=== PATIENT | female | born 1950 | race Caucasian/White ===

== ENCOUNTER → 2017-11-11 08:27 | Outpatient (REF) | payer MEDICARE, MEDICAID, SELFPAY ==
[2017-11-11 10:08] LABS: T4 Total Thyroxine 8.11 ug/dL (5.5-11.0)
[2017-11-11 10:22] LABS: TSH w/ Reflex to FT4 0.03 uIU/mL (0.47-4.68)
[2017-11-11 10:50] LABS: Free T4, Direct Thyroxine 1.25 ng/dL (0.78-2.19)
== END ==
LOC: LAB 08:27
PROVIDERS: PCP Family Medicine; Visit Provider Family Medicine
DX: R53.1 Weakness (principal)
CPT/HCPCS: 36415; 84436; 84439; 84443

== ENCOUNTER → 2018-02-21 10:31 | Outpatient (CLI) | payer MEDICARE, MEDICAID, SELFPAY ==
[2018-02-21 13:18] LABS: Free T4, Direct Thyroxine 1.09 ng/dL (0.78-2.19)
== END ==
PROVIDERS: Family Medicine; Visit Provider Registered Nurse
DX: E07.9 Disorder of thyroid, unspecified (principal)
CPT/HCPCS: 36415; 84439; 84443

== ENCOUNTER → 2018-03-10 13:22 | Outpatient (CLI) | payer MEDICARE, MEDICAID, SELFPAY ==
--- NOTE | 2018-03-10 | DI.US.S_ITS ---
PROCEDURE: US CAROTID DOPPLER BI INDICATIONS: RIGHT PARTIAL RETINAL VASCULAR OCCULSION TECHNIQUE: Color and pulse Doppler interrogation was performed of both carotid systems, with image documentation and velocity measurements. COMPARISON: None. FINDINGS: Stenosis calculations are based on SRU (Society of Radiologists in Ultrasound) criteria. Right side: Brachial blood pressure: Not obtained Common carotid artery peak systolic velocity: 41 cm/sec. Internal carotid artery peak systolic velocity: 35 cm/sec. Internal carotid artery end diastolic velocity: 13 cm/sec. External carotid artery peak systolic velocity: 68 cm/sec. ICA/CCA peak systolic ratio: 0.85 . Del Castillo scale imaging description: Mild plaque at the bifurcation Percent internal carotid artery stenosis: Less than 50%. Vertebral artery: Flow direction is antegrade. Left side: Brachial blood pressure: Not obtained Common carotid artery peak systolic velocity: 77 cm/sec. Internal carotid artery peak systolic velocity: 206 cm/sec. Internal carotid artery end diastolic velocity: 22 cm/sec. External carotid artery peak systolic velocity: 125 cm/sec. ICA/CCA peak systolic ratio: 2.7 . Del Castillo scale imaging description: Moderate plaque at the bifurcation Percent internal carotid artery stenosis: 50-69%. It is noted velocity has increased compared to prior exam. Vertebral artery: Not visualized IMPRESSION: 1. 50-69% stenosis within the left internal carotid artery, increased compared to prior exam. 2. Less than 50% stenosis of the right internal carotid artery, unchanged. Dictated by: Brittanie Arceo M.D. on 03/10/2018 at 16:00 Approved by: Brittanie Arceo M.D. on 03/10/2018 at 16:03
== END ==
PROVIDERS: PCP Family Medicine; Visit Provider Ophthalmology
DX: H34.9 Unspecified retinal vascular occlusion (principal); I65.23 Occlusion and stenosis of bilateral carotid arteries
CPT/HCPCS: 93880

== ENCOUNTER → 2018-04-04 08:20 | Outpatient (REF) | payer MEDICARE, MEDICAID, SELFPAY ==
[2018-04-04 10:04] LABS: Free T4, Direct Thyroxine 0.87 ng/dL (0.78-2.19)
== END ==
LOC: LAB 08:20
PROVIDERS: Registered Nurse; PCP Family Medicine; Visit Provider Family Medicine
DX: E03.9 Hypothyroidism, unspecified (principal)
CPT/HCPCS: 36415; 84439; 84443

== ENCOUNTER → 2018-04-17 14:52 | Outpatient (REF) | payer MEDICARE, MEDICAID, SELFPAY ==
[2018-04-17 16:25] LABS: Campylobacter Not Detected (Not Detect); Clostridium difficile toxin AB Not Detected (Not Detect); Plesiomonsa shigelloides Not Detected (Not Detect); Salmonella Not Detected (Not Detect); Vibrio Not Detected (Not Detect); Vibrio cholerae Not Detected (Not Detect)
[2018-04-17 16:26] LABS: Adenovirus F 40/41 Not Detected (Not Detect); Astrovirus Not Detected (Not Detect); Cryptosporidium Not Detected (Not Detect); Cyclospora cayetanensis Not Detected (Not Detect); Entamoeba histolytica Not Detected (Not Detect); Enteroaggregative E.coli Not Detected (Not Detect); Enteropathogenic E.coli Not Detected (Not Detect); Enterotoxigenic E.coli It/st Not Detected (Not Detect); Giardia lamblia Not Detected (Not Detect); Norovirus GI/GII Detected (Not Detect); Rotavirus A Not Detected (Not Detect); Sapovirus Not Detected (Not Detect); Shiga-like toxin-prod E.coli Not Detected (Not Detect); Shigella/Enteroinvasive E.coli Not Detected (Not Detect); Yersinia enterocolitica Not Detected (Not Detect)
== END ==
LOC: LAB 14:52
PROVIDERS: PCP Family Medicine; Visit Provider Student in an Organized Health Care Education/Training Program
DX: R19.5 Other fecal abnormalities (principal)
CPT/HCPCS: 87507

== ENCOUNTER → 2018-06-17 13:44 | Outpatient (CLI) | payer MEDICARE, MEDICAID, SELFPAY ==
[2018-06-17 14:06] LABS: Hematocrit 39.2 % (36-46); Hemoglobin 13.5 g/dL (12.0-16.0); Mean Corpuscular HGB Conc 34.4 % (30-36); Mean Corpuscular Hemoglobin 32.1 PG (26-34); Mean Corpuscular Volume 93.3 fL (80-100); Platelet Count 231 X10^3/uL (150-400); Red Blood Cell Count 4.21 X10^6/uL (4.0-5.2); Red Cell Distribution Width 13.5 % (11.6-14.8); White Blood Cell Count 6.9 X10^3/uL (4.5-11.0)
[2018-06-17 14:20] LABS: Hemoglobin A1C% w Est Avg Glu 6.2 % (4.0-6.0)
[2018-06-17 14:33] LABS: HEMOLYSIS < 15 (0-50); Iron 90 ug/dL (37-170)
[2018-06-17 14:38] LABS: BUN Creatinine Ratio 19.2 (6-22); Blood Urea Nitrogen 23 mg/dL (7-17); Calcium 9.1 mg/dL (8.4-10.2); Carbon Dioxide 25 mmol/L (22-32); Chloride 104 mmol/L (98-107); Cholesterol 218 mg/dL (140-199); Estimated Glomerular Filt Rate 44.7 mL/min (>60); Glucose 154 mg/dL (80-110); HDL Cholesterol 56 mg/dL (40-60); HEMOLYSIS < 15 (0-50); LDL Cholesterol Calculated 115 mg/dL (<100); Potassium 4.1 mmol/L (3.4-5.1); Sodium 139 mmol/L (137-145); Triglycerides 235 mg/dL (35-150)
[2018-06-17 14:44] LABS: Percent Iron Saturation 29 % (15-50); Total Iron Binding Capacity 308 ug/dL (265-497); Transferrin 249 mg/dL (206-381)
[2018-06-17 14:47] LABS: Free T3, Triiodothyronine Free 3.28 pg/mL (2.77-5.27); Free T4, Direct Thyroxine 1.54 ng/dL (0.78-2.19)
[2018-06-17 15:01] LABS: Thyroid Stimulating Hormone 3.58 uIU/mL (0.47-4.68)
[2018-06-17 15:46] LABS: Vitamin D 25 Hydroxy (D3) 48.7 ng/mL (30.0-100.0)
[2018-06-19 16:07] LABS: Anti Thyroglobulin Antibody 14 IU/mL (< 2); Thyroid Peroxidase Antibodies 1 IU/mL (< 9)
== END ==
PROVIDERS: PCP Student in an Organized Health Care Education/Training Program; Visit Provider Student in an Organized Health Care Education/Training Program
DX: D50.9 Iron deficiency anemia, unspecified (principal); E03.9 Hypothyroidism, unspecified; E11.9 Type 2 diabetes mellitus without complications; E66.01 Morbid (severe) obesity due to excess calories; Z13.220 Encounter for screening for lipoid disorders; E55.9 Vitamin D deficiency, unspecified
CPT/HCPCS: 36415; 80048; 80061; 82306; 83036; 83540; 83550; 84439; 84443; 84481; 85027; 86376; 86800

== ENCOUNTER → 2018-09-19 07:24 | Outpatient (ROUT) | payer MEDICARE, MEDICAID, SELFPAY ==
[2018-09-19 08:29] LABS: Alanine Aminotransferase 49 IU/L (9-52); Albumin 3.8 g/dL (3.5-5.0); Albumin Globulin Ratio 1.3 (1.0-2.8); Alkaline Phosphatase 115 U/L (38-126); Aspartate Aminotransferase 31 IU/L (14-36); BUN Creatinine Ratio 16.7 (6-22); Bilirubin Total 0.9 mg/dL (0.2-1.3); Blood Urea Nitrogen 25 mg/dL (7-17); Carbon Dioxide 29 mmol/L (22-32); Chloride 104 mmol/L (98-107); Cholesterol 114 mg/dL (140-199); Estimated Glomerular Filt Rate 34.4 mL/min (>60); Glucose 128 mg/dL (80-110); HDL Cholesterol 43 mg/dL (40-60); HEMOLYSIS < 15 (0-50); LDL Cholesterol Calculated 52 mg/dL (<100); Potassium 3.6 mmol/L (3.4-5.1); Sodium 141 mmol/L (137-145); Total Protein 6.8 g/dL (6.3-8.2); Triglycerides 94 mg/dL (35-150)
== END ==
PROVIDERS: PCP Student in an Organized Health Care Education/Training Program; Visit Provider Student in an Organized Health Care Education/Training Program
DX: E78.2 Mixed hyperlipidemia (principal); N18.3 Chronic kidney disease, stage 3 (moderate); I12.9 Hypertensive chronic kidney disease with stage 1 through stage 4 chronic kidney disease, or unspecified chronic kidney disease; Z79.899 Other long term (current) drug therapy
CPT/HCPCS: 36415; 80053; 80061

== ENCOUNTER → 2018-10-29 08:47 | Outpatient (ROUT) | payer MEDICARE, MEDICAID, SELFPAY ==
[2018-10-29 10:16] LABS: Add Manual Diff / Slide Review NO; Basophils Absolute Auto 100 /uL (0-100); Basophils Percent Auto 1.4 % (0-2); Eosinophils Absolute Auto 100 /uL (0-450); Eosinophils Percent Auto 1.8 % (2-4); Hematocrit 38.3 % (36-46); Hemoglobin 12.7 g/dL (12.0-16.0); Lymphocytes Absolute Auto 1600 /uL (1100-4500); Lymphocytes Percent Auto 29.3 % (25-40); Mean Corpuscular HGB Conc 33.2 % (30-36); Mean Corpuscular Hemoglobin 32.1 PG (26-34); Mean Corpuscular Volume 96.6 fL (80-100); Monocytes Absolute Auto 400 /uL (0-900); Monocytes Percent Auto 6.7 % (3-14); Neutrophils Absolute Auto 3300 /uL (1500-7000); Neutrophils Percent Auto 60.8 % (50-75); Platelet Count 200 X10^3/uL (150-400); Red Blood Cell Count 3.96 X10^6/uL (4.0-5.2); Red Cell Distribution Width 13.7 % (11.6-14.8); White Blood Cell Count 5.4 X10^3/uL (4.5-11.0)
[2018-10-29 10:58] LABS: BUN Creatinine Ratio 18.2 (6-22); Blood Urea Nitrogen 20 mg/dL (7-17); Calcium 9.2 mg/dL (8.4-10.2); Carbon Dioxide 29 mmol/L (22-32); Chloride 106 mmol/L (98-107); Estimated Glomerular Filt Rate 49.2 mL/min (>60); Glucose 113 mg/dL (80-110); HEMOLYSIS < 15 (0-50); Sodium 143 mmol/L (137-145)
== END ==
PROVIDERS: PCP Student in an Organized Health Care Education/Training Program; Visit Provider Student in an Organized Health Care Education/Training Program
DX: Z79.899 Other long term (current) drug therapy (principal); N28.9 Disorder of kidney and ureter, unspecified
CPT/HCPCS: 36415; 80048; 85025

== ENCOUNTER → 2018-10-31 09:46 | Outpatient (ROUT) | payer MEDICARE, MEDICAID, SELFPAY ==
[2018-10-31 09:52] LABS: Bacteria Urine None Seen; RBC Urine None Seen (0-5/HPF)
[2018-10-31 10:03] LABS: Appearance Urine UA CLOUDY; Bilirubin Urine UA NEGATIVE (NEGATIVE); Color Urine UA YELLOW; Glucose Urine UA NEGATIVE (Negative); Ketones Urine UA NEGATIVE (NEGATIVE); Leukocyte Esterase Urine UA 1+ (NEGATIVE); Nitrite Urine UA POSITIVE (Negative); Occult Blood Urine UA NEGATIVE (Negative); Protein Urine UA NEGATIVE (Negative); Urobilinogen Urine UA 0.2 E.U./dL (0.2)
[2018-10-31 10:09] LABS: Squamous Epithelial Cell Urine 5-10 /HPF (0-5/HPF); WBC Urine 5-10/HPF (0-5/HPF)
[2018-10-31 10:44] LABS: Creatinine Urine Random 38.9 mg/dL
[2018-10-31 10:49] LABS: Microalbumi Creatinin Ratio Ur 251.9 ug/mg CR (<30); Microalbumin Urine Random 9.8 mg/dL (0-1.6)
== END ==
PROVIDERS: PCP Student in an Organized Health Care Education/Training Program; Visit Provider Internal Medicine Nephrology
DX: N18.9 Chronic kidney disease, unspecified (principal)
CPT/HCPCS: 81001; 82043; 82570; 87077; 87086; 87186

== ENCOUNTER → 2018-11-03 09:34 | Outpatient (ROUT) | payer MEDICARE, MEDICAID, SELFPAY ==
[2018-11-03 10:42] LABS: Albumin 3.7 g/dL (3.5-5.0); BUN Creatinine Ratio 15.2 (6-22); Blood Urea Nitrogen 32 mg/dL (7-17); Calcium 9.1 mg/dL (8.4-10.2); Carbon Dioxide 28 mmol/L (22-32); Chloride 105 mmol/L (98-107); Estimated Glomerular Filt Rate 23.4 mL/min (>60); Glucose 112 mg/dL (80-110); HEMOLYSIS < 15 (0-50); Phosphorous 4.4 mg/dL (2.8-4.1); Potassium 3.9 mmol/L (3.4-5.1); Sodium 142 mmol/L (137-145)
[2018-11-05 12:34] LABS: Free Kappa Light Chain 46.3 mg/L (3.3-19.4); Free Kappa/ Lambda Ratio 1.18 (0.26-1.65)
[2018-11-06 13:47] LABS: Parathyroid Hormone Int 79 pg/mL (14-64)
[2018-11-06 21:53] LABS: Albumin 3.4 g/dL (3.8-4.8); Alpha 1 Globulin 0.3 g/dL (0.2-0.3); Alpha 2 Globulin 0.8 g/dL (0.5-0.9); Beta 1 Globulin 0.5 g/dL (0.4-0.6); Gamma Globulin 0.7 g/dL (0.8-1.7); Protein, Total 6.1 g/dL (6.1-8.1)
[2018-11-17 14:11] LABS: Immunofixation, Serum SEE COMMENT BELOW
== END ==
PROVIDERS: PCP Student in an Organized Health Care Education/Training Program; Visit Provider Internal Medicine Nephrology
DX: N18.3 Chronic kidney disease, stage 3 (moderate) (principal)
CPT/HCPCS: 36415; 80069; 82784; 83883; 83970; 84155; 84165; 86334

== ENCOUNTER 2018-11-08 18:46 | Emergency (ER) | payer MEDICARE, MEDICAID, SELFPAY ==
[2018-11-08 18:50] VITALS: BP 87/47; PULSE 56; RESP 19; TEMP 37; O2SAT 93
--- NOTE | 2018-11-08 19:11 | PC.NURSE ---
Patient with right hip pain s/p fall from wheelchair while reaching for something. No shortening or external rotation noted. CMS intact with strong pedal pulse. No external observable trauma.
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
--- NOTE | 2018-11-08 19:22 | DI.RAD.S_ITS ---
PROCEDURE: XR HIP W PEL IF DONE RT 2V INDICATIONS: right hip pain after all TECHNIQUE: AP pelvis with lateral view(s) of the left hip(s). COMPARISON: [facility], CT, ABDOMEN/PELVIS WITH CONTRAST, 12/27/2015, 20:24. FINDINGS: Bones: No fractures or dislocations. Pelvic ring appears intact. No suspicious bony lesions. Soft tissues: The visualized bowel gas pattern is normal. No suspicious soft tissue calcifications. Note is made of 2 left paramedian low pelvic rounded calcifications, the larger of which measures up to 1.5 cm and the smaller measures up to 1.2 cm. These were present on prior CT scanning dated 12/27/15, and appear to represent calcified sigmoid mesocolon lymph nodes. They have not changed over time. IMPRESSION: No trauma found. Mild symmetric hip joint osteoarthritis. Sigmoid mesocolon small calcified lymph nodes again incidentally noted. No followup necessary. Dictated by: Chavez Cook M.D. on 11/08/2018 at 19:55 Approved by: Chavez Cook M.D. on 11/08/2018 at 19:57
== END 2018-11-08 20:23 | disposition home or self-care (01) ==
PROVIDERS: Emergency Provider Emergency Medicine; PCP Student in an Organized Health Care Education/Training Program
DX: S70.01XA Contusion of right hip, initial encounter (principal); W05.0XXA Fall from non-moving wheelchair, initial encounter
CPT/HCPCS: 73502; 99282; 99283

== ENCOUNTER → 2018-11-19 06:51 | Outpatient (ROUT) | payer MEDICARE, MEDICAID, SELFPAY ==
[2018-11-19 08:01] LABS: BUN Creatinine Ratio 19.3 (6-22); Blood Urea Nitrogen 27 mg/dL (7-17); Calcium 9.1 mg/dL (8.4-10.2); Carbon Dioxide 27 mmol/L (22-32); Chloride 106 mmol/L (98-107); Estimated Glomerular Filt Rate 37.3 mL/min (>60); Glucose 127 mg/dL (80-110); HEMOLYSIS 27 (0-50); Potassium 3.7 mmol/L (3.4-5.1); Sodium 142 mmol/L (137-145)
== END ==
PROVIDERS: PCP Student in an Organized Health Care Education/Training Program; Visit Provider Internal Medicine Nephrology
DX: N28.9 Disorder of kidney and ureter, unspecified (principal)
CPT/HCPCS: 36415; 80048

== ENCOUNTER → 2019-01-23 07:18 | Outpatient (ROUT) | payer MEDICARE, MEDICAID, SELFPAY ==
[2019-01-23 08:05] LABS: BUN Creatinine Ratio 21.1 (6-22); Blood Urea Nitrogen 19 mg/dL (7-17); Calcium 9.3 mg/dL (8.4-10.2); Carbon Dioxide 29 mmol/L (22-32); Chloride 102 mmol/L (98-107); Estimated Glomerular Filt Rate > 60.0 mL/min (>60); Glucose 153 mg/dL (80-110); HEMOLYSIS < 15 (0-50); Potassium 3.8 mmol/L (3.4-5.1); Sodium 140 mmol/L (137-145)
== END ==
PROVIDERS: PCP Student in an Organized Health Care Education/Training Program; Visit Provider Internal Medicine Nephrology
DX: N28.9 Disorder of kidney and ureter, unspecified (principal)
CPT/HCPCS: 36415; 80048

== ENCOUNTER → 2019-05-22 08:14 | Outpatient (ROUT) | payer MEDICARE, MEDICAID, SELFPAY ==
[2019-05-22 08:54] LABS: Add Manual Diff / Slide Review NO; Basophils Absolute Auto 100 /uL (0-100); Basophils Percent Auto 2.1 % (0-2); Eosinophils Absolute Auto 200 /uL (0-450); Eosinophils Percent Auto 2.5 % (2-4); Hematocrit 37.4 % (36-46); Hemoglobin 13.2 g/dL (12.0-16.0); Lymphocytes Absolute Auto 1900 /uL (1100-4500); Lymphocytes Percent Auto 28.7 % (25-40); Mean Corpuscular HGB Conc 35.5 % (30-36); Mean Corpuscular Hemoglobin 32.7 PG (26-34); Mean Corpuscular Volume 92.3 fL (80-100); Monocytes Absolute Auto 500 /uL (0-900); Neutrophils Absolute Auto 3800 /uL (1500-7000); Neutrophils Percent Auto 58.7 % (50-75); Platelet Count 186 X10^3/uL (150-400); Red Blood Cell Count 4.05 X10^6/uL (4.0-5.2); Red Cell Distribution Width 13.4 % (11.6-14.8); White Blood Cell Count 6.6 X10^3/uL (4.5-11.0)
[2019-05-22 09:17] LABS: Albumin 3.8 g/dL (3.5-5.0); BUN Creatinine Ratio 19.1 (6-22); Blood Urea Nitrogen 21 mg/dL (7-17); Carbon Dioxide 28 mmol/L (22-32); Chloride 103 mmol/L (98-107); Estimated Glomerular Filt Rate 49.2 mL/min (>60); Glucose 194 mg/dL (80-110); HEMOLYSIS < 15 (0-50); Phosphorous 3.7 mg/dL (2.8-4.1); Potassium 3.7 mmol/L (3.4-5.1); Sodium 139 mmol/L (137-145)
[2019-05-26 15:46] LABS: Parathyroid Hormone Int 33 pg/mL (14-64)
== END ==
PROVIDERS: PCP Student in an Organized Health Care Education/Training Program; Visit Provider Internal Medicine Nephrology
DX: N18.2 Chronic kidney disease, stage 2 (mild) (principal)
CPT/HCPCS: 36415; 80069; 83970; 85025

== ENCOUNTER → 2019-11-25 07:11 | Outpatient (ROUT) | payer MEDICARE, MEDICAID, SELFPAY ==
[2019-11-25 08:57] LABS: Albumin 3.7 g/dL (3.5-5.0); BUN Creatinine Ratio 14.5 (6-22); Blood Urea Nitrogen 16 mg/dL (7-17); Calcium 9.3 mg/dL (8.4-10.2); Carbon Dioxide 31 mmol/L (22-32); Chloride 103 mmol/L (98-107); Estimated Glomerular Filt Rate 49.1 mL/min (>60); Glucose 152 mg/dL (80-110); HEMOLYSIS < 15 (0-50); Potassium 3.5 mmol/L (3.4-5.1); Sodium 139 mmol/L (137-145)
== END ==
PROVIDERS: PCP Student in an Organized Health Care Education/Training Program; Visit Provider Internal Medicine Nephrology
DX: N18.2 Chronic kidney disease, stage 2 (mild) (principal)
CPT/HCPCS: 36415; 80069

== ENCOUNTER → 2019-12-02 07:36 | Outpatient (ROUT) | payer MEDICARE, MEDICAID, SELFPAY ==
[2019-12-02 08:36] LABS: Hemoglobin A1C% w Est Avg Glu 7.7 % (4.0-6.0)
== END ==
PROVIDERS: PCP Student in an Organized Health Care Education/Training Program; Visit Provider Student in an Organized Health Care Education/Training Program
DX: Z13.220 Encounter for screening for lipoid disorders (principal); Z13.6 Encounter for screening for cardiovascular disorders; D50.9 Iron deficiency anemia, unspecified; E03.9 Hypothyroidism, unspecified; E11.9 Type 2 diabetes mellitus without complications; E66.01 Morbid (severe) obesity due to excess calories
CPT/HCPCS: 36415; 83036

== ENCOUNTER → 2020-02-03 11:21 | Outpatient (CLI) | payer MEDICARE, MEDICAID, SELFPAY ==
--- NOTE | 2020-02-03 11:23 | DI.MG.S_ITS ---
BILATERAL DIGITAL SCREENING MAMMOGRAM 3D/2D WITH CAD: 02/03/2020 CLINICAL: Routine screening. Family history of breast cancer. Comparison is made to exams dated: 09/13/2017 mammogram, 07/08/2013 mammogram, and 01/05/2013 mammogram - [facility]. The tissue of both breasts is predominantly fatty. Current study was also evaluated with a Computer Aided Detection (CAD) system. There are benign calcifications in both breasts. There also are benign post operative findings in both breasts. No significant masses, calcifications, or other findings are seen in either breast. There has been no significant interval change. IMPRESSION: BENIGN There is no mammographic evidence of malignancy. A 1 year screening mammogram is recommended. This exam was interpreted at Station ID: [id number]. NOTE: For mammograms, a report in lay terms will be sent to the patient. Approximately 15% of breast malignancies will not be visualized mammographically. In the management of a palpable breast mass, a negative mammogram must not discourage biopsy of a clinically suspicious lesion. Electronically Signed By: Samuel ruelas/chris:02/03/2020 12:40:30 letter sent: Normal Exam ACR BI-RADS Category 2: Benign Finding(s) 3342F
== END ==
PROVIDERS: PCP Student in an Organized Health Care Education/Training Program; Referring Provider Student in an Organized Health Care Education/Training Program; Visit Provider Student in an Organized Health Care Education/Training Program
DX: Z12.31 Encounter for screening mammogram for malignant neoplasm of breast (principal); Z80.3 Family history of malignant neoplasm of breast
CPT/HCPCS: 77063; 77067

== ENCOUNTER → 2020-07-27 08:18 | Outpatient (ROUT) | payer MEDICARE, MEDICAID, SELFPAY ==
[2020-07-27 08:46] LABS: Hemoglobin A1C% w Est Avg Glu 6.5 % (4.0-6.0)
== END ==
PROVIDERS: PCP Student in an Organized Health Care Education/Training Program; Visit Provider Student in an Organized Health Care Education/Training Program
DX: E11.9 Type 2 diabetes mellitus without complications (principal)
CPT/HCPCS: 36415; 83036

== ENCOUNTER → 2020-12-02 11:43 | Outpatient (ROUT) | payer MEDICARE, MEDICAID, SELFPAY ==
[2020-12-02 12:06] LABS: Add Manual Diff / Slide Review NO; Basophils Absolute Auto 100 /uL (0-100); Eosinophils Absolute Auto 100 /uL (0-450); Eosinophils Percent Auto 1.7 % (2-4); Hematocrit 35.9 % (36-46); Hemoglobin 11.9 g/dL (12.0-16.0); Lymphocytes Absolute Auto 1300 /uL (1100-4500); Mean Corpuscular HGB Conc 33.3 % (30-36); Mean Corpuscular Hemoglobin 29.6 PG (26-34); Monocytes Absolute Auto 400 /uL (0-900); Monocytes Percent Auto 6.5 % (3-14); Neutrophils Absolute Auto 4100 /uL (1500-7000); Neutrophils Percent Auto 68.8 % (50-75); Platelet Count 228 X10^3/uL (150-400); Red Blood Cell Count 4.03 X10^6/uL (4.0-5.2); Red Cell Distribution Width 14.8 % (11.6-14.8)
[2020-12-02 12:20] LABS: Albumin 4.2 g/dL (3.5-5.0); BUN Creatinine Ratio 14.1 (6-22); Blood Urea Nitrogen 20 mg/dL (7-17); Calcium 9.8 mg/dL (8.4-10.2); Carbon Dioxide 27 mmol/L (22-32); Chloride 105 mmol/L (98-107); Estimated Glomerular Filt Rate 36.5 mL/min (>60); Glucose 163 mg/dL (80-110); HEMOLYSIS < 15 (0-50); Phosphorous 3.5 mg/dL (2.8-4.1); Potassium 4.1 mmol/L (3.4-5.1); Sodium 142 mmol/L (137-145)
[2020-12-02 12:36] LABS: Vitamin D 25 Hydroxy (D3) 57.4 ng/mL (30.0-100.0)
[2020-12-03 07:36] LABS: Parathyroid Hormone Int 43 pg/mL (15-65)
== END ==
PROVIDERS: PCP Student in an Organized Health Care Education/Training Program; Visit Provider Internal Medicine Nephrology
DX: Z51.81 Encounter for therapeutic drug level monitoring (principal)
CPT/HCPCS: 36415; 80069; 82306; 83970; 85025

== ENCOUNTER → 2021-01-25 07:25 | Outpatient (ROUT) | payer MEDICARE, MEDICAID, SELFPAY ==
[2021-01-25 10:43] LABS: Free T4, Direct Thyroxine 0.48 ng/dL (0.78-2.19)
== END ==
PROVIDERS: PCP Student in an Organized Health Care Education/Training Program; Visit Provider Student in an Organized Health Care Education/Training Program
DX: E03.9 Hypothyroidism, unspecified (principal)
CPT/HCPCS: 36415; 84439; 84443

== ENCOUNTER → 2021-01-26 12:50 | Outpatient (CLI) | payer MEDICARE, MEDICAID, SELFPAY ==
[2021-01-26 14:40] LABS: Hemoglobin A1C% w Est Avg Glu 6.6 % (4.0-6.0)
[2021-01-26 14:41] LABS: BUN Creatinine Ratio 14.4 (6-22); Blood Urea Nitrogen 27 mg/dL (7-17); Estimated Glomerular Filt Rate 26.4 mL/min (>60)
[2021-01-26 15:00] LABS: Free T3, Triiodothyronine Free 2.75 pg/mL (2.77-5.27)
[2021-01-26 15:52] LABS: Thyroid Stimulating Hormone 128 uIU/mL (0.47-4.68)
== END ==
PROVIDERS: PCP Student in an Organized Health Care Education/Training Program; Referring Provider Student in an Organized Health Care Education/Training Program; Visit Provider Student in an Organized Health Care Education/Training Program
DX: R94.6 Abnormal results of thyroid function studies (principal); N18.9 Chronic kidney disease, unspecified; E11.9 Type 2 diabetes mellitus without complications; E03.9 Hypothyroidism, unspecified
CPT/HCPCS: 36415; 82565; 83036; 84439; 84443; 84481; 84520

== ENCOUNTER → 2021-03-08 08:50 | Outpatient (ROUT) | payer MEDICARE, MEDICAID, SELFPAY ==
[2021-03-08 09:45] LABS: BUN Creatinine Ratio 12.9 (6-22); Blood Urea Nitrogen 20 mg/dL (7-17); Calcium 8.9 mg/dL (8.4-10.2); Carbon Dioxide 29 mmol/L (22-32); Chloride 105 mmol/L (98-107); Glucose 106 mg/dL (80-110); HEMOLYSIS < 15 (0-50); Potassium 3.8 mmol/L (3.4-5.1); Sodium 141 mmol/L (137-145)
[2021-03-08 10:35] LABS: Free T3, Triiodothyronine Free 3.15 pg/mL (2.77-5.27); Free T4, Direct Thyroxine 0.84 ng/dL (0.78-2.19)
[2021-03-08 10:49] LABS: Thyroid Stimulating Hormone 52.9 uIU/mL (0.47-4.68)
== END ==
PROVIDERS: PCP Student in an Organized Health Care Education/Training Program; Visit Provider Student in an Organized Health Care Education/Training Program
DX: E03.9 Hypothyroidism, unspecified (principal); N18.4 Chronic kidney disease, stage 4 (severe)
CPT/HCPCS: 36415; 80048; 84439; 84443; 84481

== ENCOUNTER → 2021-04-25 16:16 | Outpatient (ROUT) | payer MEDICARE, MEDICAID, SELFPAY ==
[2021-04-25 17:00] LABS: Free T4, Direct Thyroxine 2.98 ng/dL (0.78-2.19)
[2021-04-25 17:14] LABS: Thyroid Stimulating Hormone 0.091 uIU/mL (0.47-4.68)
== END ==
PROVIDERS: PCP Student in an Organized Health Care Education/Training Program; Visit Provider Student in an Organized Health Care Education/Training Program
DX: E03.9 Hypothyroidism, unspecified (principal)
CPT/HCPCS: 84439; 84443

== ENCOUNTER → 2021-06-29 14:48 | Outpatient (CLI) | payer MEDICARE, MEDICAID, SELFPAY ==
[2021-06-29 20:01] LABS: Appearance Urine UA CLOUDY; Bilirubin Urine UA NEGATIVE (NEGATIVE); Color Urine UA YELLOW; Glucose Urine UA NEGATIVE (Negative); Ketones Urine UA TRACE (NEGATIVE); Leukocyte Esterase Urine UA 2+ (NEGATIVE); Nitrite Urine UA NEGATIVE (Negative); Occult Blood Urine UA 2+ (Negative); Protein Urine UA 3+ (Negative); Urobilinogen Urine UA 0.2 E.U./dL (0.2)
[2021-06-29 20:10] LABS: Bacteria Urine Many (>30); Culture Indicated Urine Specimen Cultured; RBC Urine 5-10/HPF (0-5/HPF); Squamous Epithelial Cell Urine 1-5 /HPF (0-5/HPF); Transitional Epi Cells Urine 5-10/HPF (0-5/HPF); WBC Urine >100/HPF (0-5/HPF)
== END ==
PROVIDERS: PCP Student in an Organized Health Care Education/Training Program; Referring Provider Student in an Organized Health Care Education/Training Program; Visit Provider Student in an Organized Health Care Education/Training Program
DX: R41.82 Altered mental status, unspecified (principal)
CPT/HCPCS: 81001; 87077; 87086; 87186

== ENCOUNTER 2021-08-17 16:33 | Emergency (ER) | payer MEDICARE, MEDICAID, SELFPAY ==
[2021-08-17 16:49] VITALS: BP 108/62; PULSE 61; RESP 17; TEMP 36.6; O2SAT 94
== END 2021-08-17 19:40 | disposition left against medical advice (07) ==
PROVIDERS: Emergency Provider Emergency Medicine; PCP Student in an Organized Health Care Education/Training Program
DX: N93.9 Abnormal uterine and vaginal bleeding, unspecified (principal)
CPT/HCPCS: 99281

== ENCOUNTER 2021-08-18 11:08 | Emergency (ER) | payer MEDICARE, MEDICAID, SELFPAY ==
[2021-08-18 11:22] VITALS: BP 115/53; PULSE 63; RESP 20; TEMP 36.9; O2SAT 92; BMI 32.9
[2021-08-18 11:25] VITALS: PULSE 89; O2SAT 92
[2021-08-18 11:30] VITALS: PULSE 90; O2SAT 91
[2021-08-18 11:31] VITALS: PULSE 89; O2SAT 92
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
[2021-08-18 11:34] VITALS: BP 115/79; PULSE 88; O2SAT 91
== END 2021-08-18 12:50 | disposition home or self-care (01) ==
PROVIDERS: Emergency Provider Emergency Medicine; PCP Student in an Organized Health Care Education/Training Program
DX: L89.159 Pressure ulcer of sacral region, unspecified stage (principal); B37.2 Candidiasis of skin and nail; Z87.891 Personal history of nicotine dependence
CPT/HCPCS: 99281

== ENCOUNTER → 2021-11-27 11:04 | Outpatient (CLI) | payer MEDICARE, MEDICAID, SELFPAY ==
[2021-11-27 14:03] LABS: Add Manual Diff / Slide Review NO; Basophils Absolute Auto 100 /uL (0-100); Basophils Percent Auto 0.9 % (0-2); Eosinophils Absolute Auto 100 /uL (0-450); Eosinophils Percent Auto 1.3 % (2-4); Hemoglobin 13.2 g/dL (12.0-16.0); Lymphocytes Absolute Auto 2700 /uL (1100-4500); Lymphocytes Percent Auto 32.4 % (25-40); Mean Corpuscular HGB Conc 33.9 % (30-36); Mean Corpuscular Volume 82.6 fL (80-100); Monocytes Absolute Auto 700 /uL (0-900); Monocytes Percent Auto 8.3 % (3-14); Neutrophils Absolute Auto 4700 /uL (1500-7000); Neutrophils Percent Auto 57.1 % (50-75); Platelet Count 247 X10^3/uL (150-400); Red Blood Cell Count 4.72 X10^6/uL (4.0-5.2); Red Cell Distribution Width 14.8 % (11.6-14.8); White Blood Cell Count 8.3 X10^3/uL (4.5-11.0)
[2021-11-27 15:02] LABS: Albumin 3.7 g/dL (3.5-5.0); BUN Creatinine Ratio 17.7 (6-22); Blood Urea Nitrogen 23 mg/dL (7-17); Calcium 9.2 mg/dL (8.4-10.2); Carbon Dioxide 25 mmol/L (22-32); Chloride 106 mmol/L (98-107); Estimated Glomerular Filt Rate 44 mL/min (>60); Glucose 79 mg/dL (80-110); HEMOLYSIS < 15 (0-50); Phosphorous 4.4 mg/dL (2.8-4.1); Potassium 4.1 mmol/L (3.4-5.1); Sodium 138 mmol/L (137-145)
[2021-11-27 15:11] LABS: Vitamin D 25 Hydroxy (D3) 55.7 ng/mL (30.0-100.0)
[2021-11-28 06:01] LABS: Parathyroid Hormone Int 43 pg/mL (15-65)
== END ==
PROVIDERS: PCP Student in an Organized Health Care Education/Training Program; Referring Provider Internal Medicine Nephrology; Visit Provider Nurse Practitioner Family
DX: N18.30 Chronic kidney disease, stage 3 unspecified (principal); N18.31 Chronic kidney disease, stage 3a; E83.9 Disorder of mineral metabolism, unspecified
CPT/HCPCS: 36415; 80069; 82306; 83970; 85025

== ENCOUNTER 2022-06-14 17:33 | Inpatient (IN) | payer MEDICARE, MEDICAID, SELFPAY ==
[2022-06-14] VITALS (13 sets, daily range): BP systolic 117–176; BP diastolic 58–102; PULSE 73–95; RESP 11–57; TEMP 36.3–36.9; O2SAT 89–96; BMI 29.3
--- NOTE | 2022-06-14 17:40 | ED.SOB ---
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 Dose: Not Given Documented By: Midodrine (Midodrine Hcl 5 Mg Tablet) 5 mg PO TID [facility] Last Admin: 06/18/22 01:37 Dose: 5 mg Documented By: COLTON Naloxone HCl (Naloxone 0.4 Mg/Ml Vial) 0.2 mg IV Q2MIN PRN PRN Reason: Opiate Reversal Naloxone HCl (Naloxone 0.4 Mg/Ml Vial) 0.2 mg IV Q2MIN PRN PRN Reason: Opiate Reversal Nystatin (Nystatin Powder 15gm) 1 applic TOP BID PRN PRN Reason: Rash Last Admin: 06/16/22 20:59 Dose: 1 applic Documented By: KENTRELL Pantoprazole Sodium (Pantoprazole Dr 40 Mg Tablet) 40 mg PO 0600 [facility] Last Admin: 06/19/22 06:24 Dose: 40 mg Documented By: Admin: 06/18/22 08:29 Dose: 40 mg Documented By: Admin: 06/17/22 05:53 Dose: 40 mg Documented By: Admin: 06/16/22 05:53 Dose: 40 mg Documented By: Admin: 06/15/22 06:18 Dose: 40 mg Documented By: MARLEN Potassium Chloride (Potassium Chloride 20 Meq Tab) 40 meq PO NOW ONE Stop: 06/15/22 07:34 Last Admin: 06/15/22 09:00 Dose: Not Given Documented By: RANJIT Potassium Chloride (Potassium Chloride 20 Meq/15 Ml Udc) 40 meq PO NOW ONE Stop: 06/15/22 15:19 Last Admin: 06/15/22 16:35 Dose: 40 meq Documented By: RANJIT Potassium Chloride (Potassium Chloride 20 Meq Tab) 20 meq PO NOW ONE Stop: 06/17/22 07:46 Last Admin: 06/17/22 10:11 Dose: 20 meq Documented By: VERA Prednisolone Acetate (Prednisolone Ophth Susp) 1 drops EYE-LEFT DAILY [facility] Last Admin: 06/19/22 08:47 Dose: 1 drop Documented By: Admin: 06/18/22 09:54 Dose: 1 drop Documented By: Admin: 06/17/22 09:49 Dose: 1 drop Documented By: Admin: 06/16/22 09:22 Dose: 1 drop Documented By: Admin: 06/15/22 10:32 Dose: 1 drop Documented By: RANJIT Sertraline HCl (Sertraline 50 Mg Tablet) 150 mg PO DAILY [facility] Last Admin: 06/19/22 08:46 Dose: 150 mg Documented By: Admin: 06/18/22 08:29 Dose: 150 mg Documented By: Admin: 06/17/22 09:49 Dose: 150 mg Documented By: Admin: 06/16/22 09:21 Dose: 150 mg Documented By: Admin: 06/15/22 10:34 Dose: 150 mg Documented By: RANJIT Sodium Chloride (Sodium Chloride 0.9% Flush) 10 ml IV PRN PRN PRN Reason: Flush Sodium Chloride (Sodium Chloride 0.9% Flush) 10 ml IV BID [facility] Admin: 06/19/22 09:23 Dose: 10 ml Documented By: Admin: 06/18/22 20:48 Dose: 10 ml Documented By: Admin: 06/18/22 08:31 Dose: 10 ml Documented By: Admin: 06/17/22 20:52 Dose: 10 ml Documented By: Admin: 06/17/22 10:11 Dose: 10 ml Documented By: Admin: 06/16/22 20:37 Dose: 10 ml Documented By: Admin: 06/16/22 09:22 Dose: 10 ml Documented By: Admin: 06/15/22 21:01 Dose: 10 ml Documented By: KENTRELL Timolol Maleate (Timolol 0.5% Ophth) 1 drops EYE-LEFT BID [facility] Last Admin: 06/19/22 08:47 Dose: 1 drop Documented By: Admin: 06/18/22 20:47 Dose: 1 drop Documented By: Admin: 06/18/22 10:32 Dose: 1 drop Documented By: Admin: 06/17/22 21:05 Dose: 1 drop Documented By: KENTRELL(2) Admin: 06/17/22 09:48 Dose: 1 drop Documented By: Admin: 06/16/22 20:37 Dose: 1 drop Documented By: Admin: 06/16/22 09:22 Dose: 1 drop Documented By: Admin: 06/15/22 20:45 Dose: 1 drop Documented By: Admin: 06/15/22 10:31 Dose: 1 drop Documented By: Admin: 06/14/22 23:00 Dose: Not Given Documented By: MARLEN Trazodone HCl (Trazodone 100 Mg Tablet) 100 mg PO BEDTIME [facility] Last Admin: 06/17/22 23:06 Dose: Not Given Documented By: KENTRELL(2) Admin: 06/16/22 20:37 Dose: 100 mg Documented By: Admin: 06/15/22 20:45 Dose: 100 mg Documented By: KENTRELL Trazodone HCl (Trazodone 50 Mg Tablet) 50 mg PO BEDTIME [facility] Last Admin: 06/18/22 23:08 Dose: 50 mg Documented By: ANAM Verapamil HCl (Verapamil Sr 120 Mg Tablet) 120 mg PO DAILY [facility] Last Admin: 06/17/22 09:49 Dose: 120 mg Documented By: Admin: 06/16/22 09:21 Dose: 120 mg Documented By: Admin: 06/15/22 10:35 Dose: 120 mg Documented By: RANJIT Vital Signs Vital signs: Vital Signs - 8 hr 06/14/22 17:38 06/14/22 17:37 06/14/22 17:38 Temperature 98.5 F Pulse Rate 95 H 91 H 91 H Respiratory Rate 18 11 L Blood Pressure 173/102 H Pulse Oximetry 89 L 91 89 L Oxygen Delivery Method Room Air Oxygen Flow Rate 06/14/22 17:38 06/14/22 18:00 06/14/22 18:01 Temperature Pulse Rate 78 78 Respiratory Rate 22 18 Blood Pressure 173/102 H Pulse Oximetry 96 96 Oxygen Delivery Method Oxygen Flow Rate 06/14/22 18:01 06/14/22 18:30 06/14/22 18:31 Temperature Pulse Rate 76 Respiratory Rate 23 Blood Pressure 176/79 H 117/66 Pulse Oximetry 94 Oxygen Delivery Method Oxygen Flow Rate 06/14/22 18:31 06/14/22 19:00 06/14/22 19:00 Temperature Pulse Rate 77 77 Respiratory Rate 57 H 17 Blood Pressure 122/58 L Pulse Oximetry 94 95 Oxygen Delivery Method Oxygen Flow Rate 06/14/22 19:30 06/14/22 19:30 06/14/22 20:00 Temperature Pulse Rate 75 80 Respiratory Rate 24 19 Blood Pressure 125/62 Pulse Oximetry 93 93 Oxygen Delivery Method Room Air Nasal Cannula Oxygen Flow Rate 4 4 06/14/22 20:01 06/14/22 20:01 06/14/22 20:30 Temperature Pulse Rate 79 Respiratory Rate Blood Pressure 133/95 H 126/88 Pulse Oximetry 92 Oxygen Delivery Method Nasal Cannula Oxygen Flow Rate 4 06/14/22 20:30 06/14/22 21:00 06/14/22 21:00 Temperature Pulse Rate 73 79 Respiratory Rate 20 33 H Blood Pressure 122/77 Pulse Oximetry 95 96 Oxygen Delivery Method Nasal Cannula Nasal Cannula Oxygen Flow Rate 4 4 MDM - SOB/Dyspnea <Maude Redding, DO - Last Filed: 06/22/22 07:52> Lab Data 06/14/22 18:19 06/14/22 18:19 Labs: Lab Results 06/14/22 06/14/22 06/14/22 Range/Units 18:19 18:19 18:19 WBC 8.3 (4.5-11.0) X10^3/uL RBC 4.73 (4.0-5.2) X10^6/uL Hgb 13.1 (12.0-16.0) g/dL Hct 39.8 (36-46) % MCV 84.3 (80-100) fL MCH 27.7 (26-34) PG MCHC 32.9 (30-36) % RDW 15.4 H (11.6-14.8) % Plt Count 215 (150-400) X10^3/uL Neut % (Auto) 69.5 (50-75) % Lymph % (Auto) 21.4 L (25-40) % Emanuel % (Auto) 7.5 (3-14) % Eos % (Auto) 0.9 L (2-4) % Baso % (Auto) 0.7 (0-2) % Neut # (Auto) 5700 (1957-0404) /uL Lymph # (Auto) 1800 (5458-0224) /uL Emanuel # (Auto) 600 (0-900) /uL Eos # (Auto) 100 (0-450) /uL Baso # (Auto) 100 (0-100) /uL PT 13.1 H (10.1-12.7) SECONDS INR 1.1 (0.9-1.3) APTT 20 L (26-36) SECONDS Sodium 141 (137-145) mmol/L Potassium 4.0 (3.4-5.1) mmol/L Chloride 106 (98-107) mmol/L Carbon Dioxide 24 (22-32) mmol/L BUN 16 (7-17) mg/dL Creatinine 0.98 (0.52-1.04) mg/dL Estimated GFR > 60 (>60) mL/min BUN/Creatinine Ratio 16.3 (6-22) Glucose 156 H (80-110) mg/dL Hemoglobin A1c (4.0-6.0) % Calcium 8.5 (8.4-10.2) mg/dL Magnesium (1.6-2.3) mg/dL Total Bilirubin 1.5 H (0.2-1.3) mg/dL AST 55 H (14-36) IU/L ALT 25 (<35) IU/L Alkaline Phosphatase 168 H (38-126) U/L Total Creatine Kinase 91 (30-135) U/L CK-MB (CK-2) TNP CK-MB (CK-2) Rel Index TNP Troponin I 0.033 (0.01-0.034) ng/mL NT-Pro-B Natriuret Pep (<125) pg/mL Total Protein 6.9 (6.3-8.2) g/dL Albumin 3.4 L (3.5-5.0) g/dL Globulin 3.5 (1.7-4.1) g/dL Albumin/Globulin Ratio 1.0 (1.0-2.8) Lipase 531 H (23-300) U/L TSH (0.47-4.68) uIU/mL SARS-CoV-2 (PCR) (Negative) 06/14/22 06/14/22 06/14/22 Range/Units 18:19 18:19 18:19 WBC (4.5-11.0) X10^3/uL RBC (4.0-5.2) X10^6/uL Hgb (12.0-16.0) g/dL Hct (36-46) % MCV (80-100) fL MCH (26-34) PG MCHC (30-36) % RDW (11.6-14.8) % Plt Count (150-400) X10^3/uL Neut % (Auto) (50-75) % Lymph % (Auto) (25-40) % Emanuel % (Auto) (3-14) % Eos % (Auto) (2-4) % Baso % (Auto) (0-2) % Neut # (Auto) (7574-1929) /uL Lymph # (Auto) (0582-9783) /uL Emanuel # (Auto) (0-900) /uL Eos # (Auto) (0-450) /uL Baso # (Auto) (0-100) /uL PT (10.1-12.7) SECONDS INR (0.9-1.3) APTT (26-36) SECONDS Sodium (137-145) mmol/L Potassium (3.4-5.1) mmol/L Chloride (98-107) mmol/L Carbon Dioxide (22-32) mmol/L BUN (7-17) mg/dL Creatinine (0.52-1.04) mg/dL Estimated GFR (>60) mL/min BUN/Creatinine Ratio (6-22) Glucose (80-110) mg/dL Hemoglobin A1c (4.0-6.0) % Calcium (8.4-10.2) mg/dL Magnesium 1.7 (1.6-2.3) mg/dL Total Bilirubin (0.2-1.3) mg/dL AST (14-36) IU/L ALT (<35) IU/L Alkaline Phosphatase (38-126) U/L Total Creatine Kinase (30-135) U/L CK-MB (CK-2) CK-MB (CK-2) Rel Index Troponin I (0.01-0.034) ng/mL NT-Pro-B Natriuret Pep 7930 H (<125) pg/mL Total Protein (6.3-8.2) g/dL Albumin (3.5-5.0) g/dL Globulin (1.7-4.1) g/dL Albumin/Globulin Ratio (1.0-2.8) Lipase (23-300) U/L TSH 0.020 L (0.47-4.68) uIU/mL SARS-CoV-2 (PCR) (Negative) 06/14/22 06/14/22 Range/Units 18:19 20:39 WBC (4.5-11.0) X10^3/uL RBC (4.0-5.2) X10^6/uL Hgb (12.0-16.0) g/dL Hct (36-46) % MCV (80-100) fL MCH (26-34) PG MCHC (30-36) % RDW (11.6-14.8) % Plt Count (150-400) X10^3/uL Neut % (Auto) (50-75) % Lymph % (Auto) (25-40) % Emanuel % (Auto) (3-14) % Eos % (Auto) (2-4) % Baso % (Auto) (0-2) % Neut # (Auto) (3465-3267) /uL Lymph # (Auto) (1323-3192) /uL Emanuel # (Auto) (0-900) /uL Eos # (Auto) (0-450) /uL Baso # (Auto) (0-100) /uL PT (10.1-12.7) SECONDS INR (0.9-1.3) APTT (26-36) SECONDS Sodium (137-145) mmol/L Potassium (3.4-5.1) mmol/L Chloride (98-107) mmol/L Carbon Dioxide (22-32) mmol/L BUN (7-17) mg/dL Creatinine (0.52-1.04) mg/dL Estimated GFR (>60) mL/min BUN/Creatinine Ratio (6-22) Glucose (80-110) mg/dL Hemoglobin A1c 5.7 (4.0-6.0) % Calcium (8.4-10.2) mg/dL Magnesium (1.6-2.3) mg/dL Total Bilirubin (0.2-1.3) mg/dL AST (14-36) IU/L ALT (<35) IU/L Alkaline Phosphatase (38-126) U/L Total Creatine Kinase (30-135) U/L CK-MB (CK-2) CK-MB (CK-2) Rel Index Troponin I (0.01-0.034) ng/mL NT-Pro-B Natriuret Pep (<125) pg/mL Total Protein (6.3-8.2) g/dL Albumin (3.5-5.0) g/dL Globulin (1.7-4.1) g/dL Albumin/Globulin Ratio (1.0-2.8) Lipase (23-300) U/L TSH (0.47-4.68) uIU/mL SARS-CoV-2 (PCR) Negative (Negative) MDM Narrative Medical decision making narrative: This is a 71-year-old female who had a witnessed choking event with loss of consciousness who has some persistent hypoxia afterwards. Patient does not appear to have any obstructive changes currently. Labs, chest x-ray EKG were being obtained. Patient has been placed on 4 L which improves her hypoxia she does not have any sensation of shortness of breath or discomfort. Patient signed out to Dr. Ware while awaiting work up and final disposition. <Breanna Ware, DO - Last Filed: 06/15/22 01:39> Lab Data Labs: Lab Results 06/14/22 06/14/22 06/14/22 Range/Units 18:19 18:19 18:19 WBC 8.3 (4.5-11.0) X10^3/uL RBC 4.73 (4.0-5.2) X10^6/uL Hgb 13.1 (12.0-16.0) g/dL Hct 39.8 (36-46) % MCV 84.3 (80-100) fL MCH 27.7 (26-34) PG MCHC 32.9 (30-36) % RDW 15.4 H (11.6-14.8) % Plt Count 215 (150-400) X10^3/uL Neut % (Auto) 69.5 (50-75) % Lymph % (Auto) 21.4 L (25-40) % Emanuel % (Auto) 7.5 (3-14) % Eos % (Auto) 0.9 L (2-4) % Baso % (Auto) 0.7 (0-2) % Neut # (Auto) 5700 (9999-9994) /uL Lymph # (Auto) 1800 (0339-5074) /uL Emanuel # (Auto) 600 (0-900) /uL Eos # (Auto) 100 (0-450) /uL Baso # (Auto) 100 (0-100) /uL PT 13.1 H (10.1-12.7) SECONDS INR 1.1 (0.9-1.3) APTT 20 L (26-36) SECONDS Sodium 141 (137-145) mmol/L Potassium 4.0 (3.4-5.1) mmol/L Chloride 106 (98-107) mmol/L Carbon Dioxide 24 (22-32) mmol/L BUN 16 (7-17) mg/dL Creatinine 0.98 (0.52-1.04) mg/dL Estimated GFR > 60 (>60) mL/min BUN/Creatinine Ratio 16.3 (6-22) Glucose 156 H (80-110) mg/dL Hemoglobin A1c (4.0-6.0) % Calcium 8.5 (8.4-10.2) mg/dL Magnesium (1.6-2.3) mg/dL Total Bilirubin 1.5 H (0.2-1.3) mg/dL AST 55 H (14-36) IU/L ALT 25 (<35) IU/L Alkaline Phosphatase 168 H (38-126) U/L Total Creatine Kinase 91 (30-135) U/L CK-MB (CK-2) TNP CK-MB (CK-2) Rel Index TNP Troponin I 0.033 (0.01-0.034) ng/mL NT-Pro-B Natriuret Pep (<125) pg/mL Total Protein 6.9 (6.3-8.2) g/dL Albumin 3.4 L (3.5-5.0) g/dL Globulin 3.5 (1.7-4.1) g/dL Albumin/Globulin Ratio 1.0 (1.0-2.8) Lipase 531 H (23-300) U/L TSH (0.47-4.68) uIU/mL SARS-CoV-2 (PCR) (Negative) 06/14/22 06/14/22 06/14/22 Range/Units 18:19 18:19 18:19 WBC (4.5-11.0) X10^3/uL RBC (4.0-5.2) X10^6/uL Hgb (12.0-16.0) g/dL Hct (36-46) % MCV (80-100) fL MCH (26-34) PG MCHC (30-36) % RDW (11.6-14.8) % Plt Count (150-400) X10^3/uL Neut % (Auto) (50-75) % Lymph % (Auto) (25-40) % Emanuel % (Auto) (3-14) % Eos % (Auto) (2-4) % Baso % (Auto) (0-2) % Neut # (Auto) (1820-5830) /uL Lymph # (Auto) (4831-0679) /uL Emanuel # (Auto) (0-900) /uL Eos # (Auto) (0-450) /uL Baso # (Auto) (0-100) /uL PT (10.1-12.7) SECONDS INR (0.9-1.3) APTT (26-36) SECONDS Sodium (137-145) mmol/L Potassium (3.4-5.1) mmol/L Chloride (98-107) mmol/L Carbon Dioxide (22-32) mmol/L BUN (7-17) mg/dL Creatinine (0.52-1.04) mg/dL Estimated GFR (>60) mL/min BUN/Creatinine Ratio (6-22) Glucose (80-110) mg/dL Hemoglobin A1c (4.0-6.0) % Calcium (8.4-10.2) mg/dL Magnesium 1.7 (1.6-2.3) mg/dL Total Bilirubin (0.2-1.3) mg/dL AST (14-36) IU/L ALT (<35) IU/L Alkaline Phosphatase (38-126) U/L Total Creatine Kinase (30-135) U/L CK-MB (CK-2) CK-MB (CK-2) Rel Index Troponin I (0.01-0.034) ng/mL NT-Pro-B Natriuret Pep 7930 H (<125) pg/mL Total Protein (6.3-8.2) g/dL Albumin (3.5-5.0) g/dL Globulin (1.7-4.1) g/dL Albumin/Globulin Ratio (1.0-2.8) Lipase (23-300) U/L TSH 0.020 L (0.47-4.68) uIU/mL SARS-CoV-2 (PCR) (Negative) 06/14/22 06/14/22 Range/Units 18:19 20:39 WBC (4.5-11.0) X10^3/uL RBC (4.0-5.2) X10^6/uL Hgb (12.0-16.0) g/dL Hct (36-46) % MCV (80-100) fL MCH (26-34) PG MCHC (30-36) % RDW (11.6-14.8) % Plt Count (150-400) X10^3/uL Neut % (Auto) (50-75) % Lymph % (Auto) (25-40) % Emanuel % (Auto) (3-14) % Eos % (Auto) (2-4) % Baso % (Auto) (0-2) % Neut # (Auto) (4409-0237) /uL Lymph # (Auto) (1598-7725) /uL Emanuel # (Auto) (0-900) /uL Eos # (Auto) (0-450) /uL Baso # (Auto) (0-100) /uL PT (10.1-12.7) SECONDS INR (0.9-1.3) APTT (26-36) SECONDS Sodium (137-145) mmol/L Potassium (3.4-5.1) mmol/L Chloride (98-107) mmol/L Carbon Dioxide (22-32) mmol/L BUN (7-17) mg/dL Creatinine (0.52-1.04) mg/dL Estimated GFR (>60) mL/min BUN/Creatinine Ratio (6-22) Glucose (80-110) mg/dL Hemoglobin A1c 5.7 (4.0-6.0) % Calcium (8.4-10.2) mg/dL Magnesium (1.6-2.3) mg/dL Total Bilirubin (0.2-1.3) mg/dL AST (14-36) IU/L ALT (<35) IU/L Alkaline Phosphatase (38-126) U/L Total Creatine Kinase (30-135) U/L CK-MB (CK-2) CK-MB (CK-2) Rel Index Troponin I (0.01-0.034) ng/mL NT-Pro-B Natriuret Pep (<125) pg/mL Total Protein (6.3-8.2) g/dL Albumin (3.5-5.0) g/dL Globulin (1.7-4.1) g/dL Albumin/Globulin Ratio (1.0-2.8) Lipase (23-300) U/L TSH (0.47-4.68) uIU/mL SARS-CoV-2 (PCR) Negative (Negative) Imaging Data Chest x-ray: Radiologist's Impression: Signed Patient: Brianna Sims MR#: [id number] : 1950 Acct:[id number] Age/Sex: 71 / F Date of Service: 06/15/22 Loc: 216-1 Accession Number: [id number] ?? Procedure: XR chest 1V Ordering Provider: Gena Mccord PROCEDURE:? XR CHEST 1V ? INDICATIONS:? ?Aspiration ? TECHNIQUE:? One view of the chest was acquired.? ? COMPARISON:? [facility], , XR CHEST 1V, 06/14/2022, 17:46. ? FINDINGS:? ? Surgical changes and devices:? None.? ? Lungs and pleura:? There is persistent pulmonary edema.? Linear left basilar retrocardiac opacities likely represent atelectasis the differential but the differential includes developing consolidation.? No pleural effusions or pneumothorax.? ? Mediastinum:? Mediastinal contours appear unchanged.? Heart size is enlarged.? ? Bones and chest wall:? No suspicious bony lesions.? Overlying soft tissues appear unremarkable.? ? IMPRESSION:? ? 1. Persistent pulmonary edema with linear left basilar atelectasis versus developing consolidation.? ? ? Dictated by: Klaus Edwards M.D. on 06/15/2022 at 1:15 ? ? [facility] Narrative Medical decision making narrative: This is a 71-year-old female who had a witnessed choking event with loss of consciousness who has some persistent hypoxia afterwards. Patient does not appear to have any obstructive changes currently. Labs, chest x-ray EKG were being obtained. Patient has been placed on 4 L which improves her hypoxia she does not have any sensation of shortness of breath or discomfort. Patient signed out to Dr. Ware while awaiting work up and final disposition. Jeanie-patient signed out to me by Dr. Redding evaluated myself. She is hypoxic requiring 3-4 L she is found have a BNP elevated at 7900 without an elevated troponin. She was previously not short of breath or hypoxic prior to her choking event. The choking and abdominal thrusting may have caused some stress on her heart. No prior history of congestive heart failure. She does have a history of a TBI gets around by wheelchair. Family at bedside. Patient would like to go home however she understands that she needs to stay no prior history of congestive heart failure. She is given Lasix in the ED Brianna Mccord admit patient Discharge Plan Departure Patient Disposition: Admitted As Inpatient Clinical Impression: Choking in adult, Hypoxia, Congestive heart failure Admit Date/Time: 06/14/22 21:07 Admit Provider: Gena Mccord
--- NOTE | 2022-06-14 17:41 | DI.RAD.S_ITS ---
PROCEDURE: XR CHEST 1V INDICATIONS: choking episode, +loc, low O2 TECHNIQUE: One view of the chest was acquired. COMPARISON: [facility], CHEST 2 VIEW, 10/18/2016, 13:29. [facility], , CHEST 1 VIEW, 01/02/2016, 12:50. [facility], , CHEST 1 VIEW, 12/27/2015, 22:36. FINDINGS: Surgical changes and devices: None. Lungs and pleura: An incomplete inspiratory result is noted, causing a crowded appearance to the lung markings. No focal infiltrates are seen. No pneumothorax or significant pleural effusions are seen. Mediastinum: Mediastinal contours appear normal. Heart size is at the upper limits of normal. Bones and chest wall: No suspicious bony lesions. Age-appropriate bony degenerative changes are seen. Overlying soft tissues appear unremarkable. IMPRESSION: Low lung volumes, without focal infiltrates. If there is strong clinical concern for developing aspiration pneumonia in this patient, please consider a short term followup examination, as aspiration pneumonia can have a delayed radiographic appearance. Dictated by: Oleg Anaya M.D. on 06/14/2022 at 17:11 Approved by: Oleg Anaya M.D. on 06/14/2022 at 17:11
[2022-06-14 18:30] LABS: Add Manual Diff / Slide Review NO; Basophils Absolute Auto 100 /uL (0-100); Basophils Percent Auto 0.7 % (0-2); Eosinophils Absolute Auto 100 /uL (0-450); Eosinophils Percent Auto 0.9 % (2-4); Hematocrit 39.8 % (36-46); Hemoglobin 13.1 g/dL (12.0-16.0); Lymphocytes Absolute Auto 1800 /uL (1100-4500); Lymphocytes Percent Auto 21.4 % (25-40); Mean Corpuscular HGB Conc 32.9 % (30-36); Mean Corpuscular Hemoglobin 27.7 PG (26-34); Mean Corpuscular Volume 84.3 fL (80-100); Monocytes Absolute Auto 600 /uL (0-900); Monocytes Percent Auto 7.5 % (3-14); Neutrophils Absolute Auto 5700 /uL (1500-7000); Neutrophils Percent Auto 69.5 % (50-75); Platelet Count 215 X10^3/uL (150-400); Red Blood Cell Count 4.73 X10^6/uL (4.0-5.2); Red Cell Distribution Width 15.4 % (11.6-14.8); White Blood Cell Count 8.3 X10^3/uL (4.5-11.0)
[2022-06-14 18:40] LABS: INR 1.1 (0.9-1.3); Prothrombin Time 13.1 SECONDS (10.1-12.7)
[2022-06-14 18:43] LABS: PTT Partial Thromboplastin Tim 20 SECONDS (26-36)
[2022-06-14 18:50] LABS: Alanine Aminotransferase 25 IU/L (<35); Albumin 3.4 g/dL (3.5-5.0); Alkaline Phosphatase 168 U/L (38-126); Aspartate Aminotransferase 55 IU/L (14-36); BUN Creatinine Ratio 16.3 (6-22); Bilirubin Total 1.5 mg/dL (0.2-1.3); Blood Urea Nitrogen 16 mg/dL (7-17); Calcium 8.5 mg/dL (8.4-10.2); Carbon Dioxide 24 mmol/L (22-32); Chloride 106 mmol/L (98-107); Creatine Kinase 91 U/L (30-135); Estimated Glomerular Filt Rate > 60 mL/min (>60); Globulin 3.5 g/dL (1.7-4.1); Glucose 156 mg/dL (80-110); HEMOLYSIS 43 (0-50); Lipase 531 U/L (23-300); Sodium 141 mmol/L (137-145); Total Protein 6.9 g/dL (6.3-8.2)
[2022-06-14 18:59] LABS: NT-proBNP (BNP-Adult 18+) 7930 pg/mL (<125)
[2022-06-14 19:01] LABS: Troponin I 0.033 ng/mL (0.01-0.034)
--- NOTE | 2022-06-14 19:48 | PC.NURSE ---
Care assumed by this RN, vitals prior to 1914 can not be verified
--- NOTE | 2022-06-14 20:12 | PC.NURSE ---
brother and sister in-law to see patient.
[2022-06-14] MEDS: FUROSEMIDE 40 MG/4 ML VIAL IV (21:10)
[2022-06-14 21:20] LABS: Appearance Urine UA CLOUDY; Bilirubin Urine UA NEGATIVE (NEGATIVE); Color Urine UA YELLOW; Glucose Urine UA NEGATIVE (Negative); Ketones Urine UA NEGATIVE (NEGATIVE); Leukocyte Esterase Urine UA 2+ (NEGATIVE); Nitrite Urine UA NEGATIVE (Negative); Occult Blood Urine UA 1+ (Negative); Protein Urine UA 2+ (Negative)
[2022-06-14 21:24] LABS: Magnesium 1.7 mg/dL (1.6-2.3)
[2022-06-14 21:31] LABS: Bacteria Urine Moderate (10-30); Culture Indicated Urine Specimen Cultured; RBC Urine 1-5/HPF (0-5/HPF); Squamous Epithelial Cell Urine 1-5 /HPF (0-5/HPF); WBC Urine 30-100/HPF (0-5/HPF)
[2022-06-14 21:33] LABS: COVID19 -Nasal RAPID Negative (Negative)
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
[2022-06-14 22:45] LABS: Hemoglobin A1C% w Est Avg Glu 5.7 % (4.0-6.0)
[2022-06-14] MEDS: GABAPENTIN 300 MG CAPSULE PO (23:00)
[2022-06-14] MEDS: ATORVASTATIN 20 MG TABLET PO (23:00)
[2022-06-15] VITALS (8 sets, daily range): BP systolic 104–158; BP diastolic 52–70; PULSE 56–78; RESP 18–20; TEMP 36.1–36.4; O2SAT 93–97
--- NOTE | 2022-06-15 | DI.ECHO.S_ITS ---
[facility] +---------+ Hospital +---------+ : : [id number] [place] : : : : [id number] : : : : Phone: [phone] Echocardiogram Report + + :Name: JONATHAN LOZANO Study Date: 06/15/2022 Height: 62 in : :[facility] ReadingLocation: Weight: 170 lb : : Gender: Female BSA: 1.8 m2 : :: 1950 Age: 71 yrs BP: 158/63 mmHg: :Reason For Study: NEW CONGESTIVE HEART FAILURE, HYPOXIA : :Ordering Physician: Jaswant FIELDSformed By: Pilar Kumar : :Referring: WILL FIELDS : + + Interpretation Summary The ejection fraction is estimated to be 55-60%. Grade II diastolic dysfunction. The right ventricular systolic function is normal. The right ventricular systolic pressure is estimated to be at least 58 mmHg based on an estimated right atrial pressure of 8 mm Hg. There is moderate mitral annular calcification. Mild mitral stenosis There is mild aortic regurgitation. There is moderate to severe aortic stenosis. The calculated aortic valve area is 0.80 cm2. The aortic valve mean gradient is 26 mmHg. The peak aortic velocity is 3.3 m/sec. Procedure: A two-dimensional transthoracic echocardiogram with color flow and Doppler was performed. The study quality was technically adequate. Comparison is made with the echocardiogram of 03/30/2013. The patient was in sinus rhythm with heart rates between 65-77 bpm during the exam. Left Ventricle: The left ventricle is normal in size. There is mild-moderate concentric left ventricular hypertrophy. The ejection fraction is estimated to be 55-60%. Grade II diastolic dysfunction. Right Ventricle: The right ventricle is mildly dilated. The right ventricular systolic function is normal. Atria: The left atrium is mildly dilated. The right atrium is mildly dilated. There is no Doppler evidence for an interatrial shunt. Mitral Valve: There is moderate mitral annular calcification. The mitral valve leaflets are mildly calcified. The mitral valve mean gradient is 3.7 mmHg. There is trace mitral regurgitation. Aortic Valve: The aortic valve is severely calcified. There is moderate to severe aortic stenosis. The peak aortic velocity is 3.3 m/sec. The aortic valve mean gradient is 26 mmHg. The calculated aortic valve area is 0.80 cm2. There is mild aortic regurgitation. Tricuspid Valve: The tricuspid valve is normal in structure and function. There is mild tricuspid regurgitation. The right ventricular systolic pressure is estimated to be at least 58 mmHg based on an estimated right atrial pressure of 8 mm Hg. Pulmonic Valve: The pulmonic valve is not well visualized. There is no pulmonic valvular regurgitation. Great Vessels: The aortic root is normal size. The dimensions of the ascending aorta are normal. The IVC is dilated (diameter is greater than 2.1 cm) yet it collapses greater than 50% with a sniff. This suggests a right atrial pressure of 8 mm Hg. Pericardium/ Pleura There is no pericardial effusion. MMode/2D Measurements & Calculations LVIDd: 4.3 cm LVOT diam: 2.0 cm LVIDs: 3.1 cm Ao root diam: 2.7 cm FS: 28.5 % asc Aorta Diam: 2.8 cm IVSd: 1.4 cm LVPWd: 1.2 cm LV marcos. diameter/BSA (cm/m^2): 2.4 LV sys. diameter/BSA (cm/m^2): 1.7 LA A2 area: 23.1 cm2 RA long axis: 4.8 cm LA A4 area: 23.3 cm2 RA area: 20.1 cm2 LA length (vol): 6.2 cm RA vol: 71.8 ml LA vol: 73.7 ml RA : 40.2 ml/m2 LA vol index: 41.3 ml/m2 IVC diam: 2.1 cm RVD1 (basal): 4.2 cm RVD2 (mid): 3.1 cm TAPSE: 1.7 cm Doppler Measurements & Calculations Ao V2 max: 326.5 cm/sec LVOT Max [place]: 80.5 cm/sec Ao V2 mean: 241.0 cm/sec LV V1 max P.6 mmHg Ao max P.5 mmHg LV V1 VTI: 21.0 cm Ao mean P.3 mmHg LIBRA(I,D): 0.79 cm2 Ao V2 VTI: 86.2 cm LIBRA(V,D): 0.80 cm2 sev ratio: 0.24 LIBRA indexed to BSA (cm^2/m^2): 0.44 MV E max cayetano: 104.2 cm/sec TR max cayetano: 354.3 cm/sec MV A max cayetano: 143.4 cm/sec TR max P.2 mmHg MV E/A: 0.73 PA V2 max: 116.2 cm/sec Med Peak E' [place]: 2.6 cm/sec PA V2 mean: 82.5 cm/sec E/E' med: 40.6 PA mean P.0 mmHg Lat Peak E' [place]: 3.5 cm/sec E/E' lat: 29.8 E/e' average: 35.2 MV dec time: 0.35 sec MVA(VTI): 1.7 cm2 MV V2 mean: 89.6 cm/sec SV(LVOT): 67.8 ml MV mean P.7 mmHg MV V2 VTI: 39.0 cm Reading Physician:MICHELL
--- NOTE | 2022-06-15 | DI.RAD.S_ITS ---
PROCEDURE: XR CHEST 1V INDICATIONS: ?Aspiration TECHNIQUE: One view of the chest was acquired. COMPARISON: [facility], CR, XR CHEST 1V, 06/14/2022, 17:46. FINDINGS: Surgical changes and devices: None. Lungs and pleura: There is persistent pulmonary edema. Linear left basilar retrocardiac opacities likely represent atelectasis the differential but the differential includes developing consolidation. No pleural effusions or pneumothorax. Mediastinum: Mediastinal contours appear unchanged. Heart size is enlarged. Bones and chest wall: No suspicious bony lesions. Overlying soft tissues appear unremarkable. IMPRESSION: 1. Persistent pulmonary edema with linear left basilar atelectasis versus developing consolidation. Dictated by: Klaus Edwards M.D. on 06/15/2022 at 1:15 Approved by: Klaus Edwards M.D. on 06/15/2022 at 1:18
[2022-06-15 00:28] LABS: Troponin I 0.085 ng/mL (0.01-0.034)
[2022-06-15 05:56] LABS: Add Manual Diff / Slide Review NO; Basophils Absolute Auto 100 /uL (0-100); Basophils Percent Auto 0.9 % (0-2); Eosinophils Absolute Auto 100 /uL (0-450); Eosinophils Percent Auto 1.1 % (2-4); Hematocrit 37.2 % (36-46); Hemoglobin 12.4 g/dL (12.0-16.0); Lymphocytes Absolute Auto 2000 /uL (1100-4500); Lymphocytes Percent Auto 25.9 % (25-40); Mean Corpuscular HGB Conc 33.4 % (30-36); Mean Corpuscular Hemoglobin 27.7 PG (26-34); Mean Corpuscular Volume 83.2 fL (80-100); Monocytes Absolute Auto 600 /uL (0-900); Monocytes Percent Auto 8.2 % (3-14); Neutrophils Absolute Auto 4900 /uL (1500-7000); Neutrophils Percent Auto 63.9 % (50-75); Platelet Count 225 X10^3/uL (150-400); Red Blood Cell Count 4.47 X10^6/uL (4.0-5.2); Red Cell Distribution Width 15.8 % (11.6-14.8); White Blood Cell Count 7.6 X10^3/uL (4.5-11.0)
[2022-06-15 05:57] LABS: Alanine Aminotransferase 22 IU/L (<35); Albumin 3.2 g/dL (3.5-5.0); Albumin Globulin Ratio 0.9 (1.0-2.8); Alkaline Phosphatase 158 U/L (38-126); Aspartate Aminotransferase 35 IU/L (14-36); BUN Creatinine Ratio 15.2 (6-22); Bilirubin Total 1.2 mg/dL (0.2-1.3); Blood Urea Nitrogen 16 mg/dL (7-17); Calcium 8.5 mg/dL (8.4-10.2); Carbon Dioxide 30 mmol/L (22-32); Chloride 107 mmol/L (98-107); Estimated Glomerular Filt Rate 56 mL/min (>60); Globulin 3.5 g/dL (1.7-4.1); Glucose 98 mg/dL (80-110); HEMOLYSIS < 15 (0-50); Magnesium 1.6 mg/dL (1.6-2.3); Potassium 3.3 mmol/L (3.4-5.1); Sodium 142 mmol/L (137-145); Total Protein 6.7 g/dL (6.3-8.2)
[2022-06-15 06:07] LABS: Troponin I 0.063 ng/mL (0.01-0.034)
[2022-06-15] MEDS: LEVOTHYROXINE 137 MCG TABLET PO (06:18)
[2022-06-15] MEDS: PANTOPRAZOLE DR 40 MG TABLET PO (06:18)
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
[2022-06-15] MEDS: MAGNESIUM SULFATE 2 GM/50 ML PIGGYBACK IV (08:21)
[2022-06-15] MEDS: ENOXAPARIN 40 MG/0.4 ML SYRINGE SUBCUT (08:21)
[2022-06-15] MEDS: FUROSEMIDE 40 MG/4 ML VIAL IV (08:21)
[2022-06-15] MEDS: cefTRIAXone 1,000 MG in SODIUM CHLORIDE 0.9% 100 ML 200 MG IV (08:40)
[2022-06-15] MEDS: TIMOLOL 0.5% OPHTH 1 DROPS EYE-LEFT ×2 (10:31→20:45)
[2022-06-15] MEDS: prednisoLONE OPHTH SUSP 1 DROPS EYE-LEFT (10:32)
[2022-06-15] MEDS: SERTRALINE 50 MG TABLET 150 MG PO (10:34)
[2022-06-15] MEDS: VERAPAMIL SR 120 MG TABLET PO (10:35)
[2022-06-15] MEDS: GABAPENTIN 300 MG CAPSULE PO ×3 (11:10→20:45)
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
[2022-06-15] MEDS: POTASSIUM CHLORIDE 20 MEQ/15 ML UDC 40 MEQ PO (16:35)
[2022-06-15] MEDS: INSULIN LISPRO 100 UNIT/ML 3ML VIAL SUBCUT (18:12)
[2022-06-15] MEDS: TRAZODONE 100 MG TABLET PO (20:45)
[2022-06-15] MEDS: ATORVASTATIN 20 MG TABLET PO (20:45)
[2022-06-15] MEDS: ACETAMINOPHEN SUSP 650 MG/20.3 ML UDC 1000 MG PO (20:47)
[2022-06-15] MEDS: SODIUM CHLORIDE 0.9% FLUSH 10 ML IV (21:01)
--- NOTE | 2022-06-15 23:30 | PC.NURSE ---
Patient is oriented only to self and birthdate. Breath sounds CTA but has a congested sounding, intermittent cough; oxygen at 3L/min per NC with sat of 93%. HRR w/murmur; rate is bradycardic in 50's w/telemetry reading of SR w/BBB. Denied nausea. BT present and abdomen is soft; has been incontinent of stool and reportedly had 3 loose stools on previous shift. Indwelling catheter is patent; urine is clear, dark yellow. Is needing to be repositioned q2h as unable to move herself. By history is non-ambulatory but gets up in chair. Denied pain. Wearing bilateral calf SCD's. Yeast type rash noted in perineum; zinc type barrier cream applied. Fall risk score is high and bed alarm is activated.
[2022-06-16] VITALS (7 sets, daily range): BP systolic 93–115; BP diastolic 39–56; PULSE 51–71; RESP 16–20; TEMP 35.6–36.3; O2SAT 92–94
[2022-06-16] MEDS: PANTOPRAZOLE DR 40 MG TABLET PO (05:53)
[2022-06-16] MEDS: LEVOTHYROXINE 137 MCG TABLET PO (05:54)
[2022-06-16] MEDS: cefTRIAXone 1,000 MG in SODIUM CHLORIDE 0.9% 100 ML 200 MG IV (08:18)
[2022-06-16] MEDS: ENOXAPARIN 40 MG/0.4 ML SYRINGE SUBCUT (08:18)
[2022-06-16] MEDS: FUROSEMIDE 40 MG/4 ML VIAL IV (08:18)
[2022-06-16 08:53] LABS: BUN Creatinine Ratio 15.4 (6-22); Blood Urea Nitrogen 18 mg/dL (7-17); Calcium 8.8 mg/dL (8.4-10.2); Carbon Dioxide 30 mmol/L (22-32); Chloride 104 mmol/L (98-107); Estimated Glomerular Filt Rate 50 mL/min (>60); Glucose 102 mg/dL (80-110); HEMOLYSIS < 15 (0-50); Potassium 3.7 mmol/L (3.4-5.1); Sodium 140 mmol/L (137-145)
[2022-06-16 08:55] LABS: Add Manual Diff / Slide Review NO; Basophils Absolute Auto 100 /uL (0-100); Basophils Percent Auto 0.9 % (0-2); Eosinophils Absolute Auto 100 /uL (0-450); Hematocrit 37.6 % (36-46); Hemoglobin 12.5 g/dL (12.0-16.0); Lymphocytes Absolute Auto 1900 /uL (1100-4500); Lymphocytes Percent Auto 27.9 % (25-40); Mean Corpuscular HGB Conc 33.2 % (30-36); Mean Corpuscular Hemoglobin 27.9 PG (26-34); Mean Corpuscular Volume 83.9 fL (80-100); Monocytes Absolute Auto 600 /uL (0-900); Monocytes Percent Auto 8.3 % (3-14); Neutrophils Absolute Auto 4200 /uL (1500-7000); Neutrophils Percent Auto 60.9 % (50-75); Platelet Count 217 X10^3/uL (150-400); Red Blood Cell Count 4.48 X10^6/uL (4.0-5.2); Red Cell Distribution Width 16.1 % (11.6-14.8); White Blood Cell Count 6.9 X10^3/uL (4.5-11.0)
[2022-06-16 08:56] LABS: Magnesium 1.9 mg/dL (1.6-2.3)
[2022-06-16] MEDS: GABAPENTIN 300 MG CAPSULE PO ×3 (09:21→20:36)
[2022-06-16] MEDS: SERTRALINE 50 MG TABLET 150 MG PO (09:21)
[2022-06-16] MEDS: VERAPAMIL SR 120 MG TABLET PO (09:21)
[2022-06-16] MEDS: TIMOLOL 0.5% OPHTH 1 DROPS EYE-LEFT ×2 (09:22→20:37)
[2022-06-16] MEDS: SODIUM CHLORIDE 0.9% FLUSH 10 ML IV ×2 (09:22→20:37)
[2022-06-16] MEDS: prednisoLONE OPHTH SUSP 1 DROPS EYE-LEFT (09:22)
--- NOTE | 2022-06-16 14:03 | ST.IPTN ---
Visit Care Team Role Provider Type Oscar Angel MD Primary Care Provider Physician Address: [address] [place] [address], [address], [place], [address] Breanna Ware DO Emergency Provider Physician Referring Provider Address: [address] [place] [address], [address] PATTIE Latham Admit Provider Physician Attending Provider Address: [address] [place] [address], [id number] SLIPPER MAKER Treatment Note SLIPPER MAKER Clinical Instructor Line Start: 06/15/22 15:24 Freq: Status: Active Protocol: Document 06/15/22 15:25 MC (Rec: 06/15/22 15:59 MC [id number]) Clinical Instructor Signature Clinical Instructor Clinical Instructor Yes SLIPPER MAKER Treatment Note Start: 06/16/22 13:46 Freq: Status: Active Protocol: Document 06/16/22 13:46 CG (Rec: 06/16/22 14:01 CG [id number]) Speech Pathology Treatment Note Session Time Visit Start Time 12:18 Visit Stop Time 01:02 Total Visit Minutes 44 Visit Information Visit Number 2 Setting Treatment Setting Acute Care Visit Type Note Type Treatment Note Next Note Type Next Note Type Treatment Note General Information Patient History Per H+P 06/14/22: Brianna Sims is a 71-year-old female with a history of bipolar, GERD, dyslipidemia, hypothyroidism, diabetes and chronic kidney disease stage 4.? Patient presented to the ED after a choking episode.? She had a witnessed choking event with chicken, apparently with a loss of consciousness for which she received abdominal thrusts.? Patient was breathing spontaneously afterwards.? There was no CPR. ? Medics arrived and states she was 87% to 89% persistently so started on oxygen.? Patient states she remembers choking, she does not remember the abdominal thrusts but knows where she, nor does she know why she is here.??Unable to conduct a meaningfull review of systems. She states that she was previously a diabetic and that she is no longer diabetic. Chest x-ray ordered in the ED was negative for suspected aspiration, she is afebrile, blood pressure 122/77 respiratory rate 33 oxygen saturation of 96% on 4 L she weighs 77.5 kg with a BMI of 29.3. CBC is unremarkable, glucose is 156 total bilirubin is 1.5 AST 55 alk-phos 168 proBNP is 7930 lipase is 531 TSH is low at 0.024 urine is possibly contaminated, and COVID-19 PCR is negative. She was administered IV Lasix 40 mg x1 in the emergency department. Subjective Observations/Patient Presentation Pt was awake and alert, seated partially upright in bed with her lunch meal tray when SLIPPER MAKER entered the room. Pt was initially at 35 degrees recline. She demonstrated continued cognitive communication deficits (e.g., attention, memory) and required repeated verbal cueing to refocus attention to task and conversation. She was agreeable to skilled interventions, but quickly forgot their purpose ( forgetting why she was on thickened liquids by the end of the session after SLIPPER MAKER education at beginning of session.) Chief Complaint(s) Swallowing,Cognitive Objective Short Term Goals The pt will perform safe swallow strategies with oral intake independently to reduce risk of aspiration. Shelter Goals The pt will safely tolerate least restrictive diet meet her nutrition and hydration needs. Treatment Activities SLIPPER MAKER provided assessment of current diet with mealtime analysis of lunch meal. Repositioned pt and lunch tray to reduce aspiration risk. Provided pt education regarding safe swallow strategies/precautions and aspiration risk. Communicated with nursing and physician regarding status and plan of care. Administered the [facility] Mental Status Examination to monitor cognition. Assessment Patient Response to Treatment Fair Impairments Identified Cognitive communication, Swallow Progress Towards Goals Slow Progress Assessment of Overall Progress Unchanged Assessment of Improvement During intake of regular solids, the pt demonstrated some anterior bolus loss with reduced sensation. Of more concern, her rate of intake/ bolus sizes demonstrated poor safety awareness as the pt frequently attempted to put large spoonfuls into her mouth and talk while eating, which resulted in coughing on solids . Pt tolerated regular solids WNL when given cues for small bites and no talking while eating. Trials nectar thick liquid resulted in cough x1 out of 5 trials, and mild wet vocal quality on approximately 50% of trials. Wet vocal quality and cough resolved with a chin tuck, though pt required verbal cues to utilize chin tuck in all trials. She did not recall having been instructed in safe swallowing strategies by SLIPPER MAKER during yesterday's evaluation, though swallow reccomendations sign was taped to her wall. Pt remains distractible and impulsive, and her cognition negatively impacts her safety with swallowing. Pt will continue on current diet but SLIPPER MAKER advised supervision for meals to cue pt to take small bites and only one bite at a time, as well as to use a chin tuck. SLUMS examination was completed, with pt scoring a 3 /30, indicative of dementia. She was oriented to place and person, but stated it was a Saturday and that the year was 1919-something. Pt seems slightly aware of cognitive deficits and was frustrated with herself throughout the evaluation. Recommend re-evaluating cognition for ongoing monitoring and possibly trial thin liquids on Saturday to determine tolerance. Reviewed with Patient Progress Being Made Patient/Caregiver Understanding Fair Plan Therapeutic Contents Cognitive-Linguistic Training, Swallowing/Feeding Provided Patient/Caregiver Instruction Plan of Care Comment Education re aspiration risk Therapy Recommendations Continue with Current Program
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
[2022-06-16] MEDS: ATORVASTATIN 20 MG TABLET PO (20:36)
[2022-06-16] MEDS: MELATONIN 3 MG TABLET PO (20:36)
[2022-06-16] MEDS: ACETAMINOPHEN SUSP 650 MG/20.3 ML UDC 1000 MG PO (20:36)
[2022-06-16] MEDS: TRAZODONE 100 MG TABLET PO (20:37)
[2022-06-16] MEDS: NYSTATIN POWDER 15GM 1 APPLIC TOP (20:59)
--- NOTE | 2022-06-16 21:47 | PC.NURSE ---
Addendum entered by Candace White R.N. 06/17/22 05:22: Sats initially were dropping as low as 83% intermittently while on 1L/min oxygen so had to increase her up to 3L/min in order to maintain sats > 88%. Have now weaned her down to 2L/min and is maintaining sats but when decreased further again starts dropping below 88%. Patient has been asleep all night and did not even arouse when vital signs were done at 0000 and again at 0400. Original Note: Patient is oriented to self and birthdate only. Identified age as 39. Breath sounds CTA but continuing to require oxygen at 1L/min per NC with sat of 93% but desats to < 88% when on RA. When asleep she is mouth breathing and intermittently desats to 87%; is on continuous oximetry. HRR w/telemetry reading of SR w/BBB. BP low at 99/45 and has been trending low; MAP was 68. Denies nausea. Is on fluid restriction and aspiration precautions; receiving nectar thick liquids. BT present and abdomen is soft; is incontinent of stool. Indwelling catheter is patent; urine is clear, yellow. Is unable to move herself so is being repositioned q2h. Perineum/groins are reddened and has nystatin powder ordered. Wearing bilateral calf SCD's. Denies pain. Fall risk score is high and bed alarm is activated.
[2022-06-17] VITALS (15 sets, daily range): BP systolic 64–125; BP diastolic 28–65; PULSE 51–71; RESP 16–20; TEMP 35.9–36.6; O2SAT 90–97
[2022-06-17] MEDS: LEVOTHYROXINE 137 MCG TABLET PO (05:53)
[2022-06-17] MEDS: PANTOPRAZOLE DR 40 MG TABLET PO (05:53)
[2022-06-17 06:03] LABS: Add Manual Diff / Slide Review NO; BUN Creatinine Ratio 16.3 (6-22); Basophils Absolute Auto 100 /uL (0-100); Basophils Percent Auto 1.2 % (0-2); Blood Urea Nitrogen 20 mg/dL (7-17); Calcium 8.5 mg/dL (8.4-10.2); Carbon Dioxide 30 mmol/L (22-32); Chloride 104 mmol/L (98-107); Eosinophils Absolute Auto 200 /uL (0-450); Eosinophils Percent Auto 3.2 % (2-4); Estimated Glomerular Filt Rate 47 mL/min (>60); Glucose 94 mg/dL (80-110); HEMOLYSIS < 15 (0-50); Hematocrit 35.5 % (36-46); Hemoglobin 11.8 g/dL (12.0-16.0); Lymphocytes Absolute Auto 1800 /uL (1100-4500); Lymphocytes Percent Auto 30.8 % (25-40); Mean Corpuscular HGB Conc 33.3 % (30-36); Mean Corpuscular Hemoglobin 27.7 PG (26-34); Mean Corpuscular Volume 83.4 fL (80-100); Monocytes Absolute Auto 600 /uL (0-900); Monocytes Percent Auto 9.6 % (3-14); Neutrophils Absolute Auto 3200 /uL (1500-7000); Neutrophils Percent Auto 55.2 % (50-75); Platelet Count 206 X10^3/uL (150-400); Potassium 3.5 mmol/L (3.4-5.1); Red Blood Cell Count 4.26 X10^6/uL (4.0-5.2); Red Cell Distribution Width 16.1 % (11.6-14.8); Sodium 139 mmol/L (137-145); White Blood Cell Count 5.8 X10^3/uL (4.5-11.0)
[2022-06-17 06:04] LABS: Magnesium 1.9 mg/dL (1.6-2.3)
[2022-06-17] MEDS: ENOXAPARIN 40 MG/0.4 ML SYRINGE SUBCUT (09:47)
[2022-06-17] MEDS: TIMOLOL 0.5% OPHTH 1 DROPS EYE-LEFT ×2 (09:48→21:05)
[2022-06-17] MEDS: GABAPENTIN 300 MG CAPSULE PO ×3 (09:49→20:51)
[2022-06-17] MEDS: SERTRALINE 50 MG TABLET 150 MG PO (09:49)
[2022-06-17] MEDS: prednisoLONE OPHTH SUSP 1 DROPS EYE-LEFT (09:49)
[2022-06-17] MEDS: VERAPAMIL SR 120 MG TABLET PO (09:49)
[2022-06-17] MEDS: POTASSIUM CHLORIDE 20 MEQ TAB PO (10:11)
[2022-06-17] MEDS: SODIUM CHLORIDE 0.9% FLUSH 10 ML IV ×2 (10:11→20:52)
--- NOTE | 2022-06-17 10:43 | CM.DPC ---
DCP Return to Assisted Living Per MD, pt getting close to being stable for d/c back to [facility]. SW called [facility] RN report number and updated staff that pt may be stable for d/c today and they will need to check with their administrators and SW faxed clinicals to review as pt now weaned to room air and ST completed swallow eval and recommendations. SW received a call back from [facility] staff stating they do not have the staff to accept pt back today Saturday but their RN will help coordinate return tomorrow Saturday. SW discussed that MD would need justification for medical criteria for pt to remain in the hospital and they acknowledged understanding but do not have the staff. SW updated RN and MD. Plan: SW to follow for plan of pt return to [facility] tomorrow Saturday when they have staff to accept pt back. CARLOS Steve
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
[2022-06-17] MEDS: FUROSEMIDE 40 MG TABLET PO (16:18)
[2022-06-17] MEDS: AMOXICILLIN/CLAV 875/125 MG 1 TAB PO ×2 (16:18→20:48)
[2022-06-17] MEDS: INSULIN LISPRO 100 UNIT/ML 3ML VIAL SUBCUT (17:13)
--- NOTE | 2022-06-17 20:35 | PC.NURSE ---
Addendum entered by Cabrera Martin R.N. 06/18/22 00:05: Leisa SEATING AND MOBILITY TECHNOLOGIST and Coordinator, Lucina RN assessed patient. BP 60/36 (42) HR 44 and 71/44 (53) HR 47. Nursing staff spoke with Hospitalist at 0000 and provided recent vital signs and a change in condition. PATTIE Kinney wants to be notified if MAP is below 55. Normal Saline .9% ordered at an increased rate from 125 mls/hr to 150mls/hr. Addendum entered by Cabrera Martin R.N. 06/17/22 23:16: 2217: Hospitalist aware of 68/49 Map 49. no new orders 2242: Hospitalist ordered 125 mls/hr for 4 hours and Q2h vitals. per nursing discretion, will reassess BP [id number]. Original Note: Manual BP at 1957 90/60 in slight trendelenburg, checked w/ noc hospitalist Gena Mccord. IV placed as previous no IV access. at 2032 manual BP 74/54 map 55. 500cc bolus ordered.
[2022-06-17] MEDS: SODIUM CHLORIDE 0.9% 500 ML 1000 ML IV (20:45)
[2022-06-17] MEDS: ACETAMINOPHEN SUSP 650 MG/20.3 ML UDC 1000 MG PO (20:48)
[2022-06-17] MEDS: ATORVASTATIN 20 MG TABLET PO (20:51)
[2022-06-17] MEDS: SODIUM CHLORIDE 0.9% 1,000 ML 125 ML IV (23:07)
[2022-06-18] VITALS (80 sets, daily range): BP systolic 65–175; BP diastolic 36–95; PULSE 39–78; RESP 10–54; TEMP 36.1–36.6; O2SAT 88–98
--- NOTE | 2022-06-18 00:58 | P.EN_ITS ---
Event Note Event Note (Rapid Response, Code, or fall): 71 year old female has been transferred to the ICU with ICU consult due to persistent hypotension. Her case was escalated to ICU nurses, nursing informatics specialist and finally the ED doc with concerns of her hypotension despite bolusing. Discussed the case with Dr. Márquez and recommended oral midodrine. I have ordered a set of all new labs to make sure she isn't developing sepsis. Hypotension, worsening during nights * Tolentino was placed, though she was developing reduced UOP * She will have a purwick applied so as to monitor her i/os * She has not been taking in much by mouth * She was bolused X 2 500 mls, then started on maintenance fluids of 125, then 150 ml/hour. * Transfer to ICU * She is alert and oriented, very weak * PT eval in the am, will likely delay discharge anticipated for tomorrow. * CBC, CMP, lactate, troponin, procalcitonin repeated today. She has worsening renal function today * BP meds and diuretics are being held. Choking episode w/syncope, probable aspiration PNA and acute respiratory failure with hypoxia. * started on rocephin x5 days, lost IV access will change to augmentin to complete course (to end 06/20) * Speech therapy put patient on mech soft with nectar thick liquids, continue PROPERTY WORKER evaluations. * still short of breath today, but off of supplemental oxygen. HFpEF exacerbation, acute, present on admission with acute respiratory failure with hypoxia. * continued IV lasix 40mg daily, working well currently now off of O2. Will transition to oral furosemide with loss of IV today. * Echocardiogram shows EF 55-60% with diastolic dysfunction and mod-severe * monitor lytes with continued diuresis. * transition to oral lasix today as noted above. Diabetes type 2, well controlled. * A1c is 5.7% * Low-dose correctional scale insulin * Diabetic carb controlled with 1200 cc fluid restriction Hypertension, chronic * Currently hypotensive Hypothyroidism, currently over corrected * TSH low at 0.02 * She takes levothyroxine 200 mcg daily recommend reduction in dosage to 137 mcg daily and recheck in 1 month CKD stage 4, chronic * Her renal functions appear to be normal currently Left eye diplopia suspected to be from traumatic brain injury * Continue timolol and daily prednisolone eyedrops Bipolar, depression, chronic * Continue home dose of sertraline, trazodone. Chronic pain syndrome * Continue Tylenol 1000 mg daily and gabapentin 300 mg p.o. t.i.d..? It appears that her gabapentin was lowered in dose recently. Critical care time: 40 minutes.
--- NOTE | 2022-06-18 00:58 | PM.EVENT ---
Event Note Event Note (Rapid Response, Code, or fall): 71 year old female has been transferred to the ICU with ICU consult due to persistent hypotension. Her case was escalated to ICU nurses, nursing informatics specialist and finally the ED doc with concerns of her hypotension despite bolusing. Discussed the case with Dr. Márquez and recommended oral midodrine. I have ordered a set of all new labs to make sure she isn't developing sepsis. Hypotension, worsening during nights Tolentino was placed, though she was developing reduced UOP She will have a purwick applied so as to monitor her i/os She has not been taking in much by mouth She was bolused X 2 500 mls, then started on maintenance fluids of 125, then 150 ml/hour. Transfer to ICU She is alert and oriented, very weak PT eval in the am, will likely delay discharge anticipated for tomorrow. CBC, CMP, lactate, troponin, procalcitonin repeated today. She has worsening renal function today BP meds and diuretics are being held. Choking episode w/syncope, probable aspiration PNA and acute respiratory failure with hypoxia. started on rocephin x5 days, lost IV access will change to augmentin to complete course (to end 06/20) Speech therapy put patient on mech soft with nectar thick liquids, continue FINANCIAL SYSTEMS ADMINISTRATOR evaluations. still short of breath today, but off of supplemental oxygen. HFpEF exacerbation, acute, present on admission with acute respiratory failure with hypoxia. continued IV lasix 40mg daily, working well currently now off of O2. Will transition to oral furosemide with loss of IV today. Echocardiogram shows EF 55-60% with diastolic dysfunction and mod-severe monitor lytes with continued diuresis. transition to oral lasix today as noted above. Diabetes type 2, well controlled. A1c is 5.7% Low-dose correctional scale insulin Diabetic carb controlled with 1200 cc fluid restriction Hypertension, chronic Currently hypotensive Hypothyroidism, currently over corrected TSH low at 0.02 She takes levothyroxine 200 mcg daily recommend reduction in dosage to 137 mcg daily and recheck in 1 month CKD stage 4, chronic Her renal functions appear to be normal currently Left eye diplopia suspected to be from traumatic brain injury Continue timolol and daily prednisolone eyedrops Bipolar, depression, chronic Continue home dose of sertraline, trazodone. Chronic pain syndrome Continue Tylenol 1000 mg daily and gabapentin 300 mg p.o. t.i.d..? It appears that her gabapentin was lowered in dose recently. Critical care time: 40 minutes.
[2022-06-18] MEDS: MIDODRINE HCL 5 MG TABLET PO (01:37)
--- NOTE | 2022-06-18 01:39 | DI.RAD.S_ITS ---
PROCEDURE: XR CHEST 1V INDICATIONS: Hypotension, concerning for sepsis, aspiration PNA TECHNIQUE: One view of the chest was acquired. COMPARISON: [facility], CR, XR CHEST 1V, 06/15/2022, 0:04. FINDINGS: Surgical changes and devices: None. Lungs and pleura: There is pulmonary vascular prominence suggestive of mild edema. No focal consolidation. No pleural effusions or pneumothorax. Mediastinum: Mediastinal contours are unchanged. Heart size is enlarged. Bones and chest wall: No suspicious bony lesions. Overlying soft tissues appear unremarkable. IMPRESSION: 1. Pulmonary vascular prominence suggestive of mild edema. Dictated by: Klaus Edwards M.D. on 06/18/2022 at 2:31 Approved by: Klaus Edwards M.D. on 06/18/2022 at 2:32
[2022-06-18 01:48] LABS: Alanine Aminotransferase 19 IU/L (<35); Albumin 2.9 g/dL (3.5-5.0); Albumin Globulin Ratio 0.9 (1.0-2.8); Alkaline Phosphatase 129 U/L (38-126); Aspartate Aminotransferase 34 IU/L (14-36); BUN Creatinine Ratio 14.7 (6-22); Bilirubin Total 0.7 mg/dL (0.2-1.3); Blood Urea Nitrogen 23 mg/dL (7-17); Calcium 8.4 mg/dL (8.4-10.2); Carbon Dioxide 23 mmol/L (22-32); Chloride 106 mmol/L (98-107); Estimated Glomerular Filt Rate 35 mL/min (>60); Globulin 3.3 g/dL (1.7-4.1); Glucose 111 mg/dL (80-110); HEMOLYSIS < 15 (0-50); Lactate (Lactic Acid) 1.3 mmol/L (0.7-2.1); Potassium 3.9 mmol/L (3.4-5.1); Sodium 137 mmol/L (137-145); Total Protein 6.2 g/dL (6.3-8.2)
[2022-06-18 01:49] LABS: Add Manual Diff / Slide Review NO; Basophils Absolute Auto 100 /uL (0-100); Basophils Percent Auto 0.9 % (0-2); Eosinophils Absolute Auto 200 /uL (0-450); Hematocrit 37.8 % (36-46); Hemoglobin 12.4 g/dL (12.0-16.0); Lymphocytes Absolute Auto 2500 /uL (1100-4500); Lymphocytes Percent Auto 29.9 % (25-40); Mean Corpuscular HGB Conc 32.8 % (30-36); Mean Corpuscular Hemoglobin 27.7 PG (26-34); Mean Corpuscular Volume 84.4 fL (80-100); Monocytes Absolute Auto 700 /uL (0-900); Monocytes Percent Auto 8.4 % (3-14); Neutrophils Absolute Auto 5000 /uL (1500-7000); Neutrophils Percent Auto 58.8 % (50-75); Platelet Count 277 X10^3/uL (150-400); Red Blood Cell Count 4.48 X10^6/uL (4.0-5.2); Red Cell Distribution Width 15.9 % (11.6-14.8); White Blood Cell Count 8.5 X10^3/uL (4.5-11.0)
[2022-06-18 01:51] LABS: Fractionated Inspired Oxygen 28; HCO3 ABG 23 mmol/L (23-27); Oxygen Saturation ABG 98 % (95-100); PCO2 ABG 34.2 mmHg (35-45); PO2 ABG 103 mmHg (80-100); TCO2 ABG 24 mmol/L (23-27); pH ABG 7.44 (7.35-7.45)
[2022-06-18 02:00] LABS: Troponin I 0.027 ng/mL (0.01-0.034)
[2022-06-18 02:05] LABS: Procalcitonin 0.09 ng/mL (<0.5)
[2022-06-18 02:21] LABS: Magnesium 1.9 mg/dL (1.6-2.3)
[2022-06-18] MEDS: AMPICILLIN/SULBACTAM 3 GM 3 GM in SODIUM CHLORIDE 0.9% 100 ML IV ×3 (03:04→17:31)
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
--- NOTE | 2022-06-18 03:23 | DI.RAD.S_ITS ---
PROCEDURE: XR CHEST 1V INDICATIONS: confirm central line placement TECHNIQUE: One view of the chest was acquired. COMPARISON: [facility], CR, XR CHEST 1V, 06/18/2022, 1:37. FINDINGS: Surgical changes and devices: Right-sided central venous catheter is present projecting over the right atrium. Lungs and pleura: Diffuse appearance of increased pulmonary vascularity. Mediastinum: Mediastinal contours appear normal. Heart size is mildly enlarged. Bones and chest wall: No suspicious bony lesions. Overlying soft tissues appear unremarkable. IMPRESSION: Increased vascularity suggestive of edema. Central line placement is present with distal tip projecting over the right atrium. Dictated by: Brittanie Arceo M.D. on 06/18/2022 at 7:56 Approved by: Brittanie Arceo M.D. on 06/18/2022 at 8:05
--- NOTE | 2022-06-18 03:35 | PM.PROC.1 ---
Procedures Date/Time Date of procedure: 06/18/22 Time of procedure: 03:36 General Procedure description: Asked by hospitalist to place central line for vasopressor administration and vascular access Central Line Placement Patient placed on monitor/pulse ox: Yes MD prep: mask, gown and gloves Central line prep: Povidone-Iodine 1% and sterile drapes applied Local anesthesia used: lidocaine 1% Amount of anesthesia used (ml): 2 Ultrasound used for placement: Yes Central line lumen inserted: triple Post procedure: sutured in place, good blood return, all ports aspirated, flushed, capped and sterile dressing applied Post procedure x-ray: tip of catheter in good position (initially too low and line pulled back to 15 cm mariano) and no pneumothorax seen Patient tolerated procedure: well and no complications Complications: none
[2022-06-18] MEDS: DOPAMINE HCL IN DEXTROSE 5 % 400 MG/250 ML PLAST..BAG 8.494 MG IV (03:42)
[2022-06-18] MEDS: LACTATED RINGERS 1,000 ML 50 ML IV (03:43)
[2022-06-18 04:59] LABS: Add Manual Diff / Slide Review NO; Basophils Absolute Auto 100 /uL (0-100); Basophils Percent Auto 1.3 % (0-2); Eosinophils Absolute Auto 200 /uL (0-450); Eosinophils Percent Auto 1.9 % (2-4); Hematocrit 36.9 % (36-46); Hemoglobin 12.2 g/dL (12.0-16.0); Lymphocytes Absolute Auto 2300 /uL (1100-4500); Lymphocytes Percent Auto 28.4 % (25-40); Mean Corpuscular HGB Conc 32.9 % (30-36); Mean Corpuscular Hemoglobin 27.6 PG (26-34); Mean Corpuscular Volume 83.8 fL (80-100); Monocytes Absolute Auto 800 /uL (0-900); Monocytes Percent Auto 9.6 % (3-14); Neutrophils Absolute Auto 4900 /uL (1500-7000); Neutrophils Percent Auto 58.8 % (50-75); Platelet Count 243 X10^3/uL (150-400); Red Blood Cell Count 4.41 X10^6/uL (4.0-5.2); Red Cell Distribution Width 16.2 % (11.6-14.8); White Blood Cell Count 8.3 X10^3/uL (4.5-11.0)
[2022-06-18 05:09] LABS: BUN Creatinine Ratio 16.3 (6-22); Blood Urea Nitrogen 24 mg/dL (7-17); Carbon Dioxide 24 mmol/L (22-32); Chloride 104 mmol/L (98-107); Estimated Glomerular Filt Rate 38 mL/min (>60); Glucose 119 mg/dL (80-110); HEMOLYSIS 16 (0-50); Potassium 3.7 mmol/L (3.4-5.1); Sodium 141 mmol/L (137-145)
[2022-06-18 05:21] LABS: Troponin I 0.087 ng/mL (0.01-0.034)
[2022-06-18 05:40] LABS: TSH w/ Reflex to FT4 < 0.02 uIU/mL (0.47-4.68)
--- NOTE | 2022-06-18 06:09 | PC.NURSE ---
Shift Note-Received patient at 0100 from , transferred to ICU room 226 for hypotension. Initial BP 149/84 after sliding to ICU bed, then down to 69/42(49) HRR 40-44 junctional, see vital trends. EKG, ABG, CXR done, Blood cultures and labs drawn, midodrine given, Dopamine started at 3mcg/kg/min, Unasyn infused, RIJ CL placed by ED PhD, tolerated well. Patient has been drowsy, oriented to person, place, and situation, participates in care and makes needs known, denies pain, dizziness, or shortness of breath. Tele-wind farm support specialist consulted.
[2022-06-18 06:12] LABS: Magnesium 1.9 mg/dL (1.6-2.3)
--- NOTE | 2022-06-18 08:02 | PC.NURSE ---
Late Note from 06/17/22 [id number] At initiation of IV abx this am pt complained of discomfort at the the IV site to left forearm. IV site found compromised. Dr. Max had been made aware and said ok to leave IV out as he changed pts IV meds to PO. Dr. Max reported that he would be trying to discharge this pt back to home today and she would not need her Tele or [place]. Tele and [place] removed by PCT as delegated.
[2022-06-18] MEDS: SERTRALINE 50 MG TABLET 150 MG PO (08:29)
[2022-06-18] MEDS: PANTOPRAZOLE DR 40 MG TABLET PO (08:29)
[2022-06-18] MEDS: ENOXAPARIN 40 MG/0.4 ML SYRINGE SUBCUT (08:30)
[2022-06-18] MEDS: SODIUM CHLORIDE 0.9% FLUSH 10 ML IV ×2 (08:31→20:48)
[2022-06-18] MEDS: LEVOTHYROXINE 137 MCG TABLET PO (08:35)
--- NOTE | 2022-06-18 09:30 | P.TELICUPN_ITS ---
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 Current Medications Current Medications Medications: Home Medications magnesium hydroxide 2,400 mg/10 mL oral suspension (Milk Of Magnesia Concentrated) 30 ml PO SEE INSTRUCTIONS #473 mL 10/16/16 [Rx Confirmed 06/14/22] aspirin 81 mg tablet,delayed release 81 mg PO DAILY #90 tabs 11/01/21 [Rx Confirmed 06/14/22] cholecalciferol (vitamin D3) 50 mcg (2,000 unit) tablet (Vitamin D3) 2,000 unit PO QDAY #90 tabs 12/06/21 [Rx Confirmed 06/14/22] nystatin 100,000 unit/gram topical powder See Rx Instructions topical TID #15 grams 12/19/21 [Rx Confirmed 06/14/22] atorvastatin 20 mg tablet 20 mg PO BEDTIME #90 tabs 01/03/22 [Rx Confirmed 06/14/22] levothyroxine 200 mcg tablet 200 mcg PO DAILY #90 tabs 01/03/22 [Rx Confirmed 06/14/22] omeprazole 20 mg capsule,delayed release 20 mg PO DAILY #90 caps 01/03/22 [Rx Confirmed 06/14/22] valacyclovir 500 mg tablet 500 mg PO DAILY #90 tabs 01/03/22 [Rx Confirmed 06/14/22] sertraline 100 mg tablet 150 mg PO QDAY #135 tabs 02/02/22 [Rx Confirmed 06/14/22] timolol maleate 0.5 % eye drops 1 drp EYE-LEFT BID #5 mL 02/14/22 [Rx Confirmed 06/14/22] prednisolone acetate 1 % eye drops,suspension 1 drp EYE-LEFT DAILY #5 mL 02/26/22 [Rx Confirmed 06/14/22] trazodone 100 mg tablet 100 mg PO HS #90 tabs 03/05/22 [Rx Confirmed 06/14/22] nystatin 100,000 unit/gram topical ointment 1 applic topical TID #30 grams 03/22/22 [Rx Confirmed 06/14/22] gabapentin 300 mg capsule 300 mg PO TID #270 caps 05/08/22 [Rx Confirmed 06/14/22] loperamide 2 mg capsule 2 mg PO PRN PRN loose stool #50 caps 05/18/22 [Rx Confirmed 06/14/22] acetaminophen 500 mg tablet 1,000 mg PO BEDTIME #180 tabs 05/29/22 [Rx Confirmed 06/14/22] verapamil 120 mg tablet,extended release 120 mg PO DAILY 06/14/22 [History C onfirmed 06/14/22] Visit Medications (administered) Generic Name Dose Route Start Last Admin Trade Name Nati PRN Reason Stop Dose Admin Acetaminophen 1,000 mg 06/15/22 21:00 06/17/22 20:48 Acetaminophen Susp 650 Mg/20.3 Ml Udc PO 1,000 mg BEDTIME ELENI Administration Atorvastatin Calcium 20 mg 06/14/22 22:15 06/17/22 20:51 Atorvastatin 20 Mg Tablet PO 20 mg BEDTIME ELENI Administration Enoxaparin Sodium 40 mg 06/15/22 09:00 06/18/22 08:30 Enoxaparin 40 Mg/0.4 Ml Syringe SUBCUT 40 mg DAILY ELENI Administration Gabapentin 300 mg 06/14/22 22:15 06/17/22 20:51 Gabapentin 300 Mg Capsule PO 300 mg TID ELENI Administration Ampicillin Sodium/Sulbactam 100 mls @ 200 mls/hr 06/18/22 02:30 06/18/22 05:05 Sodium 3 gm/ Sodium Chloride IV Infused Q8H ELENI Infusion Dopamine HCl/Dextrose 400 mg in 250 mls @ 8.494 mls/hr 06/18/22 03:00 06/18/22 03:42 Dopamine 400 Mg-D5w 250 Ml IV 3 mcg/kg/min TITRATE ELENI 8.494 mls/hr Administration Protocol 3 MCG/KG/MIN Lactated Ringer's 1,000 mls @ 50 mls/hr 06/18/22 03:15 06/18/22 03:43 Lactated Ringers IV 50 mls/hr CONT ELENI Administration Insulin Human Lispro 0 unit 06/14/22 21:00 06/18/22 08:30 Insulin Lispro 100 Unit/Ml 3ml Vial SUBCUT Not Given ACHS ELENI Protocol Levothyroxine Sodium 137 mcg 06/15/22 06:00 06/18/22 08:35 Levothyroxine 137 Mcg Tablet PO 137 mcg DAILY@0600 ELENI Administration Melatonin 3 mg 06/16/22 21:00 06/17/22 23:07 Melatonin 3 Mg Tablet PO Not Given BEDTIME ELENI Nystatin 1 applic 06/15/22 23:40 06/16/22 20:59 Nystatin Powder 15gm TOP 1 applic BID PRN Administration Rash Pantoprazole Sodium 40 mg 06/15/22 06:00 06/18/22 08:[address] 40 Mg Tablet PO 40 mg 0600 ELENI Administration Prednisolone Acetate 1 drops 06/15/22 09:00 06/17/22 09:49 Prednisolone Ophth Susp EYE-LEFT 1 drop DAILY ELENI Administration Sertraline HCl 150 mg 06/15/22 09:00 06/18/22 08:29 Sertraline 50 Mg Tablet PO 150 mg DAILY ELENI Administration Sodium Chloride 10 ml 06/15/22 21:00 06/18/22 08:31 Sodium Chloride 0.9% Flush IV 10 ml BID ELENI Administration Timolol Maleate 1 drops 06/14/22 22:15 06/17/22 21:05 Timolol 0.5% Ophth EYE-LEFT 1 drop BID ELENI Administration Objective Labs 06/18/22 04:48 06/18/22 04:48 Labs: Laboratory Results - last 24 hr 06/18/22 06/18/22 06/18/22 01:02 01:24 01:24 WBC RBC Hgb Hct MCV MCH MCHC RDW Plt Count Neut % (Auto) Lymph % (Auto) Nance % (Auto) Eos % (Auto) Baso % (Auto) Neut # (Auto) Lymph # (Auto) Nance # (Auto) Eos # (Auto) Baso # (Auto) ABG pH 7.44 ABG pCO2 34.2 L ABG pO2 103 H ABG HCO3 23 ABG Total CO2 24 ABG O2 Saturation 98 ABG Base Excess -1.0 FiO2 28 Sodium Potassium Chloride Carbon Dioxide BUN Creatinine Estimated GFR BUN/Creatinine Ratio Glucose Lactate Calcium Magnesium 1.9 Total Bilirubin AST ALT Alkaline Phosphatase Troponin I 0.027 Total Protein Albumin Globulin Albumin/Globulin Ratio Procalcitonin TSH Free T4 Nasal Screen MRSA (PCR) 06/18/22 06/18/22 06/18/22 01:24 01:24 01:24 WBC 8.5 RBC 4.48 Hgb 12.4 Hct 37.8 MCV 84.4 MCH 27.7 MCHC 32.8 RDW 15.9 H Plt Count 277 Neut % (Auto) 58.8 Lymph % (Auto) 29.9 Nance % (Auto) 8.4 Eos % (Auto) 2.0 Baso % (Auto) 0.9 Neut # (Auto) 5000 Lymph # (Auto) 2500 Nance # (Auto) 700 Eos # (Auto) 200 Baso # (Auto) 100 ABG pH ABG pCO2 ABG pO2 ABG HCO3 ABG Total CO2 ABG O2 Saturation ABG Base Excess FiO2 Sodium 137 Potassium 3.9 Chloride 106 Carbon Dioxide 23 BUN 23 H Creatinine 1.56 H Estimated GFR 35 L BUN/Creatinine Ratio 14.7 Glucose 111 H Lactate 1.3 Calcium 8.4 Magnesium Total Bilirubin 0.7 AST 34 ALT 19 Alkaline Phosphatase 129 H Troponin I Total Protein 6.2 L Albumin 2.9 L Globulin 3.3 Albumin/Globulin Ratio 0.9 L Procalcitonin TSH Free T4 Nasal Screen MRSA (PCR) 06/18/22 06/18/22 06/18/22 01:24 01:30 04:48 WBC 8.3 RBC 4.41 Hgb 12.2 Hct 36.9 MCV 83.8 MCH 27.6 MCHC 32.9 RDW 16.2 H Plt Count 243 Neut % (Auto) 58.8 Lymph % (Auto) 28.4 Nance % (Auto) 9.6 Eos % (Auto) 1.9 L Baso % (Auto) 1.3 Neut # (Auto) 4900 Lymph # (Auto) 2300 Nance # (Auto) 800 Eos # (Auto) 200 Baso # (Auto) 100 ABG pH ABG pCO2 ABG pO2 ABG HCO3 ABG Total CO2 ABG O2 Saturation ABG Base Excess FiO2 Sodium Potassium Chloride Carbon Dioxide BUN Creatinine Estimated GFR BUN/Creatinine Ratio Glucose Lactate Calcium Magnesium Total Bilirubin AST ALT Alkaline Phosphatase Troponin I Total Protein Albumin Globulin Albumin/Globulin Ratio Procalcitonin 0.09 TSH Free T4 Nasal Screen MRSA (PCR) Negative for mrsa 06/18/22 06/18/22 06/18/22 04:48 04:48 04:48 WBC RBC Hgb Hct MCV MCH MCHC RDW Plt Count Neut % (Auto) Lymph % (Auto) Nance % (Auto) Eos % (Auto) Baso % (Auto) Neut # (Auto) Lymph # (Auto) Nance # (Auto) Eos # (Auto) Baso # (Auto) ABG pH ABG pCO2 ABG pO2 ABG HCO3 ABG Total CO2 ABG O2 Saturation ABG Base Excess FiO2 Sodium 141 Potassium 3.7 Chloride 104 Carbon Dioxide 24 BUN 24 H Creatinine 1.47 H Estimated GFR 38 L BUN/Creatinine Ratio 16.3 Glucose 119 H Lactate Calcium 8.0 L Magnesium Total Bilirubin AST ALT Alkaline Phosphatase Troponin I 0.087 H Total Protein Albumin Globulin Albumin/Globulin Ratio Procalcitonin TSH < 0.02 L Free T4 2.20 H Nasal Screen MRSA (PCR) 06/18/22 04:48 WBC RBC Hgb Hct MCV MCH MCHC RDW Plt Count Neut % (Auto) Lymph % (Auto) Nance % (Auto) Eos % (Auto) Baso % (Auto) Neut # (Auto) Lymph # (Auto) Nance # (Auto) Eos # (Auto) Baso # (Auto) ABG pH ABG pCO2 ABG pO2 ABG HCO3 ABG Total CO2 ABG O2 Saturation ABG Base Excess FiO2 Sodium Potassium Chloride Carbon Dioxide BUN Creatinine Estimated GFR BUN/Creatinine Ratio Glucose Lactate Calcium Magnesium 1.9 Total Bilirubin AST ALT Alkaline Phosphatase Troponin I Total Protein Albumin Globulin Albumin/Globulin Ratio Procalcitonin TSH Free T4 Nasal Screen MRSA (PCR) Exam Vital Signs (past 8 hours): - 06/18/22 01:36 06/18/22 01:36 06/18/22 01:59 Temperature Pulse Rate 42 L 42 L Respiratory Rate 17 19 Blood Pressure 65/36 L Pulse Oximetry 94 96 Oxygen Delivery Method Oxygen Flow Rate 06/18/22 01:59 06/18/22 02:00 06/18/22 02:00 Temperature Pulse Rate 42 L Respiratory Rate 19 Blood Pressure 71/44 L 73/44 L Pulse Oximetry 95 Oxygen Delivery Method Oxygen Flow Rate 06/18/22 02:15 06/18/22 02:15 06/18/22 02:30 Temperature Pulse Rate 41 L Respiratory Rate 15 Blood Pressure 70/44 L 70/45 L Pulse Oximetry 95 Oxygen Delivery Method Oxygen Flow Rate 06/18/22 02:30 06/18/22 02:46 06/18/22 02:46 Temperature Pulse Rate 40 L 40 L Respiratory Rate 20 17 Blood Pressure 86/54 L Pulse Oximetry 98 98 Oxygen Delivery Method Oxygen Flow Rate 06/18/22 03:00 06/18/22 03:01 06/18/22 03:01 Temperature Pulse Rate 40 L 40 L Respiratory Rate 19 15 Blood Pressure 96/55 L Pulse Oximetry 96 97 Oxygen Delivery Method Oxygen Flow Rate 06/18/22 03:15 06/18/22 03:15 06/18/22 03:30 Temperature Pulse Rate 39 L 47 L Respiratory Rate 15 25 H Blood Pressure 89/62 L Pulse Oximetry 96 96 Oxygen Delivery Method Oxygen Flow Rate 06/18/22 03:31 06/18/22 03:31 06/18/22 03:45 Temperature Pulse Rate 47 L 48 L Respiratory Rate 28 H 19 Blood Pressure 103/51 L Pulse Oximetry 95 88 L Oxygen Delivery Method Oxygen Flow Rate 06/18/22 03:45 06/18/22 04:00 06/18/22 04:00 Temperature 97.9 F Pulse Rate 49 L Respiratory Rate 25 H Blood Pressure 101/54 L 95/53 L Pulse Oximetry 93 Oxygen Delivery Method Oxygen Flow Rate 2 06/18/22 04:00 06/18/22 04:30 06/18/22 04:51 Temperature Pulse Rate 54 L 57 L Respiratory Rate 15 16 Blood Pressure 95/53 L Pulse Oximetry 92 94 Oxygen Delivery Method Oxygen Flow Rate 06/18/22 04:51 06/18/22 04:00 06/18/22 05:00 Temperature Pulse Rate 49 L Respiratory Rate Blood Pressure 95/54 L 95/53 L Pulse Oximetry Oxygen Delivery Method Nasal Cannula Oxygen Flow Rate 06/18/22 05:00 06/18/22 05:06 06/18/22 05:06 Temperature Pulse Rate 61 61 Respiratory Rate 17 16 Blood Pressure 102/59 L Pulse Oximetry 95 96 Oxygen Delivery Method Oxygen Flow Rate 06/18/22 05:15 06/18/22 05:15 06/18/22 05:30 Temperature Pulse Rate 62 Respiratory Rate 20 Blood Pressure 107/56 L 105/58 L Pulse Oximetry 95 Oxygen Delivery Method Oxygen Flow Rate 06/18/22 05:30 06/18/22 05:45 06/18/22 05:45 Temperature Pulse Rate 64 64 Respiratory Rate 17 15 Blood Pressure 103/59 L Pulse Oximetry 95 94 Oxygen Delivery Method Oxygen Flow Rate 06/18/22 06:00 06/18/22 06:04 06/18/22 06:04 Temperature Pulse Rate 65 65 Respiratory Rate 15 13 Blood Pressure 110/55 L Pulse Oximetry 96 96 Oxygen Delivery Method Oxygen Flow Rate 2 06/18/22 07:00 06/18/22 07:00 06/18/22 07:15 Temperature Pulse Rate 71 Respiratory Rate 16 Blood Pressure 113/61 119/60 Pulse Oximetry 94 Oxygen Delivery Method Oxygen Flow Rate 06/18/22 07:15 06/18/22 07:30 06/18/22 07:30 Temperature Pulse Rate 71 71 Respiratory Rate 19 10 L Blood Pressure 113/66 Pulse Oximetry 96 97 Oxygen Delivery Method Oxygen Flow Rate Fraction of Inspired Oxygen 36 SaO2/FiO2 Ratio 266 Oxygen Delivery Method Nasal Cannula Oxygen Flow Rate 2 Narrative Exam Narrative: Awake, alert and interactive. VS are WNL with Dopa @ 3. Quality TeleICU VTE Deep Vein Thrombosis/Pulmonary Embolism Present on Admission: No Stress Ulcer Stress ulcer prophylaxis: yes Assessment & Plan Assessment & Plan narrative: 71F with HTN, DM, Hypothyroidism and HFpEF, upgraded to ICU on 06/18 due to bradycardia and hypotension. # Shock - suspect due to bradycardia, possibly septic. Perhaps exacerbated by over diuresis, tenuous given mod-severe # Bradycardia - possibly due to Midodrine, Verapamil. Consider ischemia # Acute UTI, growing Proteus # Aspiration # LYN on CKD # Aortic Stenosis, mod-severe on recent TTE # HFpEF # History of DM2 # History of HTN # History of Hypothyroidism N: SSRI, Gabapentin, Trazodone ongoing. Delirium precautions, frequent reorientation C: Dopa, continue. Targeting MAP >65, HR >50-60 to achieve this MAP. Cardiology consulted. Trend troponins. Repeat EKG if change in status or uptrending troponins. Possible transfer will be needed for pacemaker if persistent garcia cardia/shock. Would attempt to stop Dopa early afternoon (time for other meds to wear off) and see if patient can tolerate. P: Supplemental O2 as needed for sat goal of 92-96%. Aspiration precautions. GI: PPI. Consider swallow eval given aspiration concerns. R: Continue LR @ 50, goal gently positive (500cc) given history. Monitor Cr, lytes. Avoid nephrotoxins H/O: Lovenox PPX. No acute issues ID: Continue Unasyn. Follow up cultures. If worsening shock, would broaden. E: Continue LT4. BG goal is <180, sliding scale insulin Lines: RIJ CVC (placed 06/18) Time Spent With Patient Critical Care time: I spent a total of [35] minutes of critical care time on this patient's care today; this time is exclusive of procedural time.
[2022-06-18] MEDS: prednisoLONE OPHTH SUSP 1 DROPS EYE-LEFT (09:54)
[2022-06-18] MEDS: TIMOLOL 0.5% OPHTH 1 DROPS EYE-LEFT ×2 (10:32→20:47)
--- NOTE | 2022-06-18 11:20 | CM.DPC ---
Addendum entered by CARLOS Steve 06/18/22 15:58: ADD: SW received a call from October at [facility] stating she had reviewed pt and can accept if SNF needed and noticed pt was put on IV Unisen and they could accept this med if needed after d/c. SW met bedside with pt and RN and pt confused at this time and somewhat distrustful and therefore ongoing d/c discussion not had with pt yet as did not want to upset her and she is just getting off the dopamine. RN attempting to contact family with update and pt had friend visiting bedside with her earlier today. PASRR completed in case SNF needed at d/c. Plan: SW to follow for plan of return to [facility] vs [facility] prior to d/c. CARLOS Steve Addendum entered by CARLOS Steve 06/18/22 12:00: ADD: HANNAH received a msg from Maryann at [facility] requesting clinicals to be faxed for review to her fax [phone] to confirm no SNF needed prior to return. HANNAH faxed clinicals to [facility] fax as yesterday clinicals were faxed to RN station at [facility] and updated on coversheet that pt does not appear to need SNF level of care at this time and likely could be ready for d/c by tomorrow. BF Original Note: DCP Return to [facility] Per MD, pt had some bp issues overnight and likely over corrected and now on dopamine but stable and may need to remain admitted another 1-2 days before stable for discharge. HANNAH called Solis RN at [facility] to update on pt and confirm plan for her return as pt's initial medical concern has been addressed by ST moser and recommendations. Plan: SW to follow for plan of pt return to [facility] when medically stable in 1-2 days. SW to follow for return call from [facility] RN to confirm awareness of return. CARLOS Steve
[2022-06-18 11:37] LABS: Creatine Kinase 83 U/L (30-135)
--- NOTE | 2022-06-18 11:41 | DIET.CONS ---
Addendum entered by Katelin Srinivasan 06/18/22 12:04: RD agrees with Facilities Maintenance Engineer assessment below. Original Note: Dietary Consultation Note Admission Date: 06/14/2022 21:07 Assessment: 71 y/o F admitted for chocking event. Referred to nutrition for james score of 15. 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 Met with pt bedside to discuss dietary intake and the need for increased protein. Pt reports no usual breakfast intake - did not eat breakfast (sausage and eggs) this morning. Pt states she drinks strawberry ensure daily at home and prefers plain yogurt. Ht: 162.56 cm Wt: 75.5 kg BMI: 29.3 UBW: Last BM: 06/17/22 (06/17/22 11:54) MNA: 10 James Score: 14 Diet: 06/15/22 Lunch Dysphagia Diet Diet Modifications: *SMALL STRAWS ONLY* cues to take small sips, ADA Liquid consistency: Dysart Consistency Food texture: Regular texture 06/16/22 Breakfast Fluid Restriction Diet Diet Modifications: Total fluid amount: 1,200 Amount allotted to patient trays: 0 Fluid in addition to trays: 6060-4500 amount: 700 [id number] amount: 500 Nutrition Percent Meal Consumed 75% 06/17/22 18:00 Percent Meal Consumed 100% 06/17/22 13:11 Percent Meal Consumed 25% 06/17/22 09:14 Percent Meal Consumed 50% 06/16/22 18:00 Percent Meal Consumed 75% 06/16/22 13:27 Labs: RBC 4.41 X10^6/uL (4.0-5.2) 06/18/22 04:48 Hgb 12.2 g/dL (12.0-16.0) 06/18/22 04:48 Hct 36.9 % (36-46) 06/18/22 04:48 Creatinine 1.47 mg/dL (0.52-1.04) H 06/18/22 04:48 Hemoglobin A1c 5.7 % (4.0-6.0) 06/14/22 18:19 Lactate 1.3 mmol/L (0.7-2.1) 06/18/22 01:24 NT-Pro-B Natriuret Pep 7930 pg/mL (<125) H 06/14/22 18:19 Nutrition Diagnosis: Increased protein needs r/t yinka area excoriation, 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 Interventions: Added ensure (strawberry) 2x/d and the addition of plain yogurt to meal trays. EER: 78 g protein (1 g/kg for wound healing) Monitoring/Evaluations: PNS tolerance, BGs Electronically Signed by: Hailee Cox 06/18/22 11:41 Clinical Dietitian [address] [id number]
[2022-06-18 12:00] LABS: Troponin I 0.805 ng/mL (0.01-0.034)
--- NOTE | 2022-06-18 12:58 | PC.NURSE ---
1230 New result for increased Troponin 0.[address] Sneed. EKG order received and completed by RT. Hospitalist Dr. Max notified of Troponin and shown EKG. No new orders. Notified Dr. Max that Dr. Sneed would like to speak to him about patient. Transfer Center called for an update on patient. Notified of current Troponin and current Dopamine requirement and gave Dr. Max's phone number.
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
--- NOTE | 2022-06-18 13:20 | ST.IPDYTX ---
Visit Care Team Role Provider Type Oscar Angel MD Primary Care Provider Physician Specialty: Internal Medicine Address: [address] [place] [address], [address], [place], [address] Email: [email or web address] Ranjith Snow MD Other Providers Physician Specialty: Medical Address: Phone: Fax: Email: Jerrica Hansen MD Other Providers Physician Specialty: Medical Address: Phone: Fax: Email: Ken Holm MD Other Providers Physician Specialty: Medical Address: [address] [place], [address] Phone: Fax: Email: Shagufta Mason MD Other Providers Physician Specialty: Internal Medicine Address: Phone: Fax: Email: Asif Hwang MD Other Providers Physician Specialty: Medical Address: Phone: Fax: Email: Eloise Sauceda MD Other Providers Physician Specialty: Anesthesiology Internal Medicine Address: [address] [place] [address], [address] Fax: Email: [email or web address] Bharath Martell MD Other Providers Physician Specialty: Internal Medicine Address: [address] [place], [address] Phone: Fax: Email: [email or web address] Márquez MD Other Providers Physician Specialty: Internal Medicine Address: Phone: Fax: Email: Carlos Manuel Bone MD Other Providers Physician Specialty: Medical Address: Phone: Fax: Email: Mike Allen MD Other Providers Physician Specialty: Internal Medicine Address: [address] [place], [address] Phone: Fax: Email: Hernandez Kamara MD Other Providers Physician Specialty: Medical Address: [address], [address] Phone: Fax: Email: Ame Cordova MD Other Providers Physician Specialty: Medical Address: Phone: Fax: Email: Brigida Sneed Other Providers Physician Specialty: Medical Address: Phone: Fax: Email: Renay Munroe MD Other Providers Physician Specialty: Internal Medicine Address: Phone: Fax: Email: Breanna Ware DO Emergency Provider Physician Referring Provider Specialty: Emergency Medicine Address: [address] [place] [address], [address] Email: [email or web address] PATTIE Latham Admit Provider Physician Attending Provider Specialty: Internal Medicine Address: [address] [place] [address], [address] Email: [email or web address] Dysphagia Treatment [employer] Clinical Instructor Line Start: 06/15/22 15:24 Freq: Status: Active Protocol: Document 06/15/22 15:25 MC (Rec: 06/15/22 15:59 [id number]) Clinical Instructor Signature Clinical Instructor Clinical Instructor Yes [employer] Dysphagia Treatment Start: 06/16/22 13:38 Freq: Status: Active Protocol: Document 06/18/22 12:23 CG (Rec: 06/18/22 12:31 CG [id number]) Dysphagia Treatment Session Time Visit Start Time 11:46 Visit Stop Time 12:55 Total Visit Minutes 39 Visit Information Visit Number 3 Setting Assessment Location Acute Care Next Note Type Next Note Type Treatment Note Patient Information Identification Type Name,ID Wristband Subjective Observations Pt was laying asleep in her bed at about 30 degrees recline upon [employer] entry to the room. She remained somnolent throughout initial visit and required tactile and verbal cues to remain awake and follow directions. Treatment Liquids Trialed Maud Solids Trialed Regular Administration Type Tea Spoon Treatment Activities [employer] conducted PO trials of nectar thick liquids via teaspoon and mech soft solids via pt self-feeding and [employer] feeding. Assessment Patient Response to Treatment Fair Rehab Potential Fair Assessment of Improvement Pt was recently transferred from acute care to ICU due to declining cardiac status with pt presenting with bradycardia and meeting criteria for sepsis. Her overall cognitive function appears to have declined secondary to these medical complications. She remains disoriented to time though she is oriented to person and place. Pt does not tolerate repositioning past about 40 degrees incline which keeps her at risk of aspiration even on altered diet/liquids. She remains on nectar thick liquids. Occasional wet vocal quality is present even on nectar thick liquids; recommend pt be encouraged to clear her throat throughout intake. During intake of mech soft solids, pt was observed to be highly impulsive with no rate control, and to attempt to inhale while food was still present in her mouth. [employer] had to take over feeding the pt in order to control bolus size. Pt required max cues to swallow each bite before taking another bite. Recommend mech soft solids due to reduced impulse control and 1:1 supervision for feeding. Recommend positioning the pt as high up as possible for intake and reminding her this is to decrease choking risk. Diet Recommendations Recommendations Downgrade Diet Order Liquids Order Maud Diet Order Mechanical Soft Medication Recommendations Whole in [facility] Additional Dietary Needs 1:1 Supervision Aspiration Precautions Recommended Precautions Small Bites/Sips,Liquids from Spoon Additional Precautions Cues to swallow after each bite Treatment Plan Placement Recommendation after Discharge Assisted Facility Appropriate for Continued Therapy Yes Dysphagia Goals Short Term Goals: The pt will perform safe swallow strategies with oral intake independently to reduce risk of aspiration. Casino Controller Goals: The pt will safely tolerate least restrictive diet meet her nutrition and hydration needs.
[2022-06-18 17:46] LABS: Creatine Kinase 82 U/L (30-135)
[2022-06-18 18:24] LABS: Troponin I 0.873 ng/mL (0.01-0.034)
[2022-06-18] MEDS: ACETAMINOPHEN SUSP 650 MG/20.3 ML UDC 1000 MG PO (20:45)
[2022-06-18] MEDS: ATORVASTATIN 20 MG TABLET PO (20:45)
[2022-06-18] MEDS: GABAPENTIN 300 MG CAPSULE PO (20:45)
--- NOTE | 2022-06-18 20:54 | PM.ICURNDS ---
- Date Patient Seen: 06/18/22 Time Patient Seen: 20:54 :: This patient was seen via real time interactive two-way audiovisual telecommunication. Note: appears comfortable afebrile, HD stable off dopamine since 3pm continue current care
[2022-06-18] MEDS: MELATONIN 3 MG TABLET PO (23:07)
[2022-06-18] MEDS: TRAZODONE 50 MG TABLET PO (23:08)
[2022-06-18 23:52] LABS: Creatine Kinase 81 U/L (30-135)
[2022-06-19] VITALS (23 sets, daily range): BP systolic 112–190; BP diastolic 56–117; PULSE 62–71; RESP 12–54; O2SAT 87–96
[2022-06-19 00:12] LABS: Troponin I 0.869 ng/mL (0.01-0.034)
[2022-06-19] MEDS: AMPICILLIN/SULBACTAM 3 GM 3 GM in SODIUM CHLORIDE 0.9% 100 ML IV ×2 (03:26→11:46)
[2022-06-19] MEDS: LEVOTHYROXINE 137 MCG TABLET PO (06:24)
[2022-06-19] MEDS: PANTOPRAZOLE DR 40 MG TABLET PO (06:24)
[2022-06-19] MEDS: ENOXAPARIN 40 MG/0.4 ML SYRINGE SUBCUT (08:45)
[2022-06-19] MEDS: SERTRALINE 50 MG TABLET 150 MG PO (08:46)
[2022-06-19] MEDS: GABAPENTIN 300 MG CAPSULE PO (08:46)
[2022-06-19] MEDS: prednisoLONE OPHTH SUSP 1 DROPS EYE-LEFT (08:47)
[2022-06-19] MEDS: TIMOLOL 0.5% OPHTH 1 DROPS EYE-LEFT (08:47)
[2022-06-19] MEDS: SODIUM CHLORIDE 0.9% FLUSH 10 ML IV (09:23)
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
--- NOTE | 2022-06-19 10:39 | CM.DPC ---
DCP : Spoke to Solis at [facility], as patient is ready to go back to their facility. He indicated, he did not think that they could accept patient, exceeding their level of care. Asked him if he had known this for a while, or if he had worked on alernative plan, as this is her home, and now, not allowing her back. Called over at [facility], spoke to October, let her know that [facility] is not accepting patient back. She did indicate that she can accept patient, and is aware of [facility] not accepting patient back. Referral had been sent yesterday on patient to [facility] as back up. Left a message for [facility] to call back, on Katie's number, that facility is refusing to accept patient back into her home due to her care needs. Confirmed grape picker time of 1300 for [facility], and hospitalist is working on orders, placed COVID swab as well. PASSR completed, will fax over orders once completed. P: Patient is discharging to [facility] today. Jelly Chester RN/Air Quality Chemist
--- NOTE | 2022-06-19 10:53 | ST.IPDYTX ---
Visit Care Team Role Provider Type Oscar Angel MD Primary Care Provider Physician Specialty: Internal Medicine Address: [address] [place] [address], [address], [place], [address] Email: [email or web address] Ranjith Snow MD Other Providers Physician Specialty: Medical Address: Phone: Fax: Email: Jerrica Hansen MD Other Providers Physician Specialty: Medical Address: Phone: Fax: Email: Ken Holm MD Other Providers Physician Specialty: Medical Address: [address] [place], [address] Phone: Fax: Email: Shagufta Mason MD Other Providers Physician Specialty: Internal Medicine Address: Phone: Fax: Email: Aisf Hwang MD Other Providers Physician Specialty: Medical Address: Phone: Fax: Email: Eloise Sauceda MD Other Providers Physician Specialty: Anesthesiology Internal Medicine Address: [address] [place] [address], [address] Fax: Email: [email or web address] Bharath Martell MD Other Providers Physician Specialty: Internal Medicine Address: [address] [place], [address] Phone: Fax: Email: [email or web address] Venkata Márquez MD Other Providers Physician Specialty: Internal Medicine Address: Phone: Fax: Email: Carlos Manuel Bone MD Other Providers Physician Specialty: Medical Address: Phone: Fax: Email: Mike Allen MD Other Providers Physician Specialty: Internal Medicine Address: [address] [place], [address] Phone: Fax: Email: Hernandez Kamara MD Other Providers Physician Specialty: Medical Address: [address], [address] Phone: Fax: Email: Ame Cordova MD Other Providers Physician Specialty: Medical Address: Phone: Fax: Email: Brigida Sneed Other Providers Physician Specialty: Medical Address: Phone: Fax: Email: Renay Munroe MD Other Providers Physician Specialty: Internal Medicine Address: Phone: Fax: Email: Breanna Ware DO Emergency Provider Physician Referring Provider Specialty: Emergency Medicine Address: [address] [place] [address], [address] Email: [email or web address] [email or web address] Admit Provider Physician Attending Provider Specialty: Internal Medicine Address: [address] [place] [address], [address] Email: [email or web address] JEWELRY MANAGER Dysphagia Treatment JEWELRY MANAGER Clinical Instructor Line Start: 06/15/22 15:24 Freq: Status: Active Protocol: Document 06/15/22 15:25 MC (Rec: 06/15/22 15:59 [id number]) Clinical Instructor Signature Clinical Instructor Clinical Instructor Yes JEWELRY MANAGER Dysphagia Treatment Start: 06/16/22 13:38 Freq: Status: Active Protocol: Document 06/19/22 10:44 ZS (Rec: 06/19/22 10:53 ZS [id number]) Dysphagia Treatment Session Time Visit Start Time 09:30 Visit Stop Time 09:50 Total Visit Minutes 20 Visit Information Visit Number 4 Setting Assessment Location Acute Care Visit Type Note Type Treatment Note Next Note Type Next Note Type Treatment Note Patient Information Identification Type Name,ID Wristband Subjective Observations Pt was seated upright in bed with friend at bedside watching TV when JEWELRY MANAGER arrived. Pt agreed to participate in PO trials with nectar thick liquids and JEWELRY MANAGER turned off TV to reduce environmental distractions. Treatment Liquids Trialed Jessie Administration Type Controlled Cup Sip,Straw,Self- Feeding Treatment Activities Completed PO trials with nectar thick liquids. Pt refused solid trials at this time. Provided education regarding swallow safety, positioning, and bolus size. Assessment Patient Response to Treatment Fair Rehab Potential Fair Assessment of Improvement JEWELRY MANAGER provided nectar thick strawberry ensure via small straw cup sips. Pt does not tolerate repositioning past about 40 degrees incline which keeps her at risk of aspiration even on altered diet/liquids. Pt continues to demonstrate large bolus intake despite verbal cues. JEWELRY MANAGER controlled bolus size by pinching straw and pt was observed to continue attempting to take large boluses with this technique in place. After 4 trials of controlled bolus sizes, pt observed to take 1 sip with small bolus size independently . Occasional wet vocal quality is present even on nectar thick liquids; recommend pt be encouraged to clear her throat throughout intake. Provided education regarding bolus size, aspiration risk, and environmental distractions . Pt expressed understanding though required multiple reminders of this through the session. Continued cognitive impairment negatively impacts swallow safety secondary to impulse control with PO intake . Recommend continued 1:1 assistance with meals to control bolus size and provide verbal reminders to use strategies. Diet Recommendations Recommendations Continue Current Diet Liquids Order Jessie Diet Order Mechanical Soft Medication Recommendations Whole in [place] Comments Assisted Living Facility Additional Dietary Needs 1:1 Supervision Aspiration Precautions Recommended Precautions Small Bites/Sips,Liquids from Spoon Additional Precautions Cues to swallow after each bite Treatment Plan Placement Recommendation after Discharge Retirement Facility Appropriate for Continued Therapy Yes Dysphagia Goals Short Term Goals: The pt will perform safe swallow strategies with oral intake independently to reduce risk of aspiration. Retirement Goals: The pt will safely tolerate least restrictive diet meet her nutrition and hydration needs.
[2022-06-19 11:12] LABS: COVID19 -Nasal RAPID Negative (Negative)
[2022-06-19 11:53] LABS: BUN Creatinine Ratio 17.3 (6-22); Blood Urea Nitrogen 17 mg/dL (7-17); Calcium 8.7 mg/dL (8.4-10.2); Carbon Dioxide 26 mmol/L (22-32); Chloride 107 mmol/L (98-107); Estimated Glomerular Filt Rate > 60 mL/min (>60); Glucose 184 mg/dL (80-110); HEMOLYSIS < 15 (0-50); Potassium 3.7 mmol/L (3.4-5.1); Sodium 142 mmol/L (137-145)
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
== END 2022-06-19 13:08 | DRG 177 ==
LOC: ED 20:26 → AC 21:08 → ICU 06-18 01:00
PROVIDERS: Emergency Medicine; Internal Medicine; Student in an Organized Health Care Education/Training Program; Admitting Provider Nurse Practitioner Family; Emergency Provider Emergency Medicine; PCP Student in an Organized Health Care Education/Training Program; Referring Provider Emergency Medicine; Visit Provider Nurse Practitioner Family
DX: J69.0 Pneumonitis due to inhalation of food and vomit (principal); I50.31 Acute diastolic (congestive) heart failure; J96.01 Acute respiratory failure with hypoxia; R57.1 Hypovolemic shock; R57.0 Cardiogenic shock; I13.0 Hypertensive heart and chronic kidney disease with heart failure and stage 1 through stage 4 chronic kidney disease, or unspecified chronic kidney disease; N39.0 Urinary tract infection, site not specified; I5A Non-ischemic myocardial injury (non-traumatic); N17.9 Acute kidney failure, unspecified; E11.22 Type 2 diabetes mellitus with diabetic chronic kidney disease; E03.9 Hypothyroidism, unspecified; H53.2 Diplopia; F31.9 Bipolar disorder, unspecified; G89.4 Chronic pain syndrome; I35.0 Nonrheumatic aortic (valve) stenosis; B96.4 Proteus (mirabilis) (morganii) as the cause of diseases classified elsewhere; N18.30 Chronic kidney disease, stage 3 unspecified; Z87.891 Personal history of nicotine dependence; Z20.822 Contact with and (suspected) exposure to COVID-19
CPT/HCPCS: 36415; 36592; 36600; 71045; 80048; 80053; 81001; 82550; 82805; 82962; 83036; 83605; 83690; 83735; 83880; 84145; 84439; 84443; 84484; 85025; 85610; 85730; 87040; 87077; 87086; 87186; 87635; 87797; 92507; 92526; 92610; 93005; 93010; 93306; 94762; 97162; 99285; 99291; 99292; C9803; J0295; J0696; J1650; J1815; J1940; J3475

== ENCOUNTER → 2022-08-15 12:05 | Outpatient (ROUT) | payer MEDICARE, MEDICAID, SELFPAY ==
[2022-06-14 21:29] VITALS: BMI 29.3
[2022-08-15 12:16] LABS: Appearance Urine UA CLOUDY; Bilirubin Urine UA NEGATIVE (NEGATIVE); Color Urine UA YELLOW; Glucose Urine UA NEGATIVE (Negative); Ketones Urine UA NEGATIVE (NEGATIVE); Leukocyte Esterase Urine UA 3+ (NEGATIVE); Nitrite Urine UA NEGATIVE (Negative); Occult Blood Urine UA 2+ (Negative); Protein Urine UA 2+ (Negative); Urobilinogen Urine UA 0.2 E.U./dL (0.2)
[2022-08-15 12:18] LABS: pH Urine UA 7.5 (4.5-8.0)
[2022-08-15 12:23] LABS: Amorphous Sediment Urine 3+; Bacteria Urine Many (>30); Culture Indicated Urine Specimen Cultured; RBC Urine 30-100/HPF (0-5/HPF); Squamous Epithelial Cell Urine 1-5 /HPF (0-5/HPF); Triple Phosphate Crystal Urine Occasional; WBC Urine >100/HPF (0-5/HPF)
== END ==
PROVIDERS: PCP Student in an Organized Health Care Education/Training Program; Visit Provider Internal Medicine
DX: R41.82 Altered mental status, unspecified (principal)
CPT/HCPCS: 81001; 87077; 87086; 87186

== ENCOUNTER 2022-09-12 15:32 | Emergency (ER) | payer MEDICARE, MEDICAID, SELFPAY ==
[2022-06-14 21:29] VITALS: BMI 29.3
[2022-09-12] VITALS (21 sets, daily range): BP systolic 143–214; BP diastolic 70–95; PULSE 65–73; RESP 14–21; TEMP 36.7; O2SAT 93–98; BMI 31.5
--- NOTE | 2022-09-12 15:40 | DI.RAD.S_ITS ---
PROCEDURE: XR CHEST 1V INDICATIONS: trauma TECHNIQUE: One view of the chest was acquired. COMPARISON: [facility], CR, XR CHEST 1V, 06/18/2022, 3:22. [facility], CR, XR CHEST 1V, 06/18/2022, 1:37. FINDINGS: Lungs and pleura: Lung volumes are low. Redemonstrated interstitial opacities present bilaterally. No large pleural effusion or pneumothorax. Mediastinum: Cardiac silhouette is enlarged Bones and chest wall: No suspicious bony lesions. Overlying soft tissues appear unremarkable. IMPRESSION: 1. Bilateral interstitial opacities present as before, could be related to interstitial lung disease, senescent change, viral or atypical infection, or interstitial edema. 2. Cardiac silhouette is enlarged, may be accentuated by low lung volumes. Dictated by: Jeremy Tristan M.D. on 09/12/2022 at 16:38 Approved by: Jeremy Tristan M.D. on 09/12/2022 at 16:40
--- NOTE | 2022-09-12 15:40 | DI.RAD.S_ITS ---
PROCEDURE: XR PELVIS 1-2V INDICATIONS: trauma TECHNIQUE: 1 view(s) of the pelvis acquired. COMPARISON: [facility], CR, XR HIP W PEL IF DONE RT 2V, 11/08/2018, 19:27. FINDINGS: Bones: No fractures or dislocations. No suspicious bony lesions. Soft tissues: Visualized bowel gas pattern is normal. IMPRESSION: No acute fracture identified. If symptoms persist, follow-up radiographs and/or CT or MRI may be helpful for further evaluation. Dictated by: Jeremy Tristan M.D. on 09/12/2022 at 16:41 Approved by: Jeremy Tristan M.D. on 09/12/2022 at 16:42
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
--- NOTE | 2022-09-12 15:41 | DI.CT.S_ITS ---
PROCEDURE: CT CERVICAL SPINE WO CON INDICATIONS: Trauma TECHNIQUE: Noncontrast 3 mm thick sections acquired from the skull base to the T4 level. Sagittal and coronal reformats were then constructed. For radiation dose reduction, the following was used: automated exposure control, adjustment of mA and/or kV according to patient size. COMPARISON: MR, C-SPINE WITHOUT CONTRAST, 11/12/2013, 12:49. FINDINGS: Image quality: Excellent. Bones: No fractures or dislocations. Visualized superior ribs are intact. Multilevel degenerative changes are present. Soft tissues: Prevertebral soft tissues are normal in thickness. No paravertebral hematomas. No apical pneumothoraces. IMPRESSION: No visualized fracture. Multilevel degenerative changes are present. Dictated by: Brittanie Arceo M.D. on 09/12/2022 at 16:32 Approved by: Brittanie Arceo M.D. on 09/12/2022 at 16:33
--- NOTE | 2022-09-12 15:41 | DI.CT.S_ITS ---
PROCEDURE: CT HEAD/BRAIN WO CON INDICATIONS: Trauma TECHNIQUE: Noncontrast 4.5 mm thick angled axial sections acquired from the foramen magnum to the vertex, with coronal and sagittal reformats. For radiation dose reduction, the following was used: automated exposure control, adjustment of mA and/or kV according to patient size. COMPARISON: [facility], CT, HEAD WITHOUT CONTRAST, 12/27/2015, 14:10. FINDINGS: Image quality: Excellent. CSF spaces: Basal cisterns are patent. No extra-axial fluid collections. The ventricles demonstrate mild prominence in relation to gyral and sulcal atrophy slightly more so when compared to 2016. Brain: No intracranial bleeds or masses. There is cerebral volume loss for age, with resultant ventricular and sulcal prominence. There are periventricular and deep white matter chronic small vessel ischemic changes. There is intracranial internal carotid artery atherosclerosis. Skull and face: Calvarium and visualized facial bones appear intact, without suspicious lesions. Right facial/periorbital soft tissue edema. Sinuses: Visualized sinuses and mastoids are clear. IMPRESSION: 1. No acute intracranial process. Right facial/periorbital soft tissue edema. 2. Moderate atrophy and chronic microvascular ischemic changes. 3. Mild ventricular prominence, disproportion to gyral and sulcal atrophy. This may represent a central atrophy pattern. However, recommend clinical correlation to symptoms as normal pressure hydrocephalus cannot be excluded. Dictated by: Brittanie Arceo M.D. on 09/12/2022 at 16:18 Approved by: Brittanie Arceo M.D. on 09/12/2022 at 16:19
--- NOTE | 2022-09-12 15:42 | DI.CT.S_ITS ---
PROCEDURE: CT FACIAL BONES WO CON INDICATIONS: Fall. Face injury. TECHNIQUE: Noncontrast 2.5 mm thick axial images acquired from the mandible through the frontal sinuses, with coronal and sagittal reformatting. For radiation dose reduction, the following was used: automated exposure control, adjustment of mA and/or kV according to patient size. COMPARISON: [facility], CT, ORBITS WITH CONTRAST, 05/22/2014, 18:50. [facility], CT, HEAD WITHOUT CONTRAST, 12/27/2015, 14:10. [facility], CT, CT HEAD/BRAIN WO CON, 09/12/2022, 15:47. FINDINGS: Image quality: Excellent. Bones and teeth: Orbital null are intact. Sinus null show no fracture or deformity. Nasal bones and septum are intact. Visualized portions of the mandible demonstrate no fractures or subluxation. Zygomatic arches are intact. Pterygoid plates are intact. Visualized portions of the skull base and auditory canals are intact. Sinuses: Scattered areas of minimal mucosal thickening without fluid levels are identified, most notable in the left sphenoid sinus. Mastoid air cells are aerated. Soft tissues: Prominent right frontal/periorbital soft tissue hematoma. Vascular: Visualized vascular structures appear normal in the absence of contrast. Bony vascular foramina and canals are intact. IMPRESSION: No visualized fracture. Prominent right facial/periorbital soft tissue hematoma. Dictated by: Brittanie Arceo M.D. on 09/12/2022 at 16:12 Approved by: Brittanie rAceo M.D. on 09/12/2022 at 16:17
[2022-09-12 16:01] LABS: INR 1.1 (0.9-1.3); Prothrombin Time 12.4 SECONDS (10.1-12.7)
[2022-09-12 16:03] LABS: Add Manual Diff / Slide Review NO; Basophils Absolute Auto 100 /uL (0-100); Basophils Percent Auto 1.2 % (0-2); Eosinophils Absolute Auto 200 /uL (0-450); Eosinophils Percent Auto 2.4 % (2-4); Hematocrit 38.4 % (36-46); Lymphocytes Absolute Auto 3200 /uL (1100-4500); Lymphocytes Percent Auto 35.3 % (25-40); Mean Corpuscular HGB Conc 33.9 % (30-36); Mean Corpuscular Hemoglobin 28.1 PG (26-34); Mean Corpuscular Volume 82.8 fL (80-100); Monocytes Absolute Auto 700 /uL (0-900); Monocytes Percent Auto 8.1 % (3-14); Neutrophils Absolute Auto 4800 /uL (1500-7000); Platelet Count 235 X10^3/uL (150-400); Red Blood Cell Count 4.64 X10^6/uL (4.0-5.2); Red Cell Distribution Width 14.6 % (11.6-14.8)
[2022-09-12 16:04] LABS: PTT Partial Thromboplastin Tim 31 SECONDS (26-36)
[2022-09-12 16:05] LABS: Lactate (Lactic Acid) 1.2 mmol/L (0.7-2.1)
[2022-09-12 16:07] LABS: Alanine Aminotransferase 25 IU/L (<35); Albumin 3.5 g/dL (3.5-5.0); Alkaline Phosphatase 159 U/L (38-126); Aspartate Aminotransferase 36 IU/L (14-36); BUN Creatinine Ratio 17.5 (6-22); Blood Urea Nitrogen 20 mg/dL (7-17); Calcium 8.7 mg/dL (8.4-10.2); Carbon Dioxide 27 mmol/L (22-32); Chloride 107 mmol/L (98-107); Creatine Kinase 67 U/L (30-135); Estimated Glomerular Filt Rate 51 mL/min (>60); Ethanol (ETOH) < 10 mg/dL; Globulin 3.6 g/dL (1.7-4.1); Glucose 70 mg/dL (80-110); HEMOLYSIS < 15 (0-50); Sodium 141 mmol/L (137-145); Total Protein 7.1 g/dL (6.3-8.2)
[2022-09-12 16:15] LABS: Lipase 2816 U/L (23-300)
--- NOTE | 2022-09-12 16:44 | PC.NURSE ---
BG 70, pt given packet of sugar to increase blood glucose. Physician and charge aware.
--- NOTE | 2022-09-12 16:48 | PC.NURSE ---
Once xrays/ct were cleared, pt was sat up to drink 8oz apple juice to improve blood glucose level, physician verbal order.
[2022-09-12] MEDS: TET,DIPH,PERTUSS(ACELL),VAC/PF 0.5 ML SYRINGE IM (16:54)
== END 2022-09-12 19:13 | disposition home or self-care (01) ==
PROVIDERS: Emergency Provider Emergency Medicine; PCP Student in an Organized Health Care Education/Training Program
DX: S00.83XA Contusion of other part of head, initial encounter (principal); R29.6 Repeated falls; R10.2 Pelvic and perineal pain; W18.30XA Fall on same level, unspecified, initial encounter; Z23 Encounter for immunization
CPT/HCPCS: 70450; 70486; 71045; 72125; 72170; 80053; 80320; 82550; 82962; 83605; 83690; 84484; 85025; 85610; 85730; 90471; 93005; 99284; 90715

== ENCOUNTER 2022-09-20 15:28 | Inpatient (IN) | payer MEDICARE, MEDICAID, SELFPAY ==
[2022-06-14 21:29] VITALS: BMI 29.3
[2022-09-20] VITALS (26 sets, daily range): BP systolic 80–118; BP diastolic 44–68; PULSE 72–85; RESP 16–39; TEMP 36–37.4; O2SAT 88–97; BMI 27.3
--- NOTE | 2022-09-20 15:36 | DI.RAD.S_ITS ---
PROCEDURE: XR CHEST 1V INDICATIONS: suspected sepsis TECHNIQUE: One view of the chest was acquired. COMPARISON: [facility], CR, XR CHEST 1V, 09/12/2022, 15:44. [facility], CR, XR CHEST 1V, 06/18/2022, 3:22. FINDINGS: Surgical changes and devices: None. Lungs and pleura: Increased pulmonary markings. Peribronchial cuffing. No consolidation. Mediastinum: Mediastinal contours appear normal. Heart size is normal. Bones and chest wall: No suspicious bony lesions. Overlying soft tissues appear unremarkable. IMPRESSION: Mild pulmonary edema. Dictated by: Ras Winter M.D. on 09/20/2022 at 16:18 Approved by: Ras Winter M.D. on 09/20/2022 at 16:18
[2022-09-20] MEDS: ACETAMINOPHEN 325 MG TABLET 650 MG PO (15:50)
[2022-09-20 16:08] LABS: Hematocrit 35.2 % (36-46); Hemoglobin 12.1 g/dL (12.0-16.0); Mean Corpuscular HGB Conc 34.3 % (30-36); Mean Corpuscular Hemoglobin 28.5 PG (26-34); Mean Corpuscular Volume 83.1 fL (80-100); Platelet Count 101 X10^3/uL (150-400); Red Blood Cell Count 4.24 X10^6/uL (4.0-5.2); Red Cell Distribution Width 16.2 % (11.6-14.8); White Blood Cell Count 6.3 X10^3/uL (4.5-11.0)
[2022-09-20 16:10] LABS: Add Manual Diff / Slide Review YES
[2022-09-20] MEDS: SODIUM CHLORIDE 0.9% 1,000 ML 1000 ML IV (16:10)
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
[2022-09-20 16:19] LABS: INR 1.3 (0.9-1.3); Prothrombin Time 15.1 SECONDS (10.1-12.7)
[2022-09-20] MEDS: cefTRIAXone 2,000 MG in SODIUM CHLORIDE 0.9% 100 ML 200 MG IV (16:20)
[2022-09-20 16:22] LABS: PTT Partial Thromboplastin Tim 30 SECONDS (26-36)
[2022-09-20 16:26] LABS: Alanine Aminotransferase 33 IU/L (<35); Albumin 2.8 g/dL (3.5-5.0); Albumin Globulin Ratio 0.8 (1.0-2.8); Alkaline Phosphatase 174 U/L (38-126); Aspartate Aminotransferase 35 IU/L (14-36); BUN Creatinine Ratio 17.6 (6-22); Bilirubin Total 2.7 mg/dL (0.2-1.3); Blood Urea Nitrogen 82 mg/dL (7-17); Calcium 7.8 mg/dL (8.4-10.2); Carbon Dioxide 21 mmol/L (22-32); Chloride 105 mmol/L (98-107); Estimated Glomerular Filt Rate 9 mL/min (>60); Globulin 3.4 g/dL (1.7-4.1); Glucose 130 mg/dL (80-110); HEMOLYSIS < 15 (0-50); Lipase 113 U/L (23-300); Potassium 4.1 mmol/L (3.4-5.1); Sodium 138 mmol/L (137-145); Total Protein 6.2 g/dL (6.3-8.2)
[2022-09-20 16:27] LABS: Lactate (Lactic Acid) 1.4 mmol/L (0.7-2.1)
[2022-09-20 16:31] LABS: Neutrophils Absolute Manual 4221 /uL (3000-5900); Total Cells Counted 100
[2022-09-20 16:32] LABS: Anisocytosis 1+
[2022-09-20 16:42] LABS: Procalcitonin 42.8 ng/mL (<0.5)
[2022-09-20 16:54] LABS: COVID19 -Nasal RAPID Negative (Negative)
[2022-09-20] MEDS: DOXYCYCLINE 100 MG in SODIUM CHLORIDE 0.9% 100 ML IV (18:02)
--- NOTE | 2022-09-20 18:22 | DI.ECHO.S_ITS ---
[facility]---------+ [facility] +---------+ : : [address] [place] : : : : [id number] : : : : Phone: [phone] Echocardiogram Report + + :Name: JONATHAN LOZANO Study Date: 09/21/2022 Height: 62 in : :[facility] ReadingLocation: Weight: 164 lb : : Gender: Female BSA: 1.8 m2 : :: 1950 Age: 72 yrs BP: 107/53 mmHg: :Reason For Study: ASSESS FOR CONGESTIVE HEART FAILURE, AORTIC : :STENOSIS : :Ordering Physician: TERESITA, : :ABBY Warner Performed By: RANDA ALLEN : :Referring: ABBY LO : + + Interpretation Summary The ejection fraction is estimated to be 55-60%. The aortic valve is not well visualized. The aortic valve mean gradient is 30 mmHg. The calculated aortic valve area is .80 cm2. There has been no significant change since the previous study. There is severe aortic stenosis. Procedure: A two-dimensional transthoracic echocardiogram with color flow and Doppler was performed in limited views only. The study quality was technically adequate. Comparison is made with the echocardiogram of 06/15/2022. The patient was in normal sinus rhythm during the exam. Left Ventricle: There is mild-moderate concentric left ventricular hypertrophy. The ejection fraction is estimated to be 55-60%. Left ventricular wall motion is normal. Right Ventricle: The right ventricular systolic function is normal. Aortic Valve: The aortic valve is severely calcified. The aortic valve is not well visualized. The aortic valve area indexed to the BSA is 0.46 . The peak aortic velocity is 3.4 m/sec. The aortic valve mean gradient is 30 mmHg. The calculated aortic valve area is .80 cm2. There has been no significant change since the previous study. There is severe aortic stenosis. There is mild aortic regurgitation. MMode/2D Measurements & Calculations LVIDd: 3.5 cm LVOT diam: 1.8 cm LVIDs: 2.7 cm FS: 23.9 % IVSd: 1.0 cm LVPWd: 1.5 cm LV marcos. diameter/BSA (cm/m^2): 2.0 LV sys. diameter/BSA (cm/m^2): 1.5 IVC diam: 1.8 cm Doppler Measurements & Calculations Ao V2 max: 335.3 cm/sec LVOT Max [place]: 103.3 cm/sec Ao V2 mean: 263.7 cm/sec LV V1 max P.3 mmHg Ao max P.0 mmHg LV V1 VTI: 24.6 cm Ao mean P.6 mmHg LIBRA(I,D): 0.80 cm2 Ao V2 VTI: 78.3 cm LIBRA(V,D): 0.79 cm2 sev ratio: 0.31 LIBRA indexed to BSA (cm^2/m^2): 0.46 SV(LVOT): 62.8 ml Reading Physician:11:46 AM
[2022-09-20 18:27] LABS: Magnesium 2.2 mg/dL (1.6-2.3)
[2022-09-20 18:53] LABS: NT-proBNP (BNP-Adult 18+) 39300 pg/mL (<125)
[2022-09-20 18:59] LABS: TSH w/ Reflex to FT4 0.75 uIU/mL (0.47-4.68)
[2022-09-20 19:29] LABS: Adenovirus Not Detected (Not Detect); B. parapertussis Not Detected (Not Detecte); Bordetella pertussis Not Detected (Not Detecte); Chlamydophila pneumoniae Not Detected (Not Detect); Coronavirus 229E Not Detected (Not Detect); Coronavirus HKU1 Not Detected (Not Detect); Coronavirus NL 63 Not Detected (Not Detect); Coronavirus OC43 Not Detected (Not Detect); Human Metapneumovirus Not Detected (Not Detect); Human Rhinovirus/Enterovirus Not Detected (Not Detect); Influenza A Not Detected (Not Detect); Influenza B Not Detected (Not Detect); Mycoplasma pneumoniae Not Detected (Not Detect); Parainfluenza Virus 1 Not Detected (Not Detect); Parainfluenza Virus 2 Not Detected (Not Detect); Parainfluenza Virus 3 Not Detected (Not Detect); Parainfluenza Virus 4 Not Detected (Not Detect); Respiratory Syncytial Virus Not Detected (Not Detect); SARS- CoV-2 Not Detected (Not Detecte)
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
[2022-09-20 21:01] LABS: Cholesterol 75 mg/dL (140-199); HDL Cholesterol 11 mg/dL (40-60); LDL Cholesterol Calculated 20 mg/dL (<100); Triglycerides 219 mg/dL (35-150)
[2022-09-20 22:31] LABS: Creatinine Urine Random 154.3 mg/dL; Sodium Urine Random 24 mmol/L (30-90)
--- NOTE | 2022-09-20 22:37 | PC.NURSE ---
Pt. transferred to ICU & report given to Marisela PAZ.
--- NOTE | 2022-09-20 22:51 | DI.CT.S_ITS ---
PROCEDURE: CT HEAD/BRAIN WO CON INDICATIONS: Fall w/ facial ecchymoses TECHNIQUE: Noncontrast 4.5 mm thick angled axial sections acquired from the foramen magnum to the vertex, with coronal and sagittal reformats. For radiation dose reduction, the following was used: automated exposure control, adjustment of mA and/or kV according to patient size. COMPARISON: [facility], CT, CT HEAD/BRAIN WO CON, 09/12/2022, 15:47. FINDINGS: Image quality: Excellent. CSF spaces: Basal cisterns are patent. No extra-axial fluid collections. There is moderate cerebral volume loss, with resultant ventricular and sulcal prominence. Brain: No intracranial hemorrhage, mass, or mass effect. There are subcortical, periventricular and deep white matter hypodensities consistent with moderate chronic small vessel ischemic changes. The abel-white matter junction appears preserved. There is intracranial internal carotid artery atherosclerosis. Skull and face: Calvarium and visualized facial bones appear intact, without suspicious lesions. Sinuses: Visualized sinuses and mastoids are clear. IMPRESSION: 1. No acute intracranial abnormality. 2. Moderate cerebral volume loss and chronic white matter small vessel ischemic changes. Dictated by: Klaus Edwards M.D. on 09/21/2022 at 1:06 Approved by: Klaus Edwards M.D. on 09/21/2022 at 1:10
--- NOTE | 2022-09-20 22:55 | DI.CT.S_ITS ---
PROCEDURE: CT CHEST ABD PEL WO CON INDICATIONS: sepsis TECHNIQUE: After the administration of oral contrast, 5 mm thick sections acquired from the lung apices to the symphysis pubis. 5 mm thick coronal and sagittal reformats acquired, with additional 7 mm coronal MIP reformats through the lungs. For radiation dose reduction, the following was used: automated exposure control, adjustment of mA and/or kV according to patient size. COMPARISON: [facility], CT, ABDOMEN/PELVIS WITH CONTRAST, 12/27/2015, 20:24. FINDINGS: Image quality: There is motion artifact and beam hardening artifact limiting evaluation. CHEST: Lower Neck: No lymphadenopathy by size criteria. Thyroid: Visualized thyroid demonstrates no discrete nodules. Axillae: No lymphadenopathy by size criteria. Chest Wall: Unremarkable. Lungs and Airways: There are multiple clustered irregular nodules throughout the right lung with areas of confluent consolidation in the right lung base and perihilar regions. A few patchy areas of consolidation are also demonstrated within the left lower lobe. The findings are consistent with multifocal pneumonia. The trachea and central airways are patent. Pleura: No pneumothorax or pleural effusions. Heart: Heart size is normal. No pericardial effusion. Thoracic Vessels: The aorta and pulmonary arteries are normal in size. Mediastinum and Shonna: No lymphadenopathy by size criteria. There is a right internal jugular catheter with the tip in the superior vena cava. Esophagus: No wall thickening. No hiatal hernia. ABDOMEN: Liver: No mass lesion. Gallbladder: Surgically absent.. Biliary ducts: No biliary ductal dilatation. Pancreas: Unremarkable. Spleen: Normal in size. Adrenal Glands: No adrenal nodules. Kidneys and Ureters: There is an obstructing stone within the distal right ureter measuring 0.8 cm with attenuation values of approximately 400-500 Hounsfield units. There is corresponding moderate right hydroureteronephrosis with perinephric and periureteral fat stranding. On the left, there is a nonobstructing stone measuring up to 1.2 cm with attenuation values of 200-300 Hounsfield units. No left hydronephrosis. Stomach and Bowel: Stomach, small bowel loops, and colon are normal in caliber and wall thickness. No pericecal inflammatory changes to suggest appendicitis. Peritoneum: No abnormal intraperitoneal fluid. No free air. Ventral Wall: No hernia. Abdominal Nodes: No retroperitoneal or mesenteric adenopathy by size criteria. Vessels: Aorta and inferior vena cava are normal in size. PELVIS: Pelvic Organs: There is a right ovarian cyst measuring up to 1.8 cm.. Bladder: There is a Tolentino catheter within a partially distended urinary bladder. Pelvic Nodes: No enlarged lymph nodes. Miscellaneous: No inguinal hernias are seen. Bones: Visualized osseous structures demonstrate no suspicious focal lesions. IMPRESSION: 1. Multiple clustered irregular nodules in the right lung with areas of confluent consolidation predominantly in the lung bases. Mild patchy consolidation also demonstrated in the left lung base. The findings most likely represent multifocal pneumonia. 2. Obstructing distal right ureteral stone with associated moderate right hydroureteronephrosis. 3. Additional nonobstructing bilateral renal stones as described. Dictated by: Klaus Edwards M.D. on 09/21/2022 at 1:14 Approved by: Klaus Edwards M.D. on 09/21/2022 at 1:34
--- NOTE | 2022-09-20 22:56 | DI.CT.S_ITS ---
PROCEDURE: CT CERVICAL SPINE WO CON INDICATIONS: FAll w/ right neck ecchymoses TECHNIQUE: Noncontrast 3 mm thick sections acquired from the skull base to the T4 level. Sagittal and coronal reformats were then constructed. For radiation dose reduction, the following was used: automated exposure control, adjustment of mA and/or kV according to patient size. COMPARISON: [facility], CT, CT CERVICAL SPINE WO CON, 09/12/2022, 15:47. FINDINGS: Image quality: Excellent. Bones: No fractures or subluxation. There is straightening of the cervical lordosis. Multilevel degenerative disc disease and facet joint arthropathy are demonstrated. There is mild superior endplate scalloping of the T2 vertebral body which appears unchanged. Visualized superior ribs are intact. Soft tissues: Prevertebral soft tissues are normal in thickness. No paravertebral hematomas. No apical pneumothoraces. The visualized lungs demonstrate multiple new patchy nodular opacities within the right lung. IMPRESSION: 1. No acute fracture or subluxation. 2. Multiple new patchy nodular opacities within the right lung likely represent pneumonia given the change compared to the recent prior study. Dictated by: Klaus Edwards M.D. on 09/21/2022 at 1:10 Approved by: Klaus Edwards M.D. on 09/21/2022 at 1:14
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
[2022-09-20] MEDS: AMPICILLIN/SULBACTAM 3 GM 3 GM in SODIUM CHLORIDE 0.9% 100 ML IV (23:26)
[2022-09-20 23:37] LABS: Creatine Kinase 107 U/L (30-135)
--- NOTE | 2022-09-20 23:55 | DI.RAD.S_ITS ---
PROCEDURE: XR CHEST 1V INDICATIONS: Central line placement TECHNIQUE: One view of the chest was acquired. COMPARISON: [facility], CR, XR CHEST 1V, 09/20/2022, 15:46. FINDINGS: Surgical changes and devices: There is a new right internal jugular catheter with the tip in the region of the cavoatrial junction. Lungs and pleura: No evidence of pneumothorax. No pleural effusions. There is increased pulmonary vascular prominence consistent with pulmonary edema. Mediastinum: Mediastinal contours appear unchanged. Heart size is normal. Bones and chest wall: No suspicious bony lesions. Overlying soft tissues appear unremarkable. IMPRESSION: 1. No evidence of pneumothorax. 2. Increased pulmonary vascular prominence consistent with pulmonary edema. Dictated by: Klaus Edwards M.D. on 09/21/2022 at 0:24 Approved by: Klaus Edwards M.D. on 09/21/2022 at 0:25
[2022-09-20 23:57] LABS: MRSA (Nasal) PCR Not Detected (Not Detect)
[2022-09-21] VITALS (52 sets, daily range): BP systolic 80–136; BP diastolic 48–66; PULSE 77–96; RESP 14–34; TEMP 36.6–37.1; O2SAT 91–94
[2022-09-21] MEDS: NOREPINEPHRINE BITARTRATE/D5W 4 MG/250 ML PLAST..BAG 22.5 MG IV
--- NOTE | 2022-09-21 00:23 | PM.PROC.1 ---
Procedures Date/Time Date of procedure: 09/20/22 Time of procedure: 23:50 Central Line Placement Time out performed: Yes Patient placed on monitor/pulse ox: Yes MD prep: mask, gown and gloves Central line prep: Chlorhexidine scrub and sterile drapes applied Local anesthesia used: lidocaine 1% Amount of anesthesia used (ml): 3 Ultrasound used for placement: Yes Central line lumen inserted: triple Post procedure: sutured in place, good blood return, all ports aspirated, flushed, capped and sterile dressing applied Post procedure x-ray: tip of catheter in good position and no pneumothorax seen Patient tolerated procedure: well and no complications Complications: none
[2022-09-21] MEDS: LACTATED RINGERS 1,000 ML 100 ML IV (01:02)
--- NOTE | 2022-09-21 01:19 | PC.NURSE ---
Addendum entered by Marisela Puckett R.N. 09/21/22 06:04: 0500- levophed gtt off. UOP 225 since 2200hr. Patient is lethargic but will respond to her name. Will monitor. Original Note: 09/20/22 2200hr- Patient transferred from room 205 via bed to ICU room 226. Patient verbalizing appropriately. Baseline vitals obtained and patient placed on the senior qa engineer. Tolentino catheter placed without any difficulty and urine sent to lab per order. EICU consulted by hospitalist LALO Salinas. 2300hr- Dr Rangel consulted discussion of plan of care. Orders received. Dr. Callahan consulted for central line placement. Line completed by 0000hr. Verified for use via xray. Levophed started per order. Once a stable BP obtained patient transported to CT Scan per order. Will monitor.
--- NOTE | 2022-09-21 02:04 | PC.NURSE ---
Addendum entered by Marisela Puckett R.N. 09/21/22 02:14: Buttock wound dressing applied Original Note:
--- NOTE | 2022-09-21 02:10 | PC.NURSE ---
Addendum entered by Marisela Puckett R.N. 09/21/22 02:13: Right facial injury Original Note:
--- NOTE | 2022-09-21 02:11 | PC.NURSE ---
Addendum entered by Marisela Puckett R.N. 09/21/22 02:12: Left heel Original Note:
--- NOTE | 2022-09-21 03:26 | PM.EVENT ---
Event Note Event Note (Rapid Response, Code, or fall): CT abdomen/pelvis showed obstructing distal UPJ stone w/ moderate R hydronephrosis. Started on levopohed 4 mcg. Switch abx to zosyn and linezolid. D/w ALAN Pinky Salinas to reach out to surgery for ureteral stent vs nephrostomy tube placement for source control.
[2022-09-21] MEDS: LINEZOLID 600 MG/300 ML IV.SOLN IV (04:01)
[2022-09-21] MEDS: PIPERACILLIN/TAZO 3.375 GM in SODIUM CHLORIDE 0.9% 100 ML IV (04:03)
[2022-09-21 04:11] LABS: Acinetobacter calcoa-baumannii Not Detected (Not Detect); Bacteroides fragilis Not Detected (Not Detect); CTX-M Resistance Not Detected (Not Detect); Enterobacter cloacae complex Not Detected (Not Detect); Enterobacterales DETECTED (Not Detect); Enterococcus faecalis Not Detected (Not Detect); Enterococcus faecium Not Detected (Not Detect); IMP Resistance Not Detected (Not Detect); KPC Resistance Not Detected (Not Detect); Listeria monocytogenes Not Detected (Not Detect); NDM Resistance Not Detected (Not Detect); OXA-48-like Resistance Not Detected (Not Detect); Staphylococcus epidermidis Not Detected (Not Detect); Staphylococcus lugdunensis Not Detected (Not Detect); Staphylococcus species Not Detected (Not Detect); Streptococcus agalactiae (Gr B Not Detected (Not Detect); Streptococcus pneumonia Not Detected (Not Detect); Streptococcus pyogenes (Gr A) Not Detected (Not Detect); Streptococcus species Not Detected (Not Detect); VIM Resistance Not Detected (Not Detect); mcr-1 Resistance Not Detected (Not Detect)
[2022-09-21 04:12] LABS: Candida albicans Not Detected (Not Detect); Candida auris Not Detected (Not Detect); Candida glabrata Not Detected (Not Detect); Candida krusei Not Detected (Not Detect); Candida parapsilosis Not Detected (Not Detect); Candida tropicalis Not Detected (Not Detect); Cryptococcus neoformans/gatti Not Detected (Not Detect); Haemophilus influenzae Not Detected (Not Detect); Klebsiella aerogenes Not Detected (Not Detect); Neisseria meningitidis Not Detected (Not Detect); Proteus species Not Detected (Not Detect); Pseudomonas aeruginosa Not Detected (Not Detect); Salmonella species Not Detected (Not Detect); Serratia marcescens Not Detected (Not Detect); Stenotrophomonas maltophilia Not Detected (Not Detect)
[2022-09-21 05:38] LABS: BUN Creatinine Ratio 19.8 (6-22); Blood Urea Nitrogen 80 mg/dL (7-17); Calcium 7.1 mg/dL (8.4-10.2); Carbon Dioxide 22 mmol/L (22-32); Chloride 105 mmol/L (98-107); Estimated Glomerular Filt Rate 11 mL/min (>60); Glucose 179 mg/dL (80-110); HEMOLYSIS 33 (0-50); Lactate (Lactic Acid) 1.3 mmol/L (0.7-2.1); Potassium 4.1 mmol/L (3.4-5.1); Sodium 139 mmol/L (137-145)
[2022-09-21] MEDS: AMPICILLIN/SULBACTAM 3 GM 3 GM in SODIUM CHLORIDE 0.9% 100 ML IV (05:43)
[2022-09-21 05:55] LABS: Procalcitonin 26.3 ng/mL (<0.5)
[2022-09-21 05:56] LABS: Hemoglobin 10.7 g/dL (12.0-16.0); Mean Corpuscular HGB Conc 34.6 % (30-36); Mean Corpuscular Hemoglobin 28.7 PG (26-34); Platelet Count 86 X10^3/uL (150-400); Red Blood Cell Count 3.73 X10^6/uL (4.0-5.2); Red Cell Distribution Width 15.8 % (11.6-14.8)
[2022-09-21 06:23] LABS: Add Manual Diff / Slide Review YES
[2022-09-21 06:59] LABS: Anisocytosis 1+; Burr Cells 2+; Neutrophils Absolute Manual 5680 /uL (3000-5900); Total Cells Counted 100
--- NOTE | 2022-09-21 07:04 | DI.RAD.S_ITS ---
PROCEDURE: XR CALCANEOUS LT MIN 2V INDICATIONS: possible ulceration TECHNIQUE: Two views of the calcaneus were acquired. COMPARISON: None. FINDINGS: Bones: No fractures or dislocations. No suspicious bony lesions. Plantar calcaneal spur is seen. No evidence of osteomyelitis. Soft tissues: No suspicious calcifications. Achilles tendon appears normal. No soft tissue gas. IMPRESSION: No acute abnormality of the calcaneus. No evidence of osteomyelitis. Dictated by: Roland Brock M.D. on 09/21/2022 at 9:00 Approved by: Roland Brock M.D. on 09/21/2022 at 9:04
--- NOTE | 2022-09-21 07:45 | PM.PN.1 ---
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 1000 mg daily and gabapentin 300 mg p.o. t.i.d..? Code status: DNR/DNI with limited interventions Surrogate decision maker: Glynn STANFORD PCR: Negative Diet: Mechanical soft diet with nectar thick liquids per speech evaluation on hospitalization 06/18/2022 DVT/VTE prophylaxis: Heparin and SCDs Disposition: Patient escalated to admit the ICU for sepsis with encephalopathy acute respiratory failure hypotension and acute renal failure expected length of stay greater than 2 midnights. I have utilized all available immediate resources to obtain, update, or review the patient's current medications. I confirmed that the patient's advanced care plan is present, Code status is documented and/or surrogate decision maker is listed in the patient's medical record. I have personally reviewed patient's chart notes from PCP, specialists, diagnostic imaging, and laboratory results. Quality VTE Deep Vein Thrombosis/Pulmonary Embolism Present on Admission: No
--- NOTE | 2022-09-21 09:09 | CM.DANOTE ---
Addendum entered by Jelly Chester R.N. 09/21/22 11:20: Discussed patient during team rounds. There is a possibility that patient could be transferred out secondary to having a urinary obstruction, may have a bed available. Hospitalist will discuss further with son. Original Note: DCP: Case received, EMR reviewed and met with patient. Introduced self and role. Was able to obtain information regarding patient's level of care from [employer] at [facility]. DCP assessment completed with information currently available. Patient is a 72 year old female who admitted yesterday afternoon to the care of the hospitalist team. PCP: Dr. Angel. Payer: confirmed: Medicare/Medicaid. Patient came to the hospital via ambulance secondary to fever and shortness of breath. Notes indicate that patient was here about 8 days ago in the ER, secondary to falling out of her wheelchair. Notes also indicated that patient's DPOA is Glynn Coronado, at: [phone]. Hospitalist has contacted. He confirmed that patient should be a no code with select treatments. Patient had indicated to nursing staff does not want to be intubated. Patient diagnosed with sepsis without shock, hypovolemia with encephalopathy, hypotension, acute renal failure. Patient also noted to have pulmonary edema. Notes also mention goals of care, but this can be discussed with hospitalist today. There is an amended note that mentions possible transfer? Called over at [facility] and spoke to [employer]. Confirmed that patient resides in [facility], is mostly wheelchair bound, two person transfer, also uses a hoier/sit to stand if needed. She is assist with ADL, showers. Asked her if patient is alert and oriented at baseline, she indicated, she normally is, but has been more confused lately. P: DCP to follow closely, and will discuss further in team rounds regarding next steps. Patient currently not medically stable. Patient has been to [facility] before, is an option, other option is back to [facility]. Jelly Chester RN/Hosiery Repairer Discharge Planning/Care Management CM Discharge Assessment Start: 09/21/22 09:05 Freq: Status: Active Protocol: Document 09/21/22 09:06 (Rec: 09/21/22 09:09 [id number]) Discharge Planning Assessment Assigned Reconnaissance Man Jelly Henrik, RN/Hosiery Repairer Advance Directives? Yes: POL Advance Directives on File Yes History Provided By Patient,Medical Record Prior Living Arrangements Assisted Living Household Members other Type of transporation used prior to Relies on Others admit Facility Name Admitted From: [facility] Independent with ADL's No Is patient alert and oriented? Yes Needs Assistance With Bathing,Grooming,Meal Prep, Toileting,Managing Medications ,Home Chores / Shopping Caregiver for Another No DME Already Rented / Owned Wheelchair,FWW / Walker,Other Comment Patient also has hoier/sit to stand at her facility Patient/Family Preference Senior Care Facility Comment It is uncertain if patient will need skilled, and if goals of care are discussed with POA. Comment Need communication with [facility] and with patient's DPOA (delmy Maki?) Discharge Plan Assisted Living Facility Transportation Arrangement Faciity Referrals Initiated Other Additional Comment Will discuss further in team rounds. If needed, patient has been to [facility] before. Review Status In Process Next Review Type Continued Stay Review
--- NOTE | 2022-09-21 10:27 | OT.IPNOTE ---
Pt not medically appropriate at this time, hold OT eval.
--- NOTE | 2022-09-21 11:06 | PT-IP ANOTE ---
Per discussion with MD, will hold PT eval until after plan of care discussed with patient/family.
--- NOTE | 2022-09-21 11:07 | P.TELICUPN_ITS ---
Subjective Subjective IF CAMERA ACTIVATED, patient seen via real-time interactive audiovisual communication: Camera activated Consent obtained for tele-community product specialist care: Yes Patient Location: ICU Provider location (State): [place] Other participants/roles: RN Interval history: pt weaned off levophed this AM, pending tx, her cx returned as e- coli, sensitivies are pending, but pt will be de-escalated foem zyvox Current Medications Current Medications Medications: Home Medications aspirin 81 mg tablet,delayed release 81 mg PO DAILY #90 tabs 09/14/22 [Rx Confirmed 09/20/22] atorvastatin 20 mg tablet 20 mg PO BEDTIME #90 tabs 09/14/22 [Rx Confirmed 09/20/22] cholecalciferol (vitamin D3) 50 mcg (2,000 unit) tablet (Vitamin D3) 2,000 unit PO QDAY #90 tabs 09/14/22 [Rx Confirmed 09/20/22] gabapentin 300 mg capsule 300 mg PO TID #270 caps 09/14/22 [Rx Confirmed 09/20/22] loperamide 2 mg capsule 2 mg PO PRN PRN loose stool #50 caps 09/14/22 [Rx Confirmed 09/20/22] omeprazole 20 mg capsule,delayed release 20 mg PO DAILY #90 caps 09/14/22 [Rx Confirmed 09/20/22] sertraline 100 mg tablet 150 mg PO QDAY #135 tabs 09/14/22 [Rx Confirmed 09/20/22] trazodone 100 mg tablet 100 mg PO HS #90 tabs 09/14/22 [Rx Confirmed 09/20/22] valacyclovir 500 mg tablet 500 mg PO DAILY #90 tabs 09/14/22 [Rx Confirmed 09/20/22] acetaminophen 500 mg tablet 1,000 mg PO BEDTIME #180 tabs 09/18/22 [Rx Confirmed 09/20/22] levothyroxine 125 mcg tablet 125 mcg PO DAILY 09/20/22 [History Confirmed 04/04] Visit Medications (administered) Generic Name Dose Route Start Last Admin Trade Name Freq PRN Reason Stop Dose Admin Aspirin 81 mg 09/21/22 09:00 09/21/22 09:59 Aspirin Ec 81 Mg Tablet PO Not Given DAILY ELENI Atorvastatin Calcium 20 mg 09/20/22 21:00 09/20/22 23:03 Atorvastatin 20 Mg Tablet PO Not Given BEDTIME ELENI Doxycycline Hyclate 100 mg 09/21/22 09:00 09/21/22 09:59 Doxycycline Hyclate 100 Mg Tablet PO 09/25/22 20:59 Not Given BID [facility] NOREPINEPHRINE BITARTRATE/D5W 4 mg in 250 mls @ 30 mls/hr 09/20/22 22:58 09/21/22 05:09 Levophed IV 0 mcg/min TITRATE ELENI 0 mls/hr Titration Protocol 8 MCG/MIN Lactated Ringer's 1,000 mls @ 100 mls/hr 09/20/22 23:15 09/21/22 01:02 Lactated Ringers IV 100 mls/hr CONT ELENI Administration Piperacillin Sod/Tazobactam 100 mls @ 25 mls/hr 09/21/22 03:30 09/21/22 04:03 Sod 3.375 gm/ Sodium Chloride IV 25 mls/hr Q12H ELENI Administration Insulin Human Lispro 0 unit 09/20/22 21:00 09/21/22 08:06 Insulin Lispro 100 Unit/Ml 3ml Vial SUBCUT Not Given ACHS [facility] Protocol Levothyroxine Sodium 125 mcg 09/21/22 06:00 09/21/22 06:02 Levothyroxine 50 Mcg Tablet PO Not Given 0600 [facility] Pantoprazole Sodium 20 mg 09/21/22 06:00 09/21/22 06:[address] 20 Mg Tablet PO Not Given 0600 [facility] Objective Labs 09/21/22 05:40 09/21/22 04:45 Labs: Laboratory Results - last 24 hr 09/20/22 09/20/22 09/20/22 15:40 15:40 15:40 WBC 6.3 RBC 4.24 Hgb 12.1 Hct 35.2 L MCV 83.1 MCH 28.5 MCHC 34.3 RDW 16.2 H Plt Count 101 L Neut % (Auto) Not Reportable Lymph % (Auto) Not Reportable [place] % (Auto) Not Reportable Eos % (Auto) Not Reportable Baso % (Auto) Not Reportable Lymph # (Auto) Not Reportable [place] # (Auto) Not Reportable Baso # (Auto) Not Reportable Total Counted 100 Seg Neutrophils % 66.0 Band Neutrophils % 1.0 L Lymphocytes % (Manual) 19.0 L Monocytes % (Manual) 11.0 Eosinophils % (Manual) 3.0 Neutrophils # (Manual) 4221 RBC Morphology See below Anisocytosis 1+ H Karon Cells PT 15.1 H INR 1.3 APTT 30 Sodium 138 Potassium 4.1 Chloride 105 Carbon Dioxide 21 L BUN 82 H Creatinine 4.66 H Estimated GFR 9 L BUN/Creatinine Ratio 17.6 Glucose 130 H Lactate Calcium 7.8 L Magnesium Total Bilirubin 2.7 H AST 35 ALT 33 Alkaline Phosphatase 174 H Total Creatine Kinase NT-Pro-B Natriuret Pep Total Protein 6.2 L Albumin 2.8 L Globulin 3.4 Albumin/Globulin Ratio 0.8 L Triglycerides Cholesterol LDL Cholesterol, Calc HDL Cholesterol Lipase 113 D Procalcitonin 42.8 H TSH Ur Random Sodium Urine Creatinine Nasal Screen MRSA (PCR) A.calcoaceticus-baumannii cmplx PCR Chlamy pneumoniae PCR Adenovirus (PCR) Bacteroides fragilis B. pertussis DNA (PCR) B.parapertussis DNA PCR Brandee albicans (PCR) Brandee auris (PCR) C. glabrata (PCR) C. krusei (PCR) C. parapsilosis (PCR) C. tropicalis (PCR) Coronavirus OC43 (PCR) Coronavirus HKU1 (PCR) Coronavirus 229E (PCR) SARS-CoV-2 (PCR) Coronavirus NL63 (PCR) C. neoform/gattii (PCR) Enterobacterales (PCR) E. cloacae complex PCR Enterococc faecalis PCR Enterococc faecium PCR E. coli (PCR) H. influenzae (PCR) Human Metapneumovir PCR Influenza Type A (PCR) Influenza Type B (PCR) Klebsiella aerogenes (PCR) Klebsiella oxytoca PCR Klebsiella pneumoniae List. monocytogenes PCR M. pneumoniae (PCR) N. meningitidis (PCR) Parainfluenza 1 (PCR) Parainfluenza 2 (PCR) Parainfluenza 3 (PCR) Parainfluenza 4 (PCR) Proteus species (PCR) RSV (PCR) Entero/Rhino (PCR) Salmonella spp. (PCR) Serratia marcescens PCR Staphylococcus sp PCR Staph aureus (PCR) mcr-1 Colistin Res Gene PCR Staph epidermidis (PCR) Staph lugdunensis PCR S. maltophilia (PCR) Streptococcus sp PCR Group A Strep (PCR) Strep agalactiae (PCR) Strep pneumoniae (PCR) P. aeruginosa (PCR) blaIMP Car res Gene PCR KPC-Carbap Res Gene PCR blaNDM Car Res Gene PCR OXA-48 Carbapenem Resis Gene (PCR) blaVIM Car Res Gene PCR CTX-M Gene Resistance (PCR) 09/20/22 09/20/22 09/20/22 15:40 15:40 15:40 WBC RBC Hgb Hct MCV MCH MCHC RDW Plt Count Neut % (Auto) Lymph % (Auto) [place] % (Auto) Eos % (Auto) Baso % (Auto) Lymph # (Auto) [place] # (Auto) Baso # (Auto) Total Counted Seg Neutrophils % Band Neutrophils % Lymphocytes % (Manual) Monocytes % (Manual) Eosinophils % (Manual) Neutrophils # (Manual) RBC Morphology Anisocytosis Karon Cells PT INR APTT Sodium Potassium Chloride Carbon Dioxide BUN Creatinine Estimated GFR BUN/Creatinine Ratio Glucose Lactate 1.4 Calcium Magnesium 2.2 Total Bilirubin AST ALT Alkaline Phosphatase Total Creatine Kinase NT-Pro-B Natriuret Pep 74103 H Total Protein Albumin Globulin Albumin/Globulin Ratio Triglycerides Cholesterol LDL Cholesterol, Calc HDL Cholesterol Lipase Procalcitonin TSH Ur Random Sodium Urine Creatinine Nasal Screen MRSA (PCR) A.calcoaceticus-baumannii cmplx PCR Chlamy pneumoniae PCR Adenovirus (PCR) Bacteroides fragilis B. pertussis DNA (PCR) B.parapertussis DNA PCR Brandee albicans (PCR) Brandee auris (PCR) C. glabrata (PCR) C. krusei (PCR) C. parapsilosis (PCR) C. tropicalis (PCR) Coronavirus OC43 (PCR) Coronavirus HKU1 (PCR) Coronavirus 229E (PCR) SARS-CoV-2 (PCR) Coronavirus NL63 (PCR) C. neoform/gattii (PCR) Enterobacterales (PCR) E. cloacae complex PCR Enterococc faecalis PCR Enterococc faecium PCR E. coli (PCR) H. influenzae (PCR) Human Metapneumovir PCR Influenza Type A (PCR) Influenza Type B (PCR) Klebsiella aerogenes (PCR) Klebsiella oxytoca PCR Klebsiella pneumoniae List. monocytogenes PCR M. pneumoniae (PCR) N. meningitidis (PCR) Parainfluenza 1 (PCR) Parainfluenza 2 (PCR) Parainfluenza 3 (PCR) Parainfluenza 4 (PCR) Proteus species (PCR) RSV (PCR) Entero/Rhino (PCR) Salmonella spp. (PCR) Serratia marcescens PCR Staphylococcus sp PCR Staph aureus (PCR) mcr-1 Colistin Res Gene PCR Staph epidermidis (PCR) Staph lugdunensis PCR S. maltophilia (PCR) Streptococcus sp PCR Group A Strep (PCR) Strep agalactiae (PCR) Strep pneumoniae (PCR) P. aeruginosa (PCR) blaIMP Car res Gene PCR KPC-Carbap Res Gene PCR blaNDM Car Res Gene PCR OXA-48 Carbapenem Resis Gene (PCR) blaVIM Car Res Gene PCR CTX-M Gene Resistance (PCR) 09/20/22 09/20/22 09/20/22 15:40 15:40 16:27 WBC RBC Hgb Hct MCV MCH MCHC RDW Plt Count Neut % (Auto) Lymph % (Auto) [place] % (Auto) Eos % (Auto) Baso % (Auto) Lymph # (Auto) [place] # (Auto) Baso # (Auto) Total Counted Seg Neutrophils % Band Neutrophils % Lymphocytes % (Manual) Monocytes % (Manual) Eosinophils % (Manual) Neutrophils # (Manual) RBC Morphology Anisocytosis Karon Cells PT INR APTT Sodium Potassium Chloride Carbon Dioxide BUN Creatinine Estimated GFR BUN/Creatinine Ratio Glucose Lactate Calcium Magnesium Total Bilirubin AST ALT Alkaline Phosphatase Total Creatine Kinase NT-Pro-B Natriuret Pep Total Protein Albumin Globulin Albumin/Globulin Ratio Triglycerides 219 H Cholesterol 75 L LDL Cholesterol, Calc 20 HDL Cholesterol 11 L Lipase Procalcitonin TSH 0.75 Ur Random Sodium Urine Creatinine Nasal Screen MRSA (PCR) A.calcoaceticus-baumannii cmplx PCR Chlamy pneumoniae PCR Adenovirus (PCR) Bacteroides fragilis B. pertussis DNA (PCR) B.parapertussis DNA PCR Brandee albicans (PCR) Brandee auris (PCR) C. glabrata (PCR) C. krusei (PCR) C. parapsilosis (PCR) C. tropicalis (PCR) Coronavirus OC43 (PCR) Coronavirus HKU1 (PCR) Coronavirus 229E (PCR) SARS-CoV-2 (PCR) Negative Coronavirus NL63 (PCR) C. neoform/gattii (PCR) Enterobacterales (PCR) E. cloacae complex PCR Enterococc faecalis PCR Enterococc faecium PCR E. coli (PCR) H. influenzae (PCR) Human Metapneumovir PCR Influenza Type A (PCR) Influenza Type B (PCR) Klebsiella aerogenes (PCR) Klebsiella oxytoca PCR Klebsiella pneumoniae List. monocytogenes PCR M. pneumoniae (PCR) N. meningitidis (PCR) Parainfluenza 1 (PCR) Parainfluenza 2 (PCR) Parainfluenza 3 (PCR) Parainfluenza 4 (PCR) Proteus species (PCR) RSV (PCR) Entero/Rhino (PCR) Salmonella spp. (PCR) Serratia marcescens PCR Staphylococcus sp PCR Staph aureus (PCR) mcr-1 Colistin Res Gene PCR Staph epidermidis (PCR) Staph lugdunensis PCR S. maltophilia (PCR) Streptococcus sp PCR Group A Strep (PCR) Strep agalactiae (PCR) Strep pneumoniae (PCR) P. aeruginosa (PCR) blaIMP Car res Gene PCR KPC-Carbap Res Gene PCR blaNDM Car Res Gene PCR OXA-48 Carbapenem Resis Gene (PCR) blaVIM Car Res Gene PCR CTX-M Gene Resistance (PCR) 09/20/22 09/20/22 09/20/22 18:13 22:15 22:17 WBC RBC Hgb Hct MCV MCH MCHC RDW Plt Count Neut % (Auto) Lymph % (Auto) [place] % (Auto) Eos % (Auto) Baso % (Auto) Lymph # (Auto) [place] # (Auto) Baso # (Auto) Total Counted Seg Neutrophils % Band Neutrophils % Lymphocytes % (Manual) Monocytes % (Manual) Eosinophils % (Manual) Neutrophils # (Manual) RBC Morphology Anisocytosis Karon Cells PT INR APTT Sodium Potassium Chloride Carbon Dioxide BUN Creatinine Estimated GFR BUN/Creatinine Ratio Glucose Lactate Calcium Magnesium Total Bilirubin AST ALT Alkaline Phosphatase Total Creatine Kinase NT-Pro-B Natriuret Pep Total Protein Albumin Globulin Albumin/Globulin Ratio Triglycerides Cholesterol LDL Cholesterol, Calc HDL Cholesterol Lipase Procalcitonin TSH Ur Random Sodium 24 L Urine Creatinine 154.3 Nasal Screen MRSA (PCR) Not detected A.calcoaceticus-baumannii cmplx PCR Chlamy pneumoniae PCR Not detected Adenovirus (PCR) Not detected Bacteroides fragilis B. pertussis DNA (PCR) Not detected B.parapertussis DNA PCR Not detected Brandee albicans (PCR) Brandee auris (PCR) C. glabrata (PCR) C. krusei (PCR) C. parapsilosis (PCR) C. tropicalis (PCR) Coronavirus OC43 (PCR) Not detected Coronavirus HKU1 (PCR) Not detected Coronavirus 229E (PCR) Not detected SARS-CoV-2 (PCR) Not detected Coronavirus NL63 (PCR) Not detected C. neoform/gattii (PCR) Enterobacterales (PCR) E. cloacae complex PCR Enterococc faecalis PCR Enterococc faecium PCR E. coli (PCR) H. influenzae (PCR) Human Metapneumovir PCR Not detected Influenza Type A (PCR) Not detected Influenza Type B (PCR) Not detected Klebsiella aerogenes (PCR) Klebsiella oxytoca PCR Klebsiella pneumoniae List. monocytogenes PCR M. pneumoniae (PCR) Not detected N. meningitidis (PCR) Parainfluenza 1 (PCR) Not detected Parainfluenza 2 (PCR) Not detected Parainfluenza 3 (PCR) Not detected Parainfluenza 4 (PCR) Not detected Proteus species (PCR) RSV (PCR) Not detected Entero/Rhino (PCR) Not detected Salmonella spp. (PCR) Serratia marcescens PCR Staphylococcus sp PCR Staph aureus (PCR) mcr-1 Colistin Res Gene PCR Staph epidermidis (PCR) Staph lugdunensis PCR S. maltophilia (PCR) Streptococcus sp PCR Group A Strep (PCR) Strep agalactiae (PCR) Strep pneumoniae (PCR) P. aeruginosa (PCR) blaIMP Car res Gene PCR KPC-Carbap Res Gene PCR blaNDM Car Res Gene PCR OXA-48 Carbapenem Resis Gene (PCR) blaVIM Car Res Gene PCR CTX-M Gene Resistance (PCR) 09/20/22 09/21/22 09/21/22 23:18 02:32 04:45 WBC RBC Hgb Hct MCV MCH MCHC RDW Plt Count Neut % (Auto) Lymph % (Auto) [place] % (Auto) Eos % (Auto) Baso % (Auto) Lymph # (Auto) [place] # (Auto) Baso # (Auto) Total Counted Seg Neutrophils % Band Neutrophils % Lymphocytes % (Manual) Monocytes % (Manual) Eosinophils % (Manual) Neutrophils # (Manual) RBC Morphology Anisocytosis Elbe Cells PT INR APTT Sodium 139 Potassium 4.1 Chloride 105 Carbon Dioxide 22 BUN 80 H Creatinine 4.05 H Estimated GFR 11 L BUN/Creatinine Ratio 19.8 Glucose 179 H Lactate Calcium 7.1 L Magnesium Total Bilirubin AST ALT Alkaline Phosphatase Total Creatine Kinase 107 NT-Pro-B Natriuret Pep Total Protein Albumin Globulin Albumin/Globulin Ratio Triglycerides Cholesterol LDL Cholesterol, Calc HDL Cholesterol Lipase Procalcitonin 26.3 H TSH Ur Random Sodium Urine Creatinine Nasal Screen MRSA (PCR) A.calcoaceticus-baumannii cmplx PCR Not detected Chlamy pneumoniae PCR Adenovirus (PCR) Bacteroides fragilis Not detected B. pertussis DNA (PCR) B.parapertussis DNA PCR Brandee albicans (PCR) Not detected Brandee auris (PCR) Not detected C. glabrata (PCR) Not detected C. krusei (PCR) Not detected C. parapsilosis (PCR) Not detected C. tropicalis (PCR) Not detected Coronavirus OC43 (PCR) Coronavirus HKU1 (PCR) Coronavirus 229E (PCR) SARS-CoV-2 (PCR) Coronavirus NL63 (PCR) C. neoform/gattii (PCR) Not detected Enterobacterales (PCR) Detected H E. cloacae complex PCR Not detected Enterococc faecalis PCR Not detected Enterococc faecium PCR Not detected E. coli (PCR) Detected H H. influenzae (PCR) Not detected Human Metapneumovir PCR Influenza Type A (PCR) Influenza Type B (PCR) Klebsiella aerogenes (PCR) Not detected Klebsiella oxytoca PCR Not detected Klebsiella pneumoniae Not detected List. monocytogenes PCR Not detected M. pneumoniae (PCR) N. meningitidis (PCR) Not detected Parainfluenza 1 (PCR) Parainfluenza 2 (PCR) Parainfluenza 3 (PCR) Parainfluenza 4 (PCR) Proteus species (PCR) Not detected RSV (PCR) Entero/Rhino (PCR) Salmonella spp. (PCR) Not detected Serratia marcescens PCR Not detected Staphylococcus sp PCR Not detected Staph aureus (PCR) Not detected mcr-1 Colistin Res Gene PCR Not detected Staph epidermidis (PCR) Not detected Staph lugdunensis PCR Not detected S. maltophilia (PCR) Not detected Streptococcus sp PCR Not detected Group A Strep (PCR) Not detected Strep agalactiae (PCR) Not detected Strep pneumoniae (PCR) Not detected P. aeruginosa (PCR) Not detected blaIMP Car res Gene PCR Not detected KPC-Carbap Res Gene PCR Not detected blaNDM Car Res Gene PCR Not detected OXA-48 Carbapenem Resis Gene (PCR) Not detected blaVIM Car Res Gene PCR Not detected CTX-M Gene Resistance (PCR) Not detected 09/21/22 09/21/22 04:45 05:40 WBC 8.0 RBC 3.73 L Hgb 10.7 L Hct 31.0 L MCV 83.0 MCH 28.7 MCHC 34.6 RDW 15.8 H Plt Count 86 L Neut % (Auto) Not Reportable Lymph % (Auto) Not Reportable [place] % (Auto) Not Reportable Eos % (Auto) Not Reportable Baso % (Auto) Not Reportable Lymph # (Auto) Not Reportable [place] # (Auto) Not Reportable Baso # (Auto) Not Reportable Total Counted 100 Seg Neutrophils % 71.0 H Band Neutrophils % Lymphocytes % (Manual) 19.0 L Monocytes % (Manual) 9.0 Eosinophils % (Manual) 1.0 L Neutrophils # (Manual) 5680 RBC Morphology See below Anisocytosis 1+ H Karon Cells 2+ H PT INR APTT Sodium Potassium Chloride Carbon Dioxide BUN Creatinine Estimated GFR BUN/Creatinine Ratio Glucose Lactate 1.3 Calcium Magnesium Total Bilirubin AST ALT Alkaline Phosphatase Total Creatine Kinase NT-Pro-B Natriuret Pep Total Protein Albumin Globulin Albumin/Globulin Ratio Triglycerides Cholesterol LDL Cholesterol, Calc HDL Cholesterol Lipase Procalcitonin TSH Ur Random Sodium Urine Creatinine Nasal Screen MRSA (PCR) A.calcoaceticus-baumannii cmplx PCR Chlamy pneumoniae PCR Adenovirus (PCR) Bacteroides fragilis B. pertussis DNA (PCR) B.parapertussis DNA PCR Brandee albicans (PCR) Brandee auris (PCR) C. glabrata (PCR) C. krusei (PCR) C. parapsilosis (PCR) C. tropicalis (PCR) Coronavirus OC43 (PCR) Coronavirus HKU1 (PCR) Coronavirus 229E (PCR) SARS-CoV-2 (PCR) Coronavirus NL63 (PCR) C. neoform/gattii (PCR) Enterobacterales (PCR) E. cloacae complex PCR Enterococc faecalis PCR Enterococc faecium PCR E. coli (PCR) H. influenzae (PCR) Human Metapneumovir PCR Influenza Type A (PCR) Influenza Type B (PCR) Klebsiella aerogenes (PCR) Klebsiella oxytoca PCR Klebsiella pneumoniae List. monocytogenes PCR M. pneumoniae (PCR) N. meningitidis (PCR) Parainfluenza 1 (PCR) Parainfluenza 2 (PCR) Parainfluenza 3 (PCR) Parainfluenza 4 (PCR) Proteus species (PCR) RSV (PCR) Entero/Rhino (PCR) Salmonella spp. (PCR) Serratia marcescens PCR Staphylococcus sp PCR Staph aureus (PCR) mcr-1 Colistin Res Gene PCR Staph epidermidis (PCR) Staph lugdunensis PCR S. maltophilia (PCR) Streptococcus sp PCR Group A Strep (PCR) Strep agalactiae (PCR) Strep pneumoniae (PCR) P. aeruginosa (PCR) blaIMP Car res Gene PCR KPC-Carbap Res Gene PCR blaNDM Car Res Gene PCR OXA-48 Carbapenem Resis Gene (PCR) blaVIM Car Res Gene PCR CTX-M Gene Resistance (PCR) Exam Vital Signs (past 8 hours): - 09/21/22 03:15 09/21/22 03:15 09/21/22 03:30 Temperature Pulse Rate 93 H 94 H Respiratory Rate 19 19 Blood Pressure 108/54 L Pulse Oximetry 92 93 Oxygen Delivery Method Oxygen Flow Rate 09/21/22 03:33 09/21/22 03:33 09/21/22 03:37 Temperature Pulse Rate 96 H 96 H Respiratory Rate 19 20 Blood Pressure 111/56 L Pulse Oximetry 92 93 Oxygen Delivery Method Oxygen Flow Rate 09/21/22 03:37 09/21/22 03:41 09/21/22 03:41 Temperature Pulse Rate 94 H Respiratory Rate 19 Blood Pressure 136/65 121/58 L Pulse Oximetry 93 Oxygen Delivery Method Oxygen Flow Rate 09/21/22 03:45 09/21/22 03:45 09/21/22 04:00 Temperature Pulse Rate 93 H Respiratory Rate 19 Blood Pressure 115/55 L 114/60 Pulse Oximetry 93 Oxygen Delivery Method Oxygen Flow Rate 09/21/22 04:00 09/21/22 04:15 09/21/22 04:15 Temperature 98.8 F Pulse Rate 92 H 93 H Respiratory Rate 19 19 Blood Pressure 110/59 L Pulse Oximetry 93 94 Oxygen Delivery Method Oxygen Flow Rate 09/21/22 04:30 09/21/22 04:30 09/21/22 04:45 Temperature Pulse Rate 92 H 93 H Respiratory Rate 19 19 Blood Pressure 107/53 L Pulse Oximetry 93 94 Oxygen Delivery Method Oxygen Flow Rate 09/21/22 04:45 09/21/22 05:00 09/21/22 05:00 Temperature Pulse Rate 93 H Respiratory Rate 17 Blood Pressure 128/61 123/60 Pulse Oximetry 93 Oxygen Delivery Method Oxygen Flow Rate 3 09/21/22 04:00 09/21/22 05:15 09/21/22 05:15 Temperature Pulse Rate 93 H Respiratory Rate 18 Blood Pressure 114/56 L Pulse Oximetry 93 Oxygen Delivery Method Nasal Cannula Oxygen Flow Rate 09/21/22 05:30 09/21/22 05:30 09/21/22 05:45 Temperature Pulse Rate 92 H Respiratory Rate 19 Blood Pressure 113/56 L 112/58 L Pulse Oximetry 93 Oxygen Delivery Method Oxygen Flow Rate 09/21/22 05:45 09/21/22 06:00 09/21/22 06:00 Temperature Pulse Rate 92 H 91 H Respiratory Rate 18 18 Blood Pressure 112/55 L Pulse Oximetry 93 93 Oxygen Delivery Method Oxygen Flow Rate 3 09/21/22 06:15 09/21/22 06:15 09/21/22 06:30 Temperature Pulse Rate 87 Respiratory Rate 18 Blood Pressure 103/54 L 103/55 L Pulse Oximetry 94 Oxygen Delivery Method Oxygen Flow Rate 09/21/22 06:30 09/21/22 06:45 09/21/22 06:45 Temperature Pulse Rate 86 86 Respiratory Rate 18 17 Blood Pressure 104/56 L Pulse Oximetry 93 93 Oxygen Delivery Method Oxygen Flow Rate 09/21/22 07:00 09/21/22 07:00 09/21/22 07:15 Temperature Pulse Rate 87 86 Respiratory Rate 18 17 Blood Pressure 105/59 L Pulse Oximetry 93 93 Oxygen Delivery Method Oxygen Flow Rate 09/21/22 07:15 09/21/22 08:00 09/21/22 07:30 Temperature Pulse Rate Respiratory Rate Blood Pressure 101/57 L 125/62 Pulse Oximetry Oxygen Delivery Method Nasal Cannula Oxygen Flow Rate 09/21/22 07:30 09/21/22 07:45 09/21/22 07:45 Temperature Pulse Rate 90 85 Respiratory Rate 18 17 Blood Pressure 109/56 L Pulse Oximetry 93 93 Oxygen Delivery Method Oxygen Flow Rate 09/21/22 08:00 09/21/22 08:00 09/21/22 08:15 Temperature Pulse Rate 83 83 Respiratory Rate 17 17 Blood Pressure 85/48 L Pulse Oximetry 93 93 Oxygen Delivery Method Oxygen Flow Rate 09/21/22 08:15 09/21/22 08:30 09/21/22 08:30 Temperature Pulse Rate 85 Respiratory Rate 16 Blood Pressure 96/52 L 113/54 L Pulse Oximetry 93 Oxygen Delivery Method Oxygen Flow Rate 09/21/22 08:45 09/21/22 08:45 09/21/22 09:00 Temperature Pulse Rate 86 Respiratory Rate 16 Blood Pressure 104/55 L 91/66 Pulse Oximetry 93 Oxygen Delivery Method Oxygen Flow Rate 09/21/22 09:00 09/21/22 09:15 09/21/22 09:15 Temperature 98.8 F Pulse Rate 85 84 Respiratory Rate 23 16 Blood Pressure 100/54 L Pulse Oximetry 92 92 Oxygen Delivery Method Oxygen Flow Rate Oxygen Delivery Method Nasal Cannula Oxygen Flow Rate 3 Narrative Exam Narrative: surrogate for full exam is primary team Const Other: ill appearing remains encephalopathic Resp Other: symmetric chest rise Cardio Other: rate controlled Quality TeleICU VTE Deep Vein Thrombosis/Pulmonary Embolism Present on Admission: No Assessment & Plan Assessment & Plan narrative: NEURO: # Traumatic falls -- Unclear etiology. Possible related to sepsis and polypharmacy. -- DC gabapentin -- remains encephalopthic - likely due to sepsis RESP: # Acute hypoxemia respiratory failure -- Secondary to sepsis w/ acute lung injury and ? pulmonary edema -- On 3 liters NC -- Sepsis rx as below -- HOB elevation -- Aspiration precaution -- Goal SPO2 > 90% -- Follow up TTE CVS: # Distributive shock -- Secondary to sepsis -- weanedd off vasopressors -- continue to monitor # Hx of HFpEF -- Check TTE -- Strict I/O -- Low Na diet : # LYN on CKD -- Secondary to sepsis and dehydration -- Start gentle hydration -- Avoid nephrotoxin agents -- Daily BMP -- pending trasnfer, but urology will be in house on saturday if bed not available or if risk of trasnfer is high ID: # Septic shock -- Check urine and blood cx -- Follow up CT imaging -- On zosyn ENDO: -- Goal BS < 180 -- Recommend ISS and accucheck D/w Dr. Jyoti Talley and RN total critical care time - 35 min Time Spent With Patient Time with patient: 30 to 49 minutes with 50% spent counseling/coordinating care
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
[2022-09-22 09:51] LABS: x Labcorp Estim. Avg Glu (eAG) 114 mg/dL (.); x Labcorp Hemoglobin A1c 5.6 % (4.8-5.6)
== END 2022-09-21 13:12 | disposition short-term general hospital (02) | DRG 871 ==
LOC: ED 16:37 → AC 17:32 → ICU 21:36
PROVIDERS: Internal Medicine Pulmonary Disease; Nurse Practitioner Family; Admitting Provider Student in an Organized Health Care Education/Training Program; Emergency Provider Emergency Medicine; PCP Student in an Organized Health Care Education/Training Program; Referring Provider Emergency Medicine; Visit Provider Student in an Organized Health Care Education/Training Program
DX: A41.51 Sepsis due to Escherichia coli [E. coli] (principal); G93.41 Metabolic encephalopathy; I50.31 Acute diastolic (congestive) heart failure; J96.01 Acute respiratory failure with hypoxia; R65.21 Severe sepsis with septic shock; I13.0 Hypertensive heart and chronic kidney disease with heart failure and stage 1 through stage 4 chronic kidney disease, or unspecified chronic kidney disease; N18.4 Chronic kidney disease, stage 4 (severe); N13.2 Hydronephrosis with renal and ureteral calculous obstruction; N39.0 Urinary tract infection, site not specified; D69.6 Thrombocytopenia, unspecified; E03.9 Hypothyroidism, unspecified; H53.2 Diplopia; F31.9 Bipolar disorder, unspecified; G89.4 Chronic pain syndrome; E11.22 Type 2 diabetes mellitus with diabetic chronic kidney disease; B96.20 Unspecified Escherichia coli [E. coli] as the cause of diseases classified elsewhere; Z20.822 Contact with and (suspected) exposure to COVID-19; Z66 Do not resuscitate
CPT/HCPCS: 36415; 36592; 70450; 71045; 71250; 72125; 73650; 74176; 80048; 80053; 80061; 82550; 82570; 82962; 83036; 83605; 83690; 83735; 83880; 84145; 84300; 84443; 85007; 85025; 85610; 85730; 87040; 87077; 87086; 87154; 87186; 87633; 87635; 87797; 93005; 93307; 96365; 99285; C9803; J0295; J0696; J2020; J2543